=== PATIENT | female | born 2000 | race Caucasian/White ===

== ENCOUNTER 2019-06-26 09:07 | Emergency (ER) | payer SELFPAY ==
--- NOTE | 2019-06-26 09:12 | ED_ITS ---
HPI - Nausea/Vomiting/Diarrhea General: Chief complaint: Abdominal Pain Stated complaint: N/V Time Seen by Provider: 06/26/19 09:12 Source: patient Mode of arrival: ambulatory Limitations: no limitations History of Present Illness: HPI Narrative: Patient comes in today with 1 day history of nausea vomiting and diarrhea starting last night. Patient also reports a low-grade fever. Patient reports no significant pain. Patient does have reflux with gastritis. She routinely has to take pantoprazole but has been without it due to her animals getting into her prescriptions. Patient appears well. Patient appears in no pain. MD elicited complaint: nausea, vomiting and diarrhea Associated nausea: Yes Associated symtoms: Reports nausea Review of Systems General: Reports: 10 or more systems reviewed and unremarkable except in HPI and below GI: Reports: nausea, vomiting and diarrhea PFSH ED PFSH: Statuses (acute, chronic, etc) shown below reflect problem list status as previously entered and may not be historically accurate Social History Smoking and tobacco status: never smoked Physical Exam Const: COMMON NORMALS: no apparent distress and oriented x3 GENERAL APPEARANCE: cooperative HENMT: COMMON NORMALS: normocephalic, external ears normal, EAC's normal, TM's normal bilaterally and external nose normal HEAD & SCALP: normal to ins pection and normocephalic FACE & SINUS: normal facial exam NOSE: external nose normal GENERAL EAR: hearing not grossly impaired EXTERNAL EAR: Yes external ears normal EXTERNAL AUDITORY CANAL: EAC's normal TYMPANIC MEMBRANE: TM's normal bilaterally MOUTH: oral and palatal mucosa normal THROAT: posterior oropharynx normal Eye: COMMON NORMALS: PERRL and EOMs intact bilaterally PUPIL: Yes PERRL Neck/C-Spine: COMMON NORMALS: full ROM and no lymphadenopathy Lymph: LYMPHATIC: no lymphedema noted Chest: COMMONS NORMALS: inspection of chest normal and palpation of chest normal Resp: COMMON NORMALS: normal respiratory effort and clear to auscultation bilaterally AUSCULTATION: clear to auscultation bilaterally Cardio: COMMON NORMALS: regular rate and regular rhythm RATE: regular rate RHYTHM: regular rhythm GI: COMMON NORMALS: soft to palpation AUSCULTATION: Yes normoactive bowel sounds PALPATION: Yes soft and Yes tender (mild epigastric, and left abd, no rebound or guarding) : COMMON NORMALS: Yes no CVA tenderness BLADDER/KIDNEY EXAM: Yes no CVA tenderness Back/Pelvis: COMMON NORMALS: no CVA tenderness and thoracic and lumbar spine normal to inspection Extremity: COMMON NORMALS: normal to inspection GENERAL: No edema Neuro: COMMON NORMALS: oriented x3, moves all extremities and no focal motor deficits Psych: COMMON NORMALS: mental status grossly normal and cooperative Skin: COMMON NORMALS: no rashes or lesions noted GENERAL SKIN EXAM: no rashes or lesions noted Course Vital Signs: Vital signs: Vital Signs Temperature 98.4 F 06/26/19 09:13 Pulse Rate 66 06/26/19 12:17 Respiratory Rate 118 H 06/26/19 12:17 Blood Pressure 113/66 06/26/19 12:17 Pulse Oximetry 98 06/26/19 12:17 MDM - Nausea/Vomiting/Diarrhea MDM Narrative: Medical decision making narrative: Patient comes in today with complaints of nausea vomiting and diarrhea starting last night. On exam abdomen soft some mild tenderness in epigastric area, vital signs are stable without fever. Respirations are even. Lungs are clear to auscultation. Patient does not appear ill. Differential diagnosis gastroenteritis, urinary tract infection, cholecystitis, pancreatitis, appendicitis, dehydration. Patient was given 1 ondansetron for nausea with good relief. Patient was tolerating p.o. fluids well. Laboratory values were normal without signs of sepsis or significant infection. Urine was normal. Reviewed exam with patient recommended treatment with fluids and rest and follow-up with primary care as needed. Patient should return to the ER for high fever or persistent vomiting. Patient reports understanding agreed to plan. Lab Data: Labs: Lab Results 06/26/19 06/26/19 06/26/19 Range/Units 09:26 09:26 09:50 WBC 7.5 (4.5-13.0) 10^3/ uL RBC 4.10 (4.1-5.3) 10^6/u L Hgb 12.6 (11.5-15.3) g/dL Hct 37.9 (37.0-47.0) % MCV 92.4 (81-99) fL MCH 30.7 (28.0-34.0) pg MCHC 33.2 (30.0-36.0) g/dL RDW 11.8 L (12.1-15.1) % Plt Count 232 (130-400) 10^3/c mm MPV 10.2 (7.4-10.4) fL Neut % (Auto) 50.9 % Lymph % (Auto) 34.4 % [place] % (Auto) 7.5 % Eos % (Auto) 6.4 % Baso % (Auto) 0.7 % Neut # (Auto) 3.8 (1.8-8.0) 10^3/u L Lymph # (Auto) 2.6 (1.5-6.5) 10^3/u L [place] # (Auto) 0.6 (0.2-0.9) 10^3/u L Eos # (Auto) 0.5 (0.0-0.8) 10^3/u L Baso # (Auto) 0.1 (0.0-0.1) 10^3/u L Nucleated RBC % (a uto) 0 % Nucleated RBCs # 0.0 /100WBC Sodium 140 (136-145) mmol/L Potassium 4.5 (3.5-5.1) mmol/L Chloride 106 (98-107) mmol/L Carbon Dioxide 24 (22-29) mmol/L Anion Gap 14.5 (5-19) BUN 17 (6-20) mg/dL Creatinine 0.7 (0.5-0.9) mg/dL GFR Calculation 106.7 (90-130) mL/min Glucose 101 (65-115) mg/dL Calcium 9.8 (8.5-10.5) mg/dL Total Bilirubin 0.3 (0.15-1.2) mg/dL AST 15 (0-32) U/L ALT 11 (0-33) U/L Alkaline Phosphata se 50 (35-105) IU/L Total Protein 7.6 (6.6-8.7) g/dL Albumin 4.5 (3.5-5.2) g/dL Globulin 3.1 (1.3-4.6) g/dL Lipase 17 (13-60) U/L Urine Color (Yellow) Urine Appearance (CLEAR) Urine pH (5-7) Ur Specific Gravit y (1.005-1.030) Urine Protein (Negative) Urine Glucose (UA) (Normal) Urine Ketones (Negative) Urine Occult Blood (Negative) Urine Nitrate (Negative) Urine Bilirubin (NEGATIVE) Urine Urobilinogen (Negative) mg/dL Ur Leukocyte Archana ase (Negative) Urine RBC (0-2) /hpf Urine WBC (0-5) /hpf Ur Squamous Epith Cells (0-5) Urine Bacteria (NONE) Urine Mucus Urine HCG, Qual Negative (Negative) Influenza Type A A g (Negative) POC Influenza B Ag (Negative) 06/26/19 06/26/19 Range/Units 09:50 09:50 WBC (4.5-13.0) 10^3/ uL RBC (4.1-5.3) 10^6/u L Hgb (11.5-15.3) g/dL Hct (37.0-47.0) % MCV (81-99) fL MCH (28.0-34.0) pg MCHC (30.0-36.0) g/dL RDW (12.1-15.1) % Plt Count (130-400) 10^3/c mm MPV (7.4-10.4) fL Neut % (Auto) % Lymph % (Auto) % [place] % (Auto) % Eos % (Auto) % Baso % (Auto) % Neut # (Auto) (1.8-8.0) 10^3/u L Lymph # (Auto) (1.5-6.5) 10^3/u L [place] # (Auto) (0.2-0.9) 10^3/u L Eos # (Auto) (0.0-0.8) 10^3/u L Baso # (Auto) (0.0-0.1) 10^3/u L Nucleated RBC % (a uto) % Nucleated RBCs # /100WBC Sodium (136-145) mmol/L Potassium (3.5-5.1) mmol/L Chloride (98-107) mmol/L Carbon Dioxide (22-29) mmol/L Anion Gap (5-19) BUN (6-20) mg/dL Creatinine (0.5-0.9) mg/dL GFR Calculation (90-130) mL/min Glucose (65-115) mg/dL Calcium (8.5-10.5) mg/dL Total Bilirubin (0.15-1.2) mg/dL AST (0-32) U/L ALT (0-33) U/L Alkaline Phosphata se (35-105) IU/L Total Protein (6.6-8.7) g/dL Albumin (3.5-5.2) g/dL Globulin (1.3-4.6) g/dL Lipase (13-60) U/L Urine Color Straw (Yellow) Urine Appearance Clear (CLEAR) Urine pH 6 (5-7) Ur Specific Gravit y 1.015 (1.005-1.030) Urine Protein Neg (Negative) Urine Glucose (UA) Norm (Normal) Urine Ketones Negative (Negative) Urine Occult Blood 3+ H (Negative) Urine Nitrate Negative (Negative) Urine Bilirubin Neg (NEGATIVE) Urine Urobilinogen Norm (Negative) mg/dL Ur Leukocyte Archana ase Negative (Negative) Urine RBC 5-10 H (0-2) /hpf Urine WBC 0-4 H (0-5) /hpf Ur Squamous Epith Cells 5-10 H (0-5) Urine Bacteria 1+ H (NONE) Urine Mucus Trace Urine HCG, Qual (Negative) Influenza Type A A g Negative (Negative) POC Influenza B Ag Negative (Negative) Discharge Plan Discharge Patient Disposition: Home, Self-Care Clinical Impression: Gastroenteritis Condition: Stable Prescriptions: New ondansetron HCl 4 mg tablet 4 mg PO Q8H PRN (Reason: nausea and vomiting) Qty: 10 RF: 0 Discharge Orders: Discharge Order (Routine); Ordered 06/26/19 Ordered By: Pepe Phillips Referrals: Milady Taylor MD [Primary Care Provider] - Discharge Diet: Usual diet Discharge Activity: Increase activity as tolerated Patient Instructions: Gastroenteritis (ED) Activity Restrictions/Additional Instructions: Drink plenty of fluids Activity as tolerated Acetaminophen and ibuprofen for fever Follow-up as needed Discharge Date/Time: 06/26/19 12:24 Coding Level of Care Code ED Chief Technologist for Chg Fwd Exam Problem Focused
[2019-06-26 09:13] VITALS: BP 119/79; PULSE 78; RESP 15; TEMP 36.9; O2SAT 97; BMI 22.6
[2019-06-26 09:37] LABS: Basophils # 0.1 10^3/uL (0.0-0.1); Basophils % 0.7 %; Eosinophils # 0.5 10^3/uL (0.0-0.8); Eosinophils % 6.4 %; Hematocrit 37.9 % (37.0-47.0); Hemoglobin 12.6 g/dL (11.5-15.3); Lymphocytes # 2.6 10^3/uL (1.5-6.5); Lymphocytes % 34.4 %; Mean Corpuscular HGB Conc 33.2 g/dL (30.0-36.0); Mean Corpuscular Hemoglobin 30.7 pg (28.0-34.0); Mean Corpuscular Volume 92.4 fL (81-99); Mean Platelet Volume 10.2 fL (7.4-10.4); Monocytes # 0.6 10^3/uL (0.2-0.9); Monocytes % 7.5 %; Neutrophils # 3.8 10^3/uL (1.8-8.0); Neutrophils % 50.9 %; Nucleated Red Blood Cells % 0 %; Platelet Count 232 10^3/cmm (130-400); Red Cell Distribution Width 11.8 % (12.1-15.1); White Blood Count 7.5 10^3/uL (4.5-13.0)
[2019-06-26] MEDS: ondansetron 4 MG Tablet PO (09:49)
[2019-06-26 09:54] LABS: Alanine Aminotransferase 11 U/L (0-33); Albumin Level 4.5 g/dL (3.5-5.2); Alkaline Phosphatase 50 IU/L (35-105); Anion Gap 14.5 (5-19); Aspartate Amino Transferase 15 U/L (0-32); Blood Urea Nitrogen 17 mg/dL (6-20); Calcium 9.8 mg/dL (8.5-10.5); Carbon Dioxide 24 mmol/L (22-29); Chloride 106 mmol/L (98-107); Globulin 3.1 g/dL (1.3-4.6); Glomerular Filtration Rate 106.7 mL/min (90-130); Glucose 101 mg/dL (65-115); Lipase 17 U/L (13-60); Potassium 4.5 mmol/L (3.5-5.1); Sodium 140 mmol/L (136-145); Total Bilirubin 0.3 mg/dL (0.15-1.2); Total Protein 7.6 g/dL (6.6-8.7)
[2019-06-26 10:23] LABS: Add Urine Microscopic? YES; Bilirubin Urine Neg (NEGATIVE); Blood Urine 3+ (Negative); Glucose Urine UA Norm (Normal); Ketones Urine Negative (Negative); Leukocyte Esterase Urine Negative (Negative); Nitrate Urine Negative (Negative); Protein Urine Neg (Negative); Specific Gravity, Urine 1.015 (1.005-1.030); Urine Appearance Clear (CLEAR); Urine Color Straw (Yellow); Urobilinogen Urine Norm (Negative); pH Urine 6 (5-7)
[2019-06-26 10:25] LABS: Mucus Urine TRACE
[2019-06-26 10:26] LABS: Add Urine Culture? No; Bacteria Urine 1+; WBC Urine 0-4 /hpf (0-5)
[2019-06-26 11:00] LABS: Influenza A by IFA Negative (Negative); Influenza B by IFA Negative (Negative)
--- NOTE | 2019-06-26 12:15 | PC.NURSE ---
patient ready discharge no needs voiced
[2019-06-26 12:17] VITALS: BP 113/66; PULSE 66; RESP 118; O2SAT 98
== END 2019-06-26 12:24 | disposition home or self-care (01) ==
PROVIDERS: Emergency Provider Nurse Practitioner Family; Family Provider Family Medicine; PCP Family Medicine
DX: K52.9 Noninfective gastroenteritis and colitis, unspecified (principal)
CPT/HCPCS: 36415; 80053; 81001; 81025; 83690; 85025; 87804; 99282; 99283; Q0162

== ENCOUNTER → 2019-08-20 12:41 | Outpatient (BNVA) | payer SELFPAY | PROVIDERS: Family Provider Family Medicine; PCP Family Medicine; Visit Provider Nurse Practitioner Family | DX: R05 Cough (principal) | CPT/HCPCS: 87400; 87635 ==

== ENCOUNTER 2019-12-07 18:04 | Emergency (ER) | payer SELFPAY ==
[2019-12-07 18:22] VITALS: BP 115/72; PULSE 80; RESP 16; TEMP 37.1; O2SAT 95; BMI 22.7
--- NOTE | 2019-12-07 18:47 | ECG_ITS ---
[facility] Test Date: 2019-12-07 Pat Name: Jennifer Hong Department: Room: Gender: Female Digital Asset Manager: : 2000 Requested By: Isela Eddy Order Number: [id number] Sandra MD: Sanket Kuo M.D. Measurements Intervals [place] Rate: 59 P: 60 [place]: 136 QRS: 50 QRSD: 100 T: 46 QT: 397 QTc: 395 Interpretive Statements SINUS BRADYCARDIA POSSIBLE RIGHT VENTRICULAR CONDUCTION DELAY [RSR (QR) IN V1/V2] Compared to ECG 03/09/2019 14:57:45 Sinus rhythm no longer present Sinus arrhythmia no longer present ST (T wave) deviation no longer present Electronically Signed On 12-08-2019 20:27:00 CDT by Sanket Kuo M.D. [id number]
--- NOTE | 2019-12-07 19:00 | US_ITS ---
WS: [id number] RIGHT UPPER QUADRANT ULTRASOUND HISTORY: abd pain COMPARISON: None available. Liver: 11.4 cm in length. Normal size and echogenicity with no intrahepatic dilatation. No mass. Gallbladder: Normally distended gallbladder with no stones or wall thickening. CBD: 0.3 cm Pancreas: Normal size and echogenicity. Right kidney: 10.8 cm in length. Normal echogenicity with no mass or hydronephrosis. Aorta and IVC: Unremarkable. No ascites. US/US gall bladder [id number] IMPRESSION: Normal RIGHT upper quadrant ultrasound.
--- NOTE | 2019-12-07 19:00 | ED_ITS ---
HPI - General Adult General: Chief complaint: General Medical Stated complaint: vomiting blood, syncope, cough Time Seen by Provider: 12/07/19 18:44 Source: patient Mode of arrival: ambulatory Limitations: no limitations History of Present Illness: HPI narrative: 19-year-old female who states she has a history of vomiting in the past along with [place] tears. Patient states she has had vomiting over the last 3 days with no relief. She states today she started vomiting blood and had a syncopal event. She states she has some epigastric abdominal pain. Denies any blood in her stools or diarrhea. She denies any worsening or improving factors. Onset (ago): day(s) Associated symptoms: Reports vomiting; Deny chest pain, dyspnea, headache(s) or rash Review of Systems Const: Denies: fever(s), chills, body aches or change in appetite Eyes: Denies: blurry vision or eye discomfort ENMT: Denies: throat pain or dental pain Card: Denies: chest pain Resp: Denies: dyspnea GI: Reports: vomiting : Denies: dysuria Musc: Denies: neck pain or back pain Skin/Breast: Denies: rash Neuro: Denies: headache(s) Psych: Denies: depression Santy/Lymph: Denies: easy bruising All/Imm: Denies: urticaria PFSH ED PFSH: Social History Smoking and tobacco status: never smoked Female Reproductive History: Date of last menstrual period: 12/07/19 Physical Exam Const: COMMON NORMALS: no acute distress, patient oriented x3 and healthy appearing HENMT: COMMON NORMALS: normocephalic and atraumatic HEAD & SCALP: normocephalic and atraumatic Eye: COMMON NORMALS: Equal, round and reactive pupils present and EOMs intact bilaterally PUPIL: Yes Equal, round and reactive pupils present Neck/C-Spine: COMMON NORMALS: full ROM and supple Chest: COMMONS NORMALS: normal inspection of the chest and normal palpation of entire chest wall Resp: COMMON NORMALS: normal respiratory effort, No retractions, No use of accessory muscles and clear to auscultation bilaterally AUSCULTATION: clear to auscultation bilaterally Cardio: COMMON NORMALS: regular rate, regular rhythm and No murmurs present (Cardio) RATE: regular rate RHYTHM: regular rhythm GI: COMMON NORMALS: Normal to inspection, nondistended, normoactive bowel sounds present, Soft to palpation, non-tender and no masses PALPATION: Yes Soft to palpation Extremity: COMMON NORMALS: normal to inspection and full ROM Neuro: COMMON NORMALS: patient oriented x3, moves all extremities and no focal motor deficits Psych: COMMON NORMALS: mental status grossly normal, Normal thought process present and cooperative THOUGHT PROCESS: Normal thought process present Skin: COMMON NORMALS: no rashes or lesions noted and no wounds GENERAL SKIN EXAM: no rashes or lesions noted Course Vital Signs: Vital signs: Vital Signs Temperature 98.7 F 12/07/19 18:22 Pulse Rate 75 12/07/19 21:11 Respiratory Rate 19 H 12/07/19 21:11 Blood Pressure 127/80 12/07/19 21:11 Pulse Oximetry 97 12/07/19 21:11 MDM - General Adult MDM Narrative: Medical decision making narrative: Patient presents here with vomiting that is chronic in nature. Patient also had some slight hematemesis likely from a [place] tear. Patient has no signs of major GI bleed. She feels improved here after Zofran. Abdominal exam is benign and ultrasound of the gallbladder was negative. Will prescribe her Zofran and she is stable for discharge. She is to return if worsening. Lab Data: Labs: Lab Results 12/07/19 12/07/19 Range/Units 19:16 19:16 WBC 13.2 H (4.5-13.0) 10^3/ uL RBC 4.43 (4.1-5.3) 10^6/u L Hgb 14.1 (11.5-15.3) g/dL Hct 41.6 (37.0-47.0) % MCV 93.9 (81-99) fL MCH 31.8 (28.0-34.0) pg MCHC 33.9 (30.0-36.0) g/dL RDW 11.6 L (12.1-15.1) % Plt Count 270 (130-400) 10^3/c mm MPV 10.1 (7.4-10.4) fL Neut % (Auto) 61.5 % Lymph % (Auto) 20.0 % [place] % (Auto) 5.7 % Eos % (Auto) 11.7 % Baso % (Auto) 0.8 % Neut # (Auto) 8.13 H (1.8-8.0) 10^3/u L Lymph # (Auto) 2.6 (1.5-6.5) 10^3/u L [place] # (Auto) 0.8 (0.2-0.9) 10^3/u L Eos # (Auto) 1.6 H (0.0-0.8) 10^3/u L Baso # (Auto) 0.1 (0.0-0.1) 10^3/u L Nucleated RBC % (a uto) 0 % Nucleated RBCs # 0.0 /100WBC Sodium 139 (136-145) mmol/L Potassium 3.9 (3.5-5.1) mmol/L Chloride 106 (98-107) mmol/L Carbon Dioxide 24 (22-29) mmol/L Anion Gap 12.9 (5-19) BUN 10 (6-20) mg/dL Creatinine 0.5 (0.5-0.9) mg/dL GFR Calculation 157.3 H (90-130) mL/min Glucose 88 (65-115) mg/dL Calculated Osmolal ity 283 L (285-295) mOsm/k g Calcium 9.4 (8.5-10.5) mg/dL Total Bilirubin 0.5 (0.15-1.2) mg/dL AST 14 (0-32) U/L ALT 10 (0-33) U/L Alkaline Phosphata se 49 (35-105) IU/L Total Protein 7.4 (6.6-8.7) g/dL Albumin 4.6 (3.5-5.2) g/dL Globulin 2.8 (1.3-4.6) g/dL Lipase 13 (13-60) U/L EKG Data^: EKG 1: Attestation: I personally reviewed and interpreted this EKG as follows: EKG interpretation date: 12/07/19 EKG interpretation time: 19:25 Interpretation: sinus dash hr [address] or t wave abnormalities qrs 100 qtc 396 Discharge Plan Discharge Patient Disposition: Home, Self-Care Clinical Impression: Vomiting Qualifiers: Vomiting type: unspecified Vomiting Intractability: non-intractable Nausea presence: with nausea Qualified Code(s): R11.2 - Nausea with vomiting, unspecif ied Condition: Stable Prescriptions: New ondansetron 4 mg tablet,disintegrating 4 mg PO Q6H PRN (Reason: nausea and vomiting) Qty: 14 RF: 0 No Action iron 325 mg (65 mg iron) Tablet 325 mg PO DAILY RF: 0 Discharge Orders: Discharge Order (Routine); Ordered 12/07/19 Ordered By: Isela Eddy Referrals: Milady Taylor MD [Primary Care Provider] - 1-3 days Discharge Diet: Advance as tolerated Discharge Activity: Resume usual activity Patient Instructions: Acute Nausea and Vomiting (ED) Discharge Date/Time: 12/07/19 21:07 Coding Level of Care Code ED Processing Operator for Chg Fwd Exam Comprehensive
[2019-12-07] MEDS: sodium chloride 0.9% 1,000 ML 999 ML IV (19:10)
[2019-12-07 19:12] VITALS: BP 127/59; PULSE 73; RESP 18; O2SAT 95
[2019-12-07 19:24] LABS: Basophils # 0.1 10^3/uL (0.0-0.1); Basophils % 0.8 %; Eosinophils # 1.6 10^3/uL (0.0-0.8); Eosinophils % 11.7 %; Hematocrit 41.6 % (37.0-47.0); Hemoglobin 14.1 g/dL (11.5-15.3); Lymphocytes # 2.6 10^3/uL (1.5-6.5); Mean Corpuscular HGB Conc 33.9 g/dL (30.0-36.0); Mean Corpuscular Hemoglobin 31.8 pg (28.0-34.0); Mean Corpuscular Volume 93.9 fL (81-99); Mean Platelet Volume 10.1 fL (7.4-10.4); Monocytes # 0.8 10^3/uL (0.2-0.9); Monocytes % 5.7 %; Neutrophils # 8.13 10^3/uL (1.8-8.0); Neutrophils % 61.5 %; Nucleated Red Blood Cells % 0 %; Platelet Count 270 10^3/cmm (130-400); Red Blood Count 4.43 10^6/uL (4.1-5.3); Red Cell Distribution Width 11.6 % (12.1-15.1); White Blood Count 13.2 10^3/uL (4.5-13.0)
[2019-12-07 19:46] LABS: Alanine Aminotransferase 10 U/L (0-33); Albumin Level 4.6 g/dL (3.5-5.2); Alkaline Phosphatase 49 IU/L (35-105); Anion Gap 12.9 (5-19); Aspartate Amino Transferase 14 U/L (0-32); Blood Urea Nitrogen 10 mg/dL (6-20); Calcium 9.4 mg/dL (8.5-10.5); Carbon Dioxide 24 mmol/L (22-29); Chloride 106 mmol/L (98-107); Globulin 2.8 g/dL (1.3-4.6); Glomerular Filtration Rate 157.3 mL/min (90-130); Glucose 88 mg/dL (65-115); Lipase 13 U/L (13-60); Osmolality Calculated 283 mOsm/kg (285-295); Potassium 3.9 mmol/L (3.5-5.1); Sodium 139 mmol/L (136-145); Total Bilirubin 0.5 mg/dL (0.15-1.2); Total Protein 7.4 g/dL (6.6-8.7)
[2019-12-07 19:51] VITALS: PULSE 65; RESP 21; O2SAT 99
[2019-12-07 20:46] VITALS: BP 124/72; PULSE 75; RESP 13; O2SAT 98
[2019-12-07 21:11] VITALS: BP 127/80; PULSE 75; RESP 19; O2SAT 97
== END 2019-12-07 21:07 | disposition home or self-care (01) ==
PROVIDERS: Emergency Provider Emergency Medicine; PCP Family Medicine
DX: R11.2 Nausea with vomiting, unspecified (principal)
CPT/HCPCS: 12345; 36415; 76705; 80053; 83690; 85025; 93005; 96360; 99283; 99284; J7030

== ENCOUNTER → 2020-01-25 16:17 | Outpatient (BNVA) | payer SELFPAY | PROVIDERS: PCP Family Medicine; Visit Provider Nurse Practitioner Family | DX: J02.0 Streptococcal pharyngitis (principal) | CPT/HCPCS: 87071; 87880 ==

== ENCOUNTER 2020-01-30 15:08 | Emergency (ER) | payer SELFPAY ==
[2020-01-30] VITALS (8 sets, daily range): BP systolic 126–136; BP diastolic 76–83; PULSE 88–102; RESP 17–18; TEMP 36.9; O2SAT 94–98; BMI 24.3
--- NOTE | 2020-01-30 15:11 | XRR_ITS ---
PROCEDURE INFORMATION: Exam: XR Chest, 2 Views Exam date and time: 01/30/2020 3:11 PM Age: 19 years old Clinical indication: Shortness of breath; Additional info: Cough TECHNIQUE: Imaging protocol: XR of the chest Views: 2 views. COMPARISON: CR Chest 1 [place] [id number] 03/22/2019 1:45 PM FINDINGS: Lungs: Lungs are clear bilaterally. Pleural space: No pleural effusion. No pneumothorax. Heart/Mediastinum: The cardiac silhouette and mediastinal contours are unremarkable. Bones/joints: Unremarkable for age. XR/XR chest 2V* [id number] IMPRESSION: No acute cardiopulmonary process.
--- NOTE | 2020-01-30 15:28 | CTR_ITS ---
PROCEDURE INFORMATION: Exam: CT Head Without Contrast Exam date and time: 01/30/2020 4:01 PM Age: 19 years old Clinical indication: Syncope and collapse; Patient HX: Syncope episode hitting R forehead on bathtub; Additional info: Fell, hit head, vomiting TECHNIQUE: Imaging protocol: Computed tomography of the head without contrast. Sagittal and coronal reformatted images were created and reviewed. Radiation optimization: All CT scans at this facility use at least one of these dose optimization techniques: automated exposure control; mA and/or kV adjustment per patient size (includes targeted exams where dose is matched to clinical indication); or iterative reconstruction. COMPARISON: No relevant prior studies available. RADIATION DOSE METRICS: Total DLP (mGy-cm): 725.28 FINDINGS: Brain: No acute intracranial hemorrhage. No acute infarct. No intra-axial or extra-axial masses. [place]-white matter differentiation is preserved. No cerebral edema. No extra-axial fluid collections. No midline shift. No evidence for Chiari 1 malformation. Ventricles: No hydrocephalus. Bones/joints: No acute fracture. Paranasal sinuses: Mild mucoperiosteal thickening in the the right and left ethmoid sinuses. Other visualized paranasal sinuses are clear. Mastoid air cells: Visualized mastoid air cells are clear bilaterally. Orbits: No acute abnormality in the visualized orbits. Soft tissues: The extracranial soft tissues are unremarkable. CT/CT head wo con* [id number] IMPRESSION: 1. No acute abnormality of the brain. 2. Mild mucoperiosteal thickening in the the right and left ethmoid sinuses. Radiation Dose CTDIVOL = (mGy): DLP = 725.28 (mGy-cm)
--- NOTE | 2020-01-30 15:29 | W.ED.GENADLT ---
HPI - General Adult General: Chief complaint: General Medical Stated complaint: SOB, COUGH Time Seen by Provider: 01/30/20 15:21 History of Present Illness: HPI narrative: This patient is a 19-year-old female presenting with cough and shortness of breath. She also says she passed out twice today at home and the last time she passed out she fell and hit her head on the bathtub. She has pain in her forehead and started vomiting after that. She is concerned about a head injury. She is also concerned about her difficulty breathing. She started having symptoms over last weekend and was seen at urgent care on Friday or Friday. They diagnosed her with a sinus infection and put her on Augmentin. She has not really started feeling better from that. She has not had any fevers. She denies body aches. She has not been exposed to anyone with COVID as far she knows. She has a history of asthma when she was young but has not had a problems with it in several years. She does not routinely use inhalers. She has been using some sinus spray. She thinks she passed out today because she was having so much trouble breathing. She also admits that sometimes she gets panic attacks and that causes her to pass out. Onset (ago): week(s) (1) Location: head Severity: moderate Associated symptoms: Reports dyspnea, headache(s), nausea, syncope and vomiting; Deny chest pain, malaise or rash Review of Systems General: Reports: 10 or more systems reviewed and unremarkable except in HPI and below Const: Reports: fatigue; Denies: fever(s), chills or malaise Eyes: Denies: change in vision ENMT: Reports: ear or mastoid pain and sinus pain; Denies: odynophagia Card: Reports: syncope; Denies: chest pain or swelling of feet/ankles Resp: Reports: dyspnea, productive cough and wheezing; Denies: non-productive cough GI: Reports: nausea and vomiting; Denies: abdominal pain : Denies: flank pain or difficulty voiding Musc: Denies: neck pain or back pain Skin/Breast: Denies: rash Neuro: Reports: headache(s); Denies: numbness in extremities or weakness in extremities Santy/Lymph: Denies: easy bruising or easy bleeding [facility] ED PFSH: Medical History (Updated 01/30/20 @ 17:35 by Vanessa Hoang MD) Asthma Social History Smoking and tobacco status: never smoked Female Reproductive History: Date of last menstrual period: 01/30/20 Physical Exam Const: COMMON NORMALS: no acute distress, patient oriented x3, no limitations and alert GENERAL APPEARANCE: cooperative HENMT: HEAD & SCALP: normal to inspection FACE & SINUS: normal facial exam Eye: GENERAL EYE: appearance normal, both eyes and all related structures Neck/C-Spine: COMMON NORMALS: supple, no meningeal signs and no JVD Chest: COMMONS NORMALS: normal inspection of the chest Resp: EFFORT & INSPECTION: Yes tachypneic, Yes labored and Yes uses accessory muscles AUSCULTATION: wheezes Cardio: COMMON NORMALS: no JVD, regular rate, regular rhythm and No murmurs present (Cardio) RATE: regular rate RHYTHM: regular rhythm GI: COMMON NORMALS: Normal to inspection, nondistended, normoactive bowel sounds present, Soft to palpation and non-tender INSPECTION: Yes normal to inspection AUSCULTATION: Yes normoactive bowel sounds PALPATION: Yes Soft to palpation Back/Pelvis: COMMON NORMALS: thoracic and lumbar spine normal to inspection Extremity: COMMON NORMALS: normal to inspection Neuro: COMMON NORMALS: patient oriented x3, moves all extremities, no focal motor deficits and no sensory deficits noted SENSORIUM/ORIENTATION: Yes alert MENINGEAL SIGNS: Yes no meningeal signs Psych: COMMON NORMALS: mental status grossly normal, cooperative and normal affect Skin: COMMON NORMALS: no rashes or lesions noted and turgor normal GENERAL SKIN EXAM: no rashes or lesions noted and turgor normal Course ED course: Patient presents with symptoms of sinus congestion and cough. I do not think she is at high risk for COVID with normal oxygen saturation and significant wheezing on exam. So far I have not seen wheezing as a symptom or physical finding associated with COVID. She is on Augmentin that was given to her at urgent care. Chest x-ray was clear. CT of her head was negative and this was done because she had fallen and hit her head with subsequent vomiting. She was given a DuoNeb treatment which improved her lung sounds somewhat but she was still wheezing pretty significantly. She is also been given oral prednisone and I have ordered a repeat nebulizer treatment. I expect that she will clear up well enough to go home. I think her passing out may have been related to her anxiety as she suspects or possibly due to the significant wheezing that she has. Vital Signs: Vital signs: Vital Signs Temperature 98.4 F 01/30/20 15:22 Pulse Rate 98 01/30/20 18:30 Respiratory Rate 17 01/30/20 17:59 Blood Pressure 126/76 01/30/20 18:30 Pulse Oximetry 94 01/30/20 18:30 Discharge Plan Discharge Patient Disposition: Home Clinical Impression: Acute upper respiratory infection, Acute bronchospasm Syncope Qualifiers: Syncope type: unspecified Qualified Code(s): R55 - Syncope and collapse Closed head injury Qualifiers: Encounter type: initial encounter Qualified Code(s): S09.90XA - Unspecified injury of head, initial encounter Condition: Stable Prescriptions: New albuterol sulfate 90 mcg/actuation HFA aerosol inhaler 2 inh INHALATION Q4H PRN (Reason: shortness of breath or wheezing) Qty: 18 RF: 0 No Action amoxicillin-pot clavulanate [Augmentin] 875-125 mg tablet 1 tab PO BID 10 Days Qty: 20 RF: 0 ferrous sulfate [iron] 325 mg (65 mg iron) Tablet 325 mg PO DAILY RF: 0 Multiple Vitamin, Womens Tablet 1 tab PO DAILY RF: 0 Discharge Orders: Discharge Order (Routine); Ordered 01/30/20 Ordered By: Vanessa Hoang Referrals: Milady Taylor MD [Primary Care Provider] - Discharge Diet: Usual diet Discharge Activity: Resume usual activity Patient Instructions: Upper Respiratory Infection (ED), Bronchospasm (ED) Activity Restrictions/Additional Instructions: Return to the ED if increasing shortness of breath, fever, vomiting or any other new or concerning symptoms. Use the albuterol every 4 hours as needed for wheezing or shortness of breath. 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
--- NOTE | 2020-01-30 15:40 | PC.NURSE ---
pt to radiology
[2020-01-30] MEDS: ipratropium-albuterol 3 mL Neb INHALATION (15:43)
[2020-01-30] MEDS: predniSONE 20 mg Tablet 60 MG PO (16:02)
[2020-01-30] MEDS: albuterol 8 gm MDI 2 PUFF INHALATION (17:58)
== END 2020-01-30 18:30 | disposition home or self-care (01) ==
PROVIDERS: Emergency Provider Emergency Medicine; PCP Family Medicine
DX: J06.9 Acute upper respiratory infection, unspecified (principal); J98.01 Acute bronchospasm; R55 Syncope and collapse; S09.8XXA Other specified injuries of head, initial encounter; W19.XXXA Unspecified fall, initial encounter
CPT/HCPCS: 12345; 70450; 71046; 94640; 99281; 99283; J3535; J7512; J7611

== ENCOUNTER → 2020-03-14 13:33 | Outpatient (BNVA) | payer SELFPAY | PROVIDERS: PCP Family Medicine; Visit Provider Nurse Practitioner | DX: R82.90 Unspecified abnormal findings in urine (principal) | CPT/HCPCS: 81000 ==

== ENCOUNTER 2020-05-17 07:37 | Emergency (ER) | payer OTHER, SELFPAY ==
[2020-05-17 08:13] VITALS: BP 138/84; PULSE 77; RESP 18; TEMP 36.2; O2SAT 97; BMI 24.2
--- NOTE | 2020-05-17 08:26 | XR_ITS ---
WS: [id number] Exam: XR chest 1V portable [id number] Date/Time of Exam: 05/17/2020 8:26 AM Reason For Exam: cough Comparison 01/30/2020. Findings: The lungs are clear and fully expanded. Costophrenic angles are sharp. No infiltrates. Bronchovascula r relief appears normal. Cardiac silhouette is unremarkable. Bony elements are intact. XR/XR chest 1V portable [id number] IMPRESSION: Unremarkable chest radiograph.
--- NOTE | 2020-05-17 08:26 | W.ED.NAVMDI ---
HPI - Nausea/Vomiting/Diarrhea General: Chief complaint: Nausea/Vomiting/Diarrhea Stated complaint: n/v Time Seen by Provider: 05/17/20 07:59 Source: patient Mode of arrival: ambulatory Limitations: no limitations History of Present Illness: HPI Narrative: 20-year-old female patient presents to the emergency department with 3-day onset of nausea vomiting. She reports vomiting was worse this morning. Not able to keep down water. She reports onset of cough congestion x1 week, states increased usage of inhaler, albuterol twice daily. States 101 fever onset yesterday. Last bowel movement yesterday. Last menstrual period today, previous menstrual cycle April 18, 2020. States previous menstrual cycle heavier than normal. She reports this morning, passed a large clot vaginally. Contributes abdominal pain to her menstrual cycle. Describes abdominal pain similar to that of her menstrual cycle. Reports does not have insurance, uses albuterol inhaler sparingly to make albuterol supply longer. 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) Associated symtoms: Reports cough (7 days - increased use of albuterol inhaler - twice daily), dysuria (x 3 days), fevers/chills, malaise, nausea and short of breath; Denies anxiety, chest pain, headache(s) or palpitations Treatment prior to arrival: other (increased use of inhaler) Review of Systems General: Reports: 10 or more systems reviewed and unremarkable except in HPI and below Const: Reports: malaise Eyes: Denies: blurry vision or eye redness ENMT: Denies: throat pain, uvular edema, oral sores, dental pain, halitosis or disequilibrium Card: Denies: chest pain, palpitations, irregular heart rhythm, swelling of feet/ankles or dyspnea on exertion Resp: Reports: productive cough, wheezing and chest congestion; Denies: dyspnea or non-productive cough GI: Reports: abdominal pain, nausea, vomiting and GI cramping; Denies: hematemesis, heartburn, diarrhea or constipation : Reports: dysuria (x 3 days), vaginal bleeding, dysmenorrhea, change in menstrual flow and pelvic pain; Denies: difficulty voiding or urinary urgency Musc: Denies: neck pain, back pain, joint pain or joint swelling Skin/Breast: Denies: rash or pruritus Neuro: Denies: headache(s), weakness in extremities or behavioral changes Psych: Reports: change in appetite; Denies: anxiety or depression Sanyt/Lymph: Denies: easy bruising PFSH ED PFSH: Medical History (Updated 05/17/20 @ 09:58 by WALLY Quesada) Asthma Social History Smoking and tobacco status: never smoked Alcohol intake: never Substance/Drug Use: never Female Reproductive History: Date of last menstrual period: 05/17/20 Physical Exam Const: COMMON NORMALS: no acute distress, patient oriented x3, healthy appearing and alert GENERAL APPEARANCE: cooperative, comfortable and well hydrated HENMT: COMMON NORMALS: normocephalic, Normal external nose present and moist oral mucous membranes HEAD & SCALP: normocephalic NOSE: Normal external nose present THROAT: no uvular edema Eye: COMMON NORMALS: Equal, round and reactive pupils present and EOMs intact bilaterally GENERAL EYE: appearance normal, both eyes and all related structures PUPIL: Yes Equal, round and reactive pupils present Neck/C-Spine: COMMON NORMALS: full ROM and no lymphadenopathy GENERAL: Yes normal visual inspection and Yes trachea midline CERVICAL SPINE: Yes cervical ROM normal Lymph: LYMPHATIC: no lymphadenopathy noted Chest: COMMONS NORMALS: normal inspection of the chest and normal palpation of entire chest wall Resp: COMMON NORMALS: normal respiratory effort, No retractions and No use of accessory muscles EFFORT & INSPECTION: Yes able to speak in complete sentences, No respiratory distress, No decreased respiratory effort, No labored, Yes Actively coughing and Yes audible wheezes (LLE and LUE) Cardio: COMMON NORMALS: regular rate, regular rhythm, S1 normal heart sound present, S2 normal heart sound present and Peripheral pulses 2+ throughout RATE: regular rate RHYTHM: regular rhythm HEART SOUNDS: S1 normal heart sound present and S2 normal heart sound present PERIPHERAL PULSES: Peripheral pulses 2+ throughout GI: COMMON NORMALS: Normal to inspection, nondistended, normoactive bowel sounds present and Soft to palpation INSPECTION: Yes normal to inspection AUSCULTATION: Yes normoactive bowel sounds PALPATION: Yes Soft to palpation and Yes Tenderness to palpation present (GI) (suprapubic) : COMMON NORMALS: Yes no CVA tenderness BLADDER/KIDNEY EXAM: Yes no CVA tenderness Back/Pelvis: COMMON NORMALS: no CVA tenderness and thoracic and lumbar spine normal to inspection Extremity: COMMON NORMALS: normal to inspection and capillary refill normal Neuro: COMMON NORMALS: patient oriented x3 and no focal motor deficits SENSORIUM/ORIENTATION: Yes alert Psych: COMMON NORMALS: mental status grossly normal, Normal thought process present, cooperative, normal affect, speech normal and activity/motor behavior normal APPEARANCE: Yes grossly normal ACTIVITY/MOTOR BEHAVIOR: Yes appropriate eye contact SPEECH: Yes normal speech THOUGHT PROCESS: Normal thought process present Skin: COMMON NORMALS: no rashes or lesions noted and turgor normal GENERAL SKIN EXAM: no rashes or lesions noted and turgor normal Course ED course: 20-year-old female patient presents to the emergency department with nausea vomiting, acute asthma exacerbation and dysmenorrhea. hCG test negative. CBC with white blood count 11.3 thousand, chemistry unremarkable, Zofran administered here in the ED, improved symptoms that she was able to tolerate p.o. fluids. She was also administered Toradol for pain, menstrual, during her stay, her mother called to report her sister tested positive today for Covid. She reports exposure to her sister, patient requests to be tested for Covid today. Advised to remain in quarantine until results are known. Work note was provided, social service will assist with primary care follow-up. Advised to return to the emergency department if she developed chest pain, difficulty breathing or worsening asthma symptoms. She did not appear dehydrated today or nor did she appear in distress. Vital Signs: Vital signs: Vital Signs Temperature 97.2 F L 05/17/20 08:13 Pulse Rate 77 05/17/20 08:13 Respiratory Rate 18 05/17/20 08:13 Blood Pressure 138/84 05/17/20 08:13 Pulse Oximetry 97 05/17/20 08:13 MDM - Nausea/Vomiting/Diarrhea Lab Data: Labs: Lab Results 05/17/20 05/17/20 05/17/20 Range/Units 08:50 08:52 08:52 WBC 11.3 H (4.0-10.0) 10^3/ uL RBC 4.58 (4.1-5.3) 10^6/u L Hgb 14.2 (11.5-15.3) g/dL Hct 43.2 (37.0-47.0) % MCV 94.3 (81-99) fL MCH 31.0 (28.0-34.0) pg MCHC 32.9 (30.0-36.0) g/dL RDW 11.3 L (12.1-15.1) % Plt Count 286 (130-400) 10^3/c mm MPV 9.9 (7.4-10.4) fL Neut % (Auto) 42.0 % Lymph % (Auto) 25.7 % Throckmorton % (Auto) 6.0 % Eos % (Auto) 24.7 % Baso % (Auto) 1.4 % Neut # (Auto) 4.73 (1.8-7.7) 10^3/u L Lymph # (Auto) 2.9 (0.8-4.8) 10^3/u L Throckmorton # (Auto) 0.7 (0.2-0.9) 10^3/u L Eos # (Auto) 2.8 H (0.0-0.8) 10^3/u L Baso # (Auto) 0.2 H (0.0-0.1) 10^3/u L Nucleated RBC % (a uto) 0 % Nucleated RBCs # 0.0 /100WBC Sodium 139 (136-145) mmol/L Potassium 4.2 (3.5-5.1) mmol/L Chloride 105 (98-107) mmol/L Carbon Dioxide 26 (22-29) mmol/L Anion Gap 12.2 (5-19) BUN 8 (6-20) mg/dL Creatinine 0.6 (0.5-0.9) mg/dL GFR Calculation 126.2 (90-130) mL/min Glucose 98 (65-115) mg/dL Calculated Osmolal ity 286 (285-295) mOsm/k g Calcium 8.8 (8.5-10.5) mg/dL Total Bilirubin 0.5 (0.15-1.2) mg/dL AST 13 (0-32) U/L ALT 13 (0-33) U/L Alkaline Phosphata se 51 (35-105) IU/L Total Protein 7.2 (6.6-8.7) g/dL Albumin 4.2 (3.5-5.2) g/dL Globulin 3.0 (1.3-4.6) g/dL HCG, Qual (Negative) Urine Color Holley (Yellow) Urine Appearance Sl hazy (CLEAR) Urine pH 5 (5-7) Ur Specific Gravit y 1.020 (1.005-1.030) Urine Protein Neg (Negative) Urine Glucose (UA) Norm (Normal) Urine Ketones 1+ H (Negative) Urine Blood 3+ H (Negative) Urine Nitrate Negative (Negative) Urine Bilirubin Neg (Negative) Urine Urobilinogen 1 H (Negative) mg/dL Ur Leukocyte Archana ase Negative (Negative) Urine RBC >100 H (0-2) /hpf Urine WBC 0-4 H (0-5) /hpf Ur Squamous Epith Cells 0-4 H (0-5) /hpf Amorphous Sediment Not Reportable Urine Bacteria 1+ H (NONE) /hpf 05/17/20 Range/Units 08:52 WBC (4.0-10.0) 10^3/ uL RBC (4.1-5.3) 10^6/u L Hgb (11.5-15.3) g/dL Hct (37.0-47.0) % MCV (81-99) fL MCH (28.0-34.0) pg MCHC (30.0-36.0) g/dL RDW (12.1-15.1) % Plt Count (130-400) 10^3/c mm MPV (7.4-10.4) fL Neut % (Auto) % Lymph % (Auto) % Throckmorton % (Auto) % Eos % (Auto) % Baso % (Auto) % Neut # (Auto) (1.8-7.7) 10^3/u L Lymph # (Auto) (0.8-4.8) 10^3/u L Throckmorton # (Auto) (0.2-0.9) 10^3/u L Eos # (Auto) (0.0-0.8) 10^3/u L Baso # (Auto) (0.0-0.1) 10^3/u L Nucleated RBC % (a uto) % Nucleated RBCs # /100WBC Sodium (136-145) mmol/L Potassium (3.5-5.1) mmol/L Chloride (98-107) mmol/L Carbon Dioxide (22-29) mmol/L Anion Gap (5-19) BUN (6-20) mg/dL Creatinine (0.5-0.9) mg/dL GFR Calculation (90-130) mL/min Glucose (65-115) mg/dL Calculated Osmolal ity (285-295) mOsm/k g Calcium (8.5-10.5) mg/dL Total Bilirubin (0.15-1.2) mg/dL AST (0-32) U/L ALT (0-33) U/L Alkaline Phosphata se (35-105) IU/L Total Protein (6.6-8.7) g/dL Albumin (3.5-5.2) g/dL Globulin (1.3-4.6) g/dL HCG, Qual Negative (Negative) Urine Color (Yellow) Urine Appearance (CLEAR) Urine pH (5-7) Ur Specific Gravit y (1.005-1.030) Urine Protein (Negative) Urine Glucose (UA) (Normal) Urine Ketones (Negative) Urine Blood (Negative) Urine Nitrate (Negative) Urine Bilirubin (Negative) Urine Urobilinogen (Negative) mg/dL Ur Leukocyte Archana ase (Negative) Urine RBC (0-2) /hpf Urine WBC (0-5) /hpf Ur Squamous Epith Cells (0-5) /hpf Amorphous Sediment Urine Bacteria (NONE) /hpf Imaging Data^: CXR: Radiologist's impression: [address] [address] XRay Report Signed Patient: Jennifer Hong Unit #: [id number] : [id number] Age/Sex: 20 / F ADM Date: 05/17/20 Loc: ER Room/Bed: Attending Dr: Ordering Provider/Ordering MD: Paris Madden Date of Service: 05/17/20 Procedure(s): XR chest 1V portable [id number] Accession Number(s): [id number] Report Number: [id number] WS: [id number] Exam: XR chest 1V portable [id number] Date/Time of Exam: 05/17/2020 8:26 AM Reason For Exam: cough Comparison 01/30/2020. Findings: The lungs are clear and fully expanded. Costophrenic angles are sharp. No infiltrates. Bronchovascular relief appears normal. Cardiac silhouette is unremarkable. Bony elements are intact. XR/XR chest 1V portable [id number] IMPRESSION: Unremarkable chest radiograph. Dictated By: Ayaan Rodriguez DO Signed By: Ayaan Rodriguez DO Signed Date/Time: 05/17/20934 DD/ 3 Discharge Plan Discharge Patient Disposition: Home Clinical Impression: Suspected 2019 novel coronavirus infection, Bronchitis, Dysmenorrhea Asthma Qualifiers: Asthma severity: mild Asthma persistence: persistent Asthma complication type: with acute exacerbation Qualified Code(s): J45.31 - Mild persistent asthma with (acute) exacerbation Condition: Stable Prescriptions: New azithromycin 250 mg tablet See Rx Instructions .ROUTE .COMPLEX Qty: 6 RF: 0 prednisone 20 mg tablet 20 mg PO BID 5 Days Qty: 10 RF: 0 Ventolin HFA 90 mcg/actuation HFA aerosol inhaler 2 puff INHALATION Q4H PRN (Reason: shortness of breath or wheezing) Qty: 18 RF: 0 No Action phenazopyridine [Pyridium] 200 mg tablet 200 mg PO TID Qty: 6 RF: 0 nitrofurantoin monohyd/m-cryst [Macrobid] 100 mg capsule 100 mg PO Q12H 5 Days Qty: 10 RF: 0 ferrous sulfate [iron] 325 mg (65 mg iron) Tablet 325 mg PO DAILY RF: 0 Multiple Vitamin, Womens Tablet 1 tab PO DAILY RF: 0 albuterol sulfate 90 mcg/actuation HFA aerosol inhaler 2 inh INHALATION Q4H PRN (Reason: shortness of breath or wheezing) Qty: 18 RF: 0 Discharge Orders: Discharge ED (Routine); Ordered 05/17/20 Ordered By: Paris Madden Referrals: Milady Taylor MD [Primary Care Provider] - Discharge Diet: Advance as tolerated and Clear Liquid Discharge Activity: Limit activity as instructed Patient Instructions: Dysmenorrhea (ED), Asthma (ED), Acute Bronchitis (ED), Moderate and Severe Persistent Asthma (ED), Viral Syndrome (ED), Abdominal Pain (ED) Activity Restrictions/Additional Instructions: rest at home until COVID results are called to you Remain in quarantine - push fluids, Tylenol or Ibuprofen as needed for pain as directed on bottle Take antibiotics and prednisone with food to avoid stomach upset Clear liquid diet for the first 24 hours then advance as tolerated, avoid fried greasy fatty spicy foods until stomach is better and nausea resolved Return to the emergency department if you develop weakness, inability to catch her breath, difficulty breathing or chest pain No work today or tomorrow If Covid results are positive, [facility] will be contacting you with further instructions. Stand Alone Forms: Work/School Release Coding Level of Care Code ED Principal Technologist for [employer] F[employer] Exam Comprehensive
[2020-05-17] MEDS: sodium chloride 0.9% 500 ML 999 ML IV (08:51)
[2020-05-17] MEDS: ondansetron 2 mg/ML SDV 2 mL 4 MG IVP (08:51)
[2020-05-17 09:18] LABS: Basophils # 0.2 10^3/uL (0.0-0.1); Basophils % 1.4 %; Eosinophils # 2.8 10^3/uL (0.0-0.8); Eosinophils % 24.7 %; Hematocrit 43.2 % (37.0-47.0); Hemoglobin 14.2 g/dL (11.5-15.3); Lymphocytes # 2.9 10^3/uL (0.8-4.8); Lymphocytes % 25.7 %; Mean Corpuscular HGB Conc 32.9 g/dL (30.0-36.0); Mean Corpuscular Volume 94.3 fL (81-99); Mean Platelet Volume 9.9 fL (7.4-10.4); Monocytes # 0.7 10^3/uL (0.2-0.9); Neutrophils # 4.73 10^3/uL (1.8-7.7); Nucleated Red Blood Cells % 0 %; Platelet Count 286 10^3/cmm (130-400); Red Blood Count 4.58 10^6/uL (4.1-5.3); Red Cell Distribution Width 11.3 % (12.1-15.1); White Blood Count 11.3 10^3/uL (4.0-10.0)
[2020-05-17 09:19] LABS: Urine Appearance SL Hazy (CLEAR); Urine Color Amber (Yellow)
[2020-05-17 09:20] LABS: Add Urine Microscopic? YES; Bacteria Urine 1+ /hpf; Bilirubin Urine Neg (Negative); Blood Urine 3+ (Negative); Glucose Urine UA Norm (Normal); Ketones Urine 1+ (Negative); Leukocyte Esterase Urine Negative (Negative); Nitrate Urine Negative (Negative); Protein Urine Neg (Negative); RBC Urine >100 /hpf (0-2); Squamous Epithelial Cell Urine 0-4 /hpf (0-5); Urobilinogen Urine 1 mg/dL (Negative); WBC Urine 0-4 /hpf (0-5); pH Urine 5 (5-7)
[2020-05-17 09:21] LABS: Add Urine Culture? Yes
[2020-05-17 09:21] LABS: HCG, Serum Qual Negative (Negative)
[2020-05-17 09:32] LABS: Alanine Aminotransferase 13 U/L (0-33); Albumin Level 4.2 g/dL (3.5-5.2); Alkaline Phosphatase 51 IU/L (35-105); Anion Gap 12.2 (5-19); Aspartate Amino Transferase 13 U/L (0-32); Blood Urea Nitrogen 8 mg/dL (6-20); Calcium 8.8 mg/dL (8.5-10.5); Carbon Dioxide 26 mmol/L (22-29); Chloride 105 mmol/L (98-107); Glomerular Filtration Rate 126.2 mL/min (90-130); Glucose 98 mg/dL (65-115); Osmolality Calculated 286 mOsm/kg (285-295); Potassium 4.2 mmol/L (3.5-5.1); Sodium 139 mmol/L (136-145); Total Bilirubin 0.5 mg/dL (0.15-1.2); Total Protein 7.2 g/dL (6.6-8.7)
[2020-05-17] MEDS: ketorolac 30 mg/mL INJ 15 MG IVP (10:05)
[2020-05-17 10:11] VITALS: BP 138/77; PULSE 77; RESP 16; O2SAT 97
--- NOTE | 2020-05-17 11:58 | DCPLANNER ---
Addendum entered by Divya Garcia 05/17/20 12:02: Patient returned continuous pillowcase cutter phone call, patient stated that she does not have insurance at this time, transplant case manager will mail patient both of the financial aid advisor applications for the hospital to fill out and turn in. global sales manager will put business card in with the applications, so when patient needs to get established with someone, that she can call transplant case manager to get something scheduled for patient. Original Note: global sales manager had message to speak with patient about getting established with a primary care physician. global sales manager called phone number [phone], was unable to speak with patient and no voicemail box set up.
[2020-05-18 11:36] LABS: Coronavirus Test Green County DETECTED
== END 2020-05-17 10:11 | disposition home or self-care (01) ==
PROVIDERS: Emergency Provider Nurse Practitioner Family; PCP Family Medicine
DX: U07.1 COVID-19 (principal); J40 Bronchitis, not specified as acute or chronic; N94.6 Dysmenorrhea, unspecified; J45.31 Mild persistent asthma with (acute) exacerbation
CPT/HCPCS: 12345; 71045; 80053; 81001; 84703; 85025; 87086; 87635; 96374; 96375; 99282; 99283; J1885; J2405; J7040

== ENCOUNTER 2020-06-28 10:15 | Emergency (ER) | payer SELFPAY ==
--- NOTE | 2020-06-28 10:18 | W.ED.GENADLT ---
HPI - General Adult General: Chief complaint: General Medical Stated complaint: N/V, Sore throat Time Seen by Provider: 06/28/20 10:16 Source: patient Mode of arrival: ambulatory Limitations: no limitations History of Present Illness: HPI narrative: Patient is a 20-year-old female who presents to ED today with a complaint of shortness of breath and nausea and vomiting. Patient tells me she has had shortness of breath ever since her COVID infection on 05/17/2020. Patient does have a history of asthma in which she treats with albuterol as needed. She states last night she began developing nausea and vomiting and states she vomited several times yesterday. She does not describe any bilious or bloody emesis. She has had multiple episodes of dry heaving this morning. She is not complaining of abdominal pain. She has had normal bowel movements. She denies any urinary complaints. She has not been running fevers. Onset (ago): day(s) Relieving factors: none Exacerbating factors: other (eating) Associated symptoms: Reports dyspnea, nausea and vomiting; Deny chest pain, headache(s), malaise, rash, palpitations or syncope Treatments prior to arrival: none Review of Systems Const: Denies: fever(s), chills, body aches, fatigue or malaise Eyes: Denies: change in vision, blurry vision or photophobia ENMT: Denies: throat pain or odynophagia Card: Denies: chest pain, palpitations, irregular heart rhythm, edema, swelling of feet/ankles, lightheadedness, syncope, pre-syncope, orthopnea or leg pain with exertion Resp: Reports: dyspnea and non-productive cough; Denies: productive cough, pain on inspiration, hemoptysis or chest congestion GI: Reports: nausea and vomiting; Denies: abdominal pain, diarrhea, change in bowel habits or change in stool character : Denies: flank pain, difficulty voiding, dysuria, urinary frequency, urinary urgency, vaginal odor, vaginal discharge or pelvic pain Musc: Denies: neck pain or back pain Skin/Breast: Denies: rash Neuro: Denies: headache(s), numbness in extremities, weakness in extremities or sensory changes PFS ED PFSH: Medical History (Updated 06/28/20 @ 11:18 by MEGAN Ortiz) Asthma Social History Smoking and tobacco status: never smoked Alcohol intake: never Female Reproductive History: Date of last menstrual period: 05/17/20 Physical Exam Const: COMMON NORMALS: no acute distress, average body habitus, patient oriented x3, no limitations, healthy appearing, alert and well nourished GENERAL APPEARANCE: cooperative ORIENTATION/CONSCIOUSNESS: Yes awake, Yes oriented to person, Yes oriented to place and Yes oriented to time HENMT: COMMON NORMALS: normocephalic, atraumatic, hearing grossly normal bilaterally, external ears normal, EAC's normal, TM's normal bilaterally, Normal external nose present, Normal nasal mucous membranes and turbinates present, moist oral mucous membranes and oropharynx normal HEAD & SCALP: normal to inspection, normocephalic and atraumatic FACE & SINUS: normal facial exam and sinuses nontender NOSE: Normal external nose present and Normal nasal mucous membranes and turbinates present EXTERNAL EAR: Yes external ears normal EXTERNAL AUDITORY CANAL: EAC's normal TYMPANIC MEMBRANE: TM's normal bilaterally Neck/C-Spine: COMMON NORMALS: full ROM, no lymphadenopathy and no meningeal signs Resp: COMMON NORMALS: normal respiratory effort and clear to auscultation bilaterally AUSCULTATION: clear to auscultation bilaterally Cardio: COMMON NORMALS: regular rate and regular rhythm RATE: regular rate RHYTHM: regular rhythm GI: COMMON NORMALS: Normal to inspection, nondistended, normoactive bowel sounds present, Soft to palpation, non-tender, No hepatosplenomegaly present and no masses PALPATION: Yes Soft to palpation and Yes No hepatosplenomegaly present : COMMON NORMALS: Yes no CVA tenderness BLADDER/KIDNEY EXAM: Yes no CVA tenderness Back/Pelvis: COMMON NORMALS: no CVA tenderness Extremity: GENERAL: Yes normal exam except as noted Neuro: COMMON NORMALS: patient oriented x3 SENSORIUM/ORIENTATION: Yes alert, Yes oriented to person, Yes oriented to place and Yes oriented to time MENINGEAL SIGNS: Yes no meningeal signs Skin: COMMON NORMALS: no rashes or lesions noted GENERAL SKIN EXAM: no rashes or lesions noted Course Vital Signs: Vital signs: Vital Signs Temperature 97.7 F 06/28/20 10:19 Pulse Rate 91 06/28/20 10:19 Respiratory Rate 18 06/28/20 10:19 Blood Pressure 132/83 06/28/20 10:19 Pulse Oximetry 97 06/28/20 10:30 MDM - General Adult MDM Narrative: Medical decision making narrative: Patient is in no acute distress. Her vital signs are perfect. CXR is normal. Labs today are non-concerning. negative. Wells score of 0. I do not feel any further labs or imaging is warranted on her visit today. Spoke to CM and she will work on getting her set up with a PCP. Return to ED precautions given. Lab Data: Labs: Lab Results 06/28/20 06/28/20 06/28/20 Range/Units 10:41 10:41 10:41 WBC 14.0 H (4.0-10.0) 10^3/ uL RBC 4.64 (4.1-5.3) 10^6/u L Hgb 14.5 (11.5-15.3) g/dL Hct 42.8 (37.0-47.0) % MCV 92.2 (81-99) fL MCH 31.3 (28.0-34.0) pg MCHC 33.9 (30.0-36.0) g/dL RDW 11.5 L (12.1-15.1) % Plt Count 254 (130-400) 10^3/c mm MPV 9.5 (7.4-10.4) fL Neut % (Auto) 58.7 % Lymph % (Auto) 15.4 % [place] % (Auto) 5.8 % Eos % (Auto) 19.1 % Baso % (Auto) 0.8 % Neut # (Auto) 8.20 H (1.8-7.7) 10^3/u L Lymph # (Auto) 2.2 (0.8-4.8) 10^3/u L [place] # (Auto) 0.8 (0.2-0.9) 10^3/u L Eos # (Auto) 2.7 H (0.0-0.8) 10^3/u L Baso # (Auto) 0.1 (0.0-0.1) 10^3/u L Nucleated RBC % (a uto) 0 % Nucleated RBCs # 0.0 /100WBC Sodium 139 (136-145) mmol/L Potassium 4.2 (3.5-5.1) mmol/L Chloride 104 (98-107) mmol/L Carbon Dioxide 25 (22-29) mmol/L Anion Gap 14.2 (5-19) BUN 10 (6-20) mg/dL Creatinine 0.5 (0.5-0.9) mg/dL GFR Calculation 155.7 H (90-130) mL/min Glucose 91 (65-115) mg/dL Calculated Osmolal ity 287 (285-295) mOsm/k g Calcium 8.8 (8.5-10.5) mg/dL Total Bilirubin 0.5 (0.15-1.2) mg/dL AST 12 (0-32) U/L ALT 12 (0-33) U/L Alkaline Phosphata se 48 (35-105) IU/L Total Protein 7.4 (6.6-8.7) g/dL Albumin 4.2 (3.5-5.2) g/dL Globulin 3.2 (1.3-4.6) g/dL HCG, Qual Negative (Negative) Imaging Data^: CXR: Radiologist's impression: [address] [address] XRay Report Signed Patient: Jennifer Hong Unit #: [id number] : 2000 Age/Sex: 20 / F ADM Date: 06/28/20 Loc: ER Room/Bed: Attending Dr: Ordering Provider/Ordering MD: Jacklyn Johnson Date of Service: 06/28/20 Procedure(s): XR chest 1V portable [id number] Accession Number(s): [id number] Report Number: [id number] WS: [id number] Portable AP upright chest, 06/28/2020 Clinical Data: SOB Comparison: Portable chest, 05/17/2020. Findings: No nodules, masses or effusions are seen. The heart is normal. The pulmonary vascularity is not increased. No pneumonia or pneumothorax is seen. XR/XR chest 1V portable [id number] Impression: Negative chest. Dictated By: Lainey Jean MD Signed By: Lainey Jean MD Signed Date/Time: 06/28/20 1043 DD/ 1042 Discharge Plan Discharge Patient Disposition: Home Clinical Impression: Asthma Qualifiers: Asthma severity: mild Asthma persistence: intermittent Asthma complication type: uncomplicated Qualified Code(s): J45.20 - Mild intermittent asthma, uncomplicated Nausea & vomiting Qualifiers: Vomiting type: unspecified Vomiting Intractability: non-intractable Qualified Code(s): R11.2 - Nausea with vomiting, unspecified Condition: Stable Prescriptions: New promethazine 25 mg tablet 25 mg PO TID PRN (Reason: nausea and vomiting) Qty: 14 RF: 0 Continued albuterol sulfate 90 mcg/actuation HFA aerosol inhaler 2 inh INHALATION Q4H PRN (Reason: shortness of breath or wheezing) Qty: 18 RF: 0 No Action phenazopyridine [Pyridium] 200 mg tablet 200 mg PO TID Qty: 6 RF: 0 nitrofurantoin monohyd/m-cryst [Macrobid] 100 mg capsule 100 mg PO Q12H 5 Days Qty: 10 RF: 0 ferrous sulfate [iron] 325 mg (65 mg iron) Tablet 325 mg PO DAILY RF: 0 Multiple Vitamin, Womens Tablet 1 tab PO DAILY RF: 0 azithromycin 250 mg tablet See Rx Instructions .ROUTE .COMPLEX Qty: 6 RF: 0 Ventolin HFA 90 mcg/actuation HFA aerosol inhaler 2 puff INHALATION Q4H PRN (Reason: shortness of breath or wheezing) Qty: 18 RF: 0 Discharge Orders: Discharge ED (Routine); Ordered 06/28/20 Ordered By: Jacklyn Johnson Coding Level of Care Code ED Registered Nursing Professor for Chg Fwd Exam Comprehensive
[2020-06-28 10:19] VITALS: BP 132/83; PULSE 91; RESP 18; TEMP 36.5; O2SAT 100; BMI 24.3
--- NOTE | 2020-06-28 10:25 | XR_ITS ---
WS: [id number] Portable AP upright chest, 06/28/2020 Clinical Data: SOB Comparison: Portable chest, 05/17/2020. Findings: No nodules, masses or effusions are seen. The heart is normal. The pulmonary vascularity is not increased. No pneumonia or pneumothorax is seen. XR/XR chest 1V portable [id number] Impression: Negative chest.
[2020-06-28 10:30] VITALS: O2SAT 97
[2020-06-28 10:48] LABS: Basophils # 0.1 10^3/uL (0.0-0.1); Basophils % 0.8 %; Eosinophils # 2.7 10^3/uL (0.0-0.8); Eosinophils % 19.1 %; Hematocrit 42.8 % (37.0-47.0); Hemoglobin 14.5 g/dL (11.5-15.3); Lymphocytes # 2.2 10^3/uL (0.8-4.8); Lymphocytes % 15.4 %; Mean Corpuscular HGB Conc 33.9 g/dL (30.0-36.0); Mean Corpuscular Hemoglobin 31.3 pg (28.0-34.0); Mean Corpuscular Volume 92.2 fL (81-99); Mean Platelet Volume 9.5 fL (7.4-10.4); Monocytes # 0.8 10^3/uL (0.2-0.9); Monocytes % 5.8 %; Neutrophils % 58.7 %; Nucleated Red Blood Cells % 0 %; Platelet Count 254 10^3/cmm (130-400); Red Blood Count 4.64 10^6/uL (4.1-5.3); Red Cell Distribution Width 11.5 % (12.1-15.1)
[2020-06-28 11:07] LABS: HCG, Serum Qual Negative (Negative)
[2020-06-28 11:12] LABS: Alanine Aminotransferase 12 U/L (0-33); Albumin Level 4.2 g/dL (3.5-5.2); Alkaline Phosphatase 48 IU/L (35-105); Anion Gap 14.2 (5-19); Aspartate Amino Transferase 12 U/L (0-32); Blood Urea Nitrogen 10 mg/dL (6-20); Calcium 8.8 mg/dL (8.5-10.5); Carbon Dioxide 25 mmol/L (22-29); Chloride 104 mmol/L (98-107); Globulin 3.2 g/dL (1.3-4.6); Glomerular Filtration Rate 155.7 mL/min (90-130); Glucose 91 mg/dL (65-115); Osmolality Calculated 287 mOsm/kg (285-295); Potassium 4.2 mmol/L (3.5-5.1); Sodium 139 mmol/L (136-145); Total Bilirubin 0.5 mg/dL (0.15-1.2); Total Protein 7.4 g/dL (6.6-8.7)
[2020-06-28 11:25] VITALS: BP 112/75; PULSE 81; O2SAT 97
[2020-06-28] MEDS: promethazine 25 mg/mL SDV 1 mL IM (11:28)
== END 2020-06-28 11:25 | disposition home or self-care (01) ==
PROVIDERS: Emergency Provider Physician Assistant
DX: J45.20 Mild intermittent asthma, uncomplicated (principal); R11.2 Nausea with vomiting, unspecified
CPT/HCPCS: 12345; 36415; 71045; 80053; 84703; 85025; 96372; 99281; 99283; J2550

== ENCOUNTER 2020-08-10 10:28 | Emergency (ER) | payer SELFPAY ==
[2020-08-10 10:41] VITALS: BP 127/64; PULSE 81; RESP 16; TEMP 36.4; O2SAT 97; BMI 25.0
--- NOTE | 2020-08-10 10:50 | ED_ITS ---
HPI - Headache General: Chief Complaint: Headache Stated Complaint: headache Time Seen by Provider: 08/10/20 10:40 Source: patient Mode of arrival: ambulatory Limitations: no limitations History of Present Illness: HPI Narrative: Patient is a 20-year-old female who presents to ED today for evaluation of a migraine headache. Patient tells me she has had a history of migraine headaches for a few years now. She states that her headaches are always centered behind her right eye. She states headaches are often accompanied by blurry vision. She has had 2 previous episodes where she has lost complete vision of her right eye for approximately 30 minutes. She states she will be able to take Tylenol and states her vision returns to normal when her headache goes away. She complains of right peripheral vision loss currently. Patient also complains of some nausea and vomiting. She has not seen a neurologist for her headaches previously. She is otherwise healthy. MD elicited complaint: headache and migraine Pertinent past history: migraines Onset (ago): day(s) Onset description: gradually Location: right and retro-orbital Severity: moderate Pain scale (0-10): 6 Exacerbating factors: light and noise Relieving factors: other (tylenol) Context: occurred at rest Associated symptoms: Reports nausea and vomiting; Deny chest pain, confusion, fever(s), lightheadedness, malaise, rash or syncope Review of Systems Const: Denies: fever(s), chills, body aches, fatigue or malaise Eyes: Reports: change in vision, blind spots (currently complains of right peripheral vision loss) and photophobia; Denies: blurry vision, floaters or seeing flashes ENMT: Denies: odynophagia Card: Denies: chest pain, palpitations, irregular heart rhythm, l ightheadedness, syncope or dyspnea on exertion Resp: Denies: dyspnea, productive cough or pain on inspiration GI: Reports: nausea and vomiting; Denies: abdominal pain or change in stool character : Denies: flank pain or dysuria Musc: Denies: neck pain, back pain or joint pain Skin/Breast: Denies: rash Neuro: Reports: headache(s) and dizziness; Denies: numbness in extremities, weakness in extremities, sensory changes, lack of coordination, difficulty walking, frequent falls, vertigo, confusion, behavioral changes or Slurred speech present [facility] ED PFSH: Medical History (Updated 08/10/20 @ 12:48 by MEGAN Ortiz) Asthma Surgical History (Updated 07/24/20 @ 19:24 by Ivan Graf MD) H/O tympanostomy (~2001) S/P tonsillectomy (~2004) Age 5[address] Performed [address] Beckford at [facility] Family History (Updated 07/24/20 @ 19:16 by Ivan Graf MD) Mother Diabetes Hyperlipidemia Hypertension Stroke CAD (coronary artery disease) Social History (Updated 07/24/20 @ 19:16 by Ivan Graf MD) Smoking and tobacco status: never smoked Alcohol intake: never Female Reproductive History: Date of last menstrual period: 06/16/20 Physical Exam Const: COMMON NORMALS: average body habitus, patient oriented x3, no limitations, healthy appearing, alert and well nourished GENERAL APPEARANCE: cooperative ORIENTATION/CONSCIOUSNESS: Yes awake, Yes oriented to person, Yes oriented to place and Yes oriented to time OTHER: nausea-dry heaving in room HENMT: COMMON NORMALS: normocephalic, atraumatic, hearing grossly normal bilaterally, external ears normal, EAC's normal and TM's normal bilaterally HEAD & SCALP: normal to inspection, normocephalic and atraumatic FACE & SINUS: normal facial exam and sinuses nontender EXTERNAL EAR: Yes external ears normal EXTERNAL AUDITORY CANAL: EAC's normal TYMPANIC MEMBRANE: TM's normal bilaterally Eye: COMMON NORMALS: Equal, round and reactive pupils present, EOMs intact bilaterally and conjunctivae normal GENERAL EYE: appearance normal, both eyes and all related structures and normal light reflex VISUAL ACUITY: Yes acuity normal ALIGNMENT: Yes alignment normal PERIORBITAL: periorbital findings normal CONJUNCTIVA: Yes conjunctivae normal SCLERA: sclerae normal CORNEA: Yes corneas normal PUPIL: Yes Equal, round and reactive pupils present DIRECT OPHTHALMOSCOPY: Yes normal light reflex Neck/C-Spine: COMMON NORMALS: full ROM, no lymphadenopathy, supple and no meningeal signs Chest: COMMONS NORMALS: normal inspection of the chest Resp: COMMON NORMALS: normal respiratory effort and clear to auscultation bilaterally AUSCULTATION: clear to auscultation bilaterally Cardio: COMMON NORMALS: regular rate and regular rhythm RATE: regular rate RHYTHM: regular rhythm GI: COMMON NORMALS: Normal to inspection, nondistended, normoactive bowel sounds present, Soft to palpation, non-tender, No hepatosplenomegaly present and no masses PALPATION: Yes Soft to palpation and Yes No hepatosplenomegaly present : COMMON NORMALS: Yes no CVA tenderness BLADDER/KIDNEY EXAM: Yes no CVA tenderness Back/Pelvis: COMMON NORMALS: no CVA tenderness and thoracic and lumbar spine normal to inspection Extremity: COMMON NORMALS: normal to inspection Neuro: SRINIVAS COMA SCALE: document GCS findings Srinivas coma scale eye opening: Spontaneous Srinivas coma scale verbal response: Orientated [place] coma scale motor response: Obey commands [place] coma scale total score: 15 COMMON NORMALS: patient oriented x3, CN's II-XII intact bilaterally, moves all extremities, no focal motor deficits and gait normal SENSORIUM/ORIENTATION: Yes alert, Yes oriented to person, Yes oriented to place and Yes oriented to time MENINGEAL SIGNS: Yes no meningeal signs Skin: COMMON NORMALS: no rashes or lesions noted GENERAL SKIN EXAM: no rashes or lesions noted Course Vital Signs: Vital signs: Vital Signs Temperature 97.5 F L 08/10/20 10:41 Pulse Rate 58 L 08/10/20 12:10 Respiratory Rate 17 08/10/20 12:10 Blood Pressure 127/71 08/10/20 12:10 Pulse Oximetry 100 08/10/20 12:10 MDM - Headache MDM Narrative: Medical decision making narrative: Patient reports her headache is now a 3/10. She states her right peripheral vision loss has subsided. CT imaging is negative. She has no other neurological findings. Symptoms sound suspicious for an ocular migraine. We will have patient follow-up with Dr. Grande for further evaluation and treatment options. Imaging Data^: CT Head: Radiologist's impression: [address] [address] [address] Scan Report Signed Patient: Jennifer Hong Unit #: [id number] : 2000 Age/Sex: 20 / F ADM Date: 08/10/20 Loc: ER Room/Bed: Attending Dr: Ordering Provider/Ordering MD: Jacklyn Johnson Date of Service: 08/10/20 Procedure(s): CT head wo con* [id number] Accession Number(s): [id number] Report Number: [id number] WS: [id number] CT HEAD NONCONTRAST HISTORY: ARREOLA; visual changes TECHNIQUE: Contiguous axial imaging performed through the brain in 2.5 mm i maging. Bone and soft tissue windows. Sagittal and coronal reformats reviewed. All CT scans at [facility] use at least one of these dose optimization techniques: automated exposure control; mA and/or kV adjustment per patient size (includes targeted exams where dose is matched to clinical indication); or iterative reconstruction. DLP: 781.35 mGy.cm COMPARISON: 01/30/2020 No acute intracranial hemorrhage, midline shift or mass effect. No atrophy or prior infarcts or herniation. Ventricles: Normal size with no hydrocephalus. Paranasal sinuses: As visualized are clear. Mastoid air cells: Well pneumatized. Calvarium and scalp: Skull is intact with no soft tissue edema or swelling. CT/CT head wo con* [id number] IMPRESSION: Negative head CT. Dictated By: Kandace Billingsley DO Signed By: Kandace Billingsley DO Signed Date/Time: 08/10/20 1202 DD/ 1200 Discharge Plan Discharge Patient Disposition: Home Clinical Impression: Ocular migraine Condition: Stable Prescriptions: No Action Xulane 150-35 mcg/24 hr patch weekly 1 patch transdermal Q7D Qty: 4 RF: 12 ferrous sulfate [iron] 325 mg (65 mg iron) Tablet 325 mg PO DAILY RF: 0 Multiple Vitamin, Womens Tablet 1 tab PO DAILY RF: 0 albuterol sulfate 90 mcg/actuation HFA aerosol inhaler 2 inh INHALATION Q4H PRN (Reason: shortness of breath or wheezing) Qty: 18 RF: 0 Discharge Orders: Discharge ED (Routine); Ordered 08/10/20 Ordered By: Jacklyn Johnson Referrals: Bonnie Grande MD [Physician] - Patient Instructions: Headache - Migraine (Adult), Ocular Migraine (ED) Activity Restrictions/Additional Instructions: Case management should contact you in the next few days to try and set you up with an appointment with a neurologist/Dr. Grande so she can further evaluate your migraine headaches and offer treatment options. Stand Alone Forms: Work/School Release Coding Level of Care Code ED Liquid Flavor Compounder for Chg Fwd Exam Comprehensive
[2020-08-10 10:52] VITALS: PULSE 73; RESP 16; O2SAT 98
--- NOTE | 2020-08-10 11:21 | CT_ITS ---
WS: [id number] CT HEAD NONCONTRAST HISTORY: ARREOLA; visual changes TECHNIQUE: Contiguous axial imaging performed through the brain in 2.5 mm imaging. Bone and soft tiss ue windows. Sagittal and coronal reformats reviewed. All CT scans at [facility] use at ast one of these dose optimization techniques: automated exposure control; mA and/or kV adjustment pe r patient size (includes targeted exams where dose is matched to clinical indication); or iterative r econstruction. DLP: 781.35 mGy.cm COMPARISON: 01/30/2020 No acute intracranial hemorrhage, midline shift or mass effect. No atrophy or prior infarcts or herniation. Ventricles: Normal size with no hydrocephalus. Paranasal sinuses: As visualized are clear. Mastoid air cells: Well pneumatized. Calvarium and scalp: Skull is intact with no soft tissue edema or swelling. CT/CT head wo con* [id number] IMPRESSION: Negative head CT.
[2020-08-10] MEDS: sodium chloride 0.9% 1,000 ML 999 ML IV (11:26)
[2020-08-10] MEDS: ondansetron 2 mg/ML SDV 2 mL 4 MG IVP (11:27)
[2020-08-10] MEDS: diphenhydrAMINE 50 mg/mL SDV 1mL 25 MG IVP (11:28)
[2020-08-10] MEDS: ketorolac 60 mg/2 mL INJ 30 MG IVP (11:29)
[2020-08-10] MEDS: dexamethasone 10 mg/mL INJ 6 MG IV (11:30)
[2020-08-10 11:33] VITALS: BP 127/64; PULSE 89; RESP 17; O2SAT 100
[2020-08-10 12:10] VITALS: BP 127/71; PULSE 58; RESP 17; O2SAT 100
== END 2020-08-10 13:15 | disposition home or self-care (01) ==
PROVIDERS: Emergency Provider Physician Assistant
DX: G43.809 Other migraine, not intractable, without status migrainosus (principal)
CPT/HCPCS: 70450; 96374; 96375; 99283; J1100; J1200; J1885; J2405; J7030

== ENCOUNTER → 2020-09-18 12:26 | Outpatient (BNVA) | payer SELFPAY | PROVIDERS: Visit Provider Specialist | DX: G43.711 Chronic migraine without aura, intractable, with status migrainosus (principal); R55 Syncope and collapse; R00.2 Palpitations | CPT/HCPCS: 99204 ==

== ENCOUNTER → 2020-10-04 12:41 | Outpatient (BNVA) | payer SELFPAY | PROVIDERS: Visit Provider Specialist | DX: G40.909 Epilepsy, unspecified, not intractable, without status epilepticus (principal) | CPT/HCPCS: 95816 ==

== ENCOUNTER → 2020-10-09 10:14 | Outpatient (BNVA) | payer SELFPAY | PROVIDERS: Visit Provider Obstetrics & Gynecology | DX: Z01.419 Encounter for gynecological examination (general) (routine) without abnormal findings (principal); Z11.3 Encounter for screening for infections with a predominantly sexual mode of transmission | CPT/HCPCS: 87491; 87591; 88175 ==

== ENCOUNTER 2020-10-10 13:03 | Emergency (ER) | payer SELFPAY ==
[2020-10-10 13:40] VITALS: BP 134/73; PULSE 87; RESP 18; TEMP 36.6; O2SAT 97; BMI 26.2
[2020-10-10 13:47] VITALS: BP 121/78; PULSE 95; RESP 18; O2SAT 95
--- NOTE | 2020-10-10 14:23 | XR_ITS ---
WS: [id number] Exam: XR chest 1V portable [id number] Date/Time of Exam: 10/10/2020 2:24 PM Reason For Exam: Cough Comparison 06/28/2020. Findings: The lungs are clear and fully expanded. Costophrenic angles are sharp. No infiltrates. Bronchovascula r relief appears normal. Cardiac silhouette is unremarkable. Bony elements are intact. XR/XR chest 1V portable [id number] IMPRESSION: Unremarkable chest radiograph.
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
--- NOTE | 2020-10-10 14:23 | XR_ITS ---
WS: [id number] Exam: [place] [id number] Date/Time of Exam: 10/10/2020 2:24 PM Reason For Exam: injury Findings: No fractures or bone anomalies are present. The clavicle is in adequate alignment. XR/[place] [id number] IMPRESSION: Negative right clavicle.
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
[2020-10-10 14:47] VITALS: BP 121/78; PULSE 101; RESP 18; O2SAT 97
[2020-10-10 15:28] VITALS: BP 129/75; PULSE 100; RESP 18; O2SAT 96
--- NOTE | 2020-10-11 15:53 | DCPLANNER ---
military exchange wireless manager had message to schedule a follow up appointment for patient with ortho. military exchange wireless manager called the ortho clinic, spoke with Talia, gave clinic patients information. military exchange wireless manager was told that patients information would be printed and reviewed. Clinic will call patient with appointment information.
--- NOTE | 2020-10-12 07:49 | DCPLANNER ---
Patient has a follow up appointment scheduled for Sunday, October 18, 2020 at 10:[address] Cruz at [facility]. Clinic will call patient with appointment information.
--- NOTE | 2020-12-08 15:16 | DCPLANNER ---
Patient had a follow up appointment scheduled for 10.12.20 at 10:[address] Cruz - patient did attend appointment.
== END 2020-10-10 15:31 | disposition home or self-care (01) ==
PROVIDERS: Emergency Provider Emergency Medicine
DX: S43.084A Other dislocation of right shoulder joint, initial encounter (principal); X58.XXXA Exposure to other specified factors, initial encounter; W16.712A Jumping or diving from boat striking water surface causing other injury, initial encounter
CPT/HCPCS: 29240; 71045; 73000; 73030; 99283

== ENCOUNTER 2020-10-18 07:50 | Outpatient (CLI) | payer SELFPAY ==
--- NOTE | 2020-10-18 08:00 | USCV_ITS ---
Jennifer Hong Age: 20 Gender: F : 2000 Exam Date: 10/18/2020 08:31 Ordering Phys: Bonnie Grande MD Technologist: NOLBERTO GARCIA Exam Location: [facility] – [place] Indication: SYNCOPE WITH PALPATATIONS AND HEADACHE BP: / HR: 71 Rhythm: Sinus Technical Quality: Adequate MEASUREMENTS (Male / Female) Normal Values 2D ECHO LV Diastolic Diameter PLAX 4.1 cm 4.2 - 5.9 / 3.9 - 5.3 cm LV Systolic Diameter PLAX 2.8 cm LV Chamber Size 4.1 cm IVS Diastolic Thickness 0.8 cm 0.6 - 1.0 / 0.6 - 0.9 cm IVS Systolic Thickness 1.1 cm LVPW Diastolic Thickness 0.9 cm 0.6 - 1.0 / 0.6 - 0.9 cm LVPW Systolic Thickness 1.4 cm RV Chamber Size 2.8 cm LVOT Diameter 2.0 cm LV Ejection Fraction 2D Teich 61.4 % LV Ejection Fraction MOD 2C 52.2 % LV Ejection Fraction 2C AL 54.8 % LA Diameter 2.1 cm LA Width 2.6 cm LA Height 3.4 cm RA Width 2.9 cm RA Height 3.9 cm Aorta at Sinotubular Diameter 3.0 cm M-MODE LV Diastolic Diameter MM 4.3 cm 4.2 - 5.9 / 3.9 - 5.3 cm LV Systolic Diameter MM 2.9 cm LV Ejection Fraction MM Teich 60.7 % IVS Diastolic Thickness MM 0.9 cm 0.6 - 1.0 / 0.6 - 0.9 cm IVS Systolic Thickness MM 1.3 cm LVPW Diastolic Thickness MM 1.0 cm 0.6 - 1.0 / 0.6 - 0.9 cm LVPW Systolic Thickness MM 1.5 cm Aortic Annulus Diameter 3.1 cm LA Ao Ratio MM 0.8 MV E Point Septal Separation 0.4 cm DOPPLER AV Peak Velocity 124.0 cm/s LVOT Peak Velocity 78.0 cm/s AV Area Cont Eq vti 2.1 cm squared AV Area Cont Eq pk 2.0 cm squared MV Area PHT 3.0 cm squared Mitral E to A Ratio 1.9 MV E' Velocity 48.0 cm/s Mitral E to MV E' Ratio 5.0 Mitral E to LV E' Lateral Ratio 4.7 Mitral E to LV E' Septal Ratio 5.2 TR Peak Velocity 125.6 cm/s TR Peak Gradient 6.3 mmHg TR Mean Velocity 91.8 cm/s TR Mean Gradient 3.8 mmHg TR Velocity Time Integral 30.2 cm TV Peak E Velocity 86.0 cm/s Right Atrial Pressure 3.0 mmHg Pulmonary Artery Systolic Pressu 9.3 mmHg PV Peak Velocity 61.0 cm/s RV Acceleration Time 0.1 s RV Ejection Time 0.3 s RV AcT/ET 0.4 FINDINGS Left Ventricle Technically limited quality study because of poor visualization of cardiac structures. Normal left ventricular size. Grossly LV systolic function is normal. Regional wall motion abnormalities can not be asessed because of poor ultrasonic windows and limited visualization. Normal diastolic function Right Ventricle The right ventricle is normal in size and function. Right Atrium The right atrium is normal in size. Left Atrium The left atrium is normal in size. Mitral Valve Structurally normal mitral valve without significant stenosis or prolapse. There is no mitral regurgitation. Aortic Valve Grossly normal without stenosis. There is mild aortic regurgitation. Tricuspid Valve Structurally normal tricuspid valve without significant stenosis or regurgitation. Insufficient TR jet to calculate RVSP Pulmonic Valve Structurally normal pulmonic valve without significant stenosis. There is no pulmonic regurgitation. Pericardium Normal pericardium without effusion. Aorta Normal ascending aorta dimension. CONCLUSIONS LV systolic function is grossly normal. Regional wall motion abnormalities can not be asessed because of poor ultrasonic windows and limited visualization. Normal diastolic function Mild aortic regurgitation. No comparison studies are available Diony Hodgson MD (Electronically Signed) Final Date: 24 October 2020 22:44 S
== END 2020-10-18 07:51 | disposition home or self-care (01) ==
LOC: RAD 07:53
PROVIDERS: Visit Provider Specialist
DX: R00.2 Palpitations (principal); R55 Syncope and collapse; R51.9 Headache, unspecified; I35.1 Nonrheumatic aortic (valve) insufficiency
CPT/HCPCS: 93306

== ENCOUNTER → 2020-10-31 11:50 | Outpatient (BNVA) | payer SELFPAY | PROVIDERS: Visit Provider Specialist | DX: G43.709 Chronic migraine without aura, not intractable, without status migrainosus (principal) | CPT/HCPCS: 99214 ==

== ENCOUNTER 2020-11-01 09:16 | Outpatient (CLI) | payer SELFPAY ==
--- NOTE | 2020-11-01 09:30 | MR_ITS ---
WS: [id number] MRI RIGHT SHOULDER NONCONTRAST TECHNIQUE: Sagittal T2, coronal T1, T2 and proton density imaging. Axial gradient PDE imaging. CLINICAL INFORMATION: M24.419 - Recurrent dislocation, unspecified shoulder COMPARISON: None. FINDINGS: Normal right AC joint. Tiny amount of subacromial/subdeltoid fluid. Slight downsloping of the acromio n. Mild narrowing of the subacromial space. Normal distal supraspinatus. Normal infraspinatus normal teres minor. Normal subscapularis. Normal biceps tendon in the bicipital groove.Normal bone marrow si gnal in the humeral head and neck. Normal intra-articular biceps tendon. Normal biceps labral anchor. T2 hyperintense lobulated ganglion cyst measuring 9 x 10 mm along the dorsal glenoid labrum measuring 9 x 10 mm. Glenoid labrum appears grossly normal. Hill-Sachs deformity with flattening of the poste rior lateral humeral head. Normal bony glenoid. Recommend correlation for history of recurrent disloc ation. MR/MR shoulder RT wo con* [id number] IMPRESSION: 1. Chronic appearing Hill-Sachs deformity consistent with recurrent dislocatio n. No acute appearing edema. 2. Bony glenoid is normal in appearance. 3. Dorsal glenoid labrum cyst measuring 9 x 10 mm. Glenoid labrum appears jaison sly intact. 4. Normal rotator cuff. 5. Normal AC joint with trace subacromial/subdeltoid fluid. 6. Normal biceps tendon and biceps labral anchor.
== END 2020-11-01 09:17 | disposition home or self-care (01) ==
LOC: RADSHAW 09:18
PROVIDERS: Visit Provider Specialist
DX: M24.411 Recurrent dislocation, right shoulder (principal)
CPT/HCPCS: 73221

== ENCOUNTER 2020-11-05 04:52 | Emergency (ER) | payer SELFPAY ==
[2020-11-05] VITALS (7 sets, daily range): BP systolic 120–128; BP diastolic 60–75; PULSE 63–84; RESP 15–18; TEMP 36.8; O2SAT 96–99; BMI 26.6
--- NOTE | 2020-11-05 05:20 | CTR_ITS ---
PROCEDURE INFORMATION: Exam: CT Abdomen And Pelvis With Contrast Exam date and time: 11/05/2020 5:20 AM Age: 20 years old Clinical indication: Abdominal pain; Additional info: R abdominal pain TECHNIQUE: Imaging protocol: Computed tomography of the abdomen and pelvis with contrast. Radiation optimization: All CT scans at this facility use at least one of these dose optimization techniques: automated exposure control; mA and/or kV adjustment per patient size (includes targeted exams where dose is matched to clinical indication); or iterative reconstruction. Contrast material: OMNI 300; Contrast volume: 95 ml; Contrast route: INTRAVENOUS (IV); COMPARISON: CT abdomen pelvis w con* [id number] 12/25/2017 3:37 PM RADIATION DOSE METRICS: Total DLP (mGy-cm): 1167.98 FINDINGS: Lungs: The lung bases are clear. No effusion Liver: There is focal fatty infiltration along the falciform ligament. Gallbladder and bile ducts: No wall thickening, pericholecystic fluid or stones. Pancreas: Normal. No ductal dilation. Spleen: Normal. No splenomegaly. Adrenal glands: Normal. No mass. Kidneys and ureters: Normal. No hydronephrosis. Stomach and bowel: Unremarkable. No obstruction. No mucosal thickening. Appendix: No evidence of appendicitis. Intraperitoneal space: Unremarkable. No free air. No significant fluid collection. Vasculature: Unremarkable. No abdominal aortic aneurysm. Lymph nodes: Unremarkable. No enlarged lymph nodes. Urinary bladder: Unremarkable as visualized. Reproductive: 3.7 x 2.5 cm right ovarian cyst. Bones/joints: Unremarkable. No acute fracture. Soft tissues: Unremarkable. CT/CT abdomen pelvis w con* [id number] IMPRESSION: 3.7 x 2.5 cm right ovarian cyst. Radiation Dose CTDIVOL = (mGy): DLP = 1167.98 (mGy-cm)
[2020-11-05 05:35] LABS: Basophils # 0.1 10^3/uL (0.0-0.1); Basophils % 0.7 %; Eosinophils # 1.7 10^3/uL (0.0-0.8); Eosinophils % 12.7 %; Hematocrit 42.2 % (37.0-47.0); Lymphocytes # 3.8 10^3/uL (0.8-4.8); Lymphocytes % 28.7 %; Mean Corpuscular HGB Conc 33.2 g/dL (30.0-36.0); Mean Corpuscular Hemoglobin 30.5 pg (28.0-34.0); Mean Corpuscular Volume 91.9 fL (81-99); Mean Platelet Volume 9.9 fL (7.4-10.4); Monocytes # 0.7 10^3/uL (0.2-0.9); Monocytes % 5.5 %; Neutrophils # 6.85 10^3/uL (1.8-7.7); Nucleated Red Blood Cells % 0 %; Platelet Count 275 10^3/cmm (130-400); Red Blood Count 4.59 10^6/uL (4.1-5.3); Red Cell Distribution Width 11.7 % (12.1-15.1); White Blood Count 13.2 10^3/uL (4.0-10.0)
--- NOTE | 2020-11-05 05:41 | W.ED.NAVMDI ---
Documented by User: Raza Modi DO 11/05/20 06:08 HPI - Nausea/Vomiting/Diarrhea General: Chief complaint: Nausea/Vomiting/Diarrhea Stated complaint: N/V 24 HRS History of Present Illness: HPI Narrative: 20-year-old female with right-sided abdominal pain and vomiting for the last 24 hours. She states that she believes she had a fever yesterday not necessarily today. She had one episode of diarrhea. No blood. No history of belly surgery. MD elicited complaint: nausea, vomiting and abdominal pain Pertinent past history: anorexia Onset (ago): hour(s) Description of vomiting: watery Associated nausea: Yes Associated abdominal pain: Yes Location of pain: RUQ and RLQ Pain consistency: constant Severity: moderate Quality: cramping and stabbing Exacerbating factors: vomiting Relieving factors: none Associated symtoms: Reports decreased urine output, dizziness, fatigue, fevers/chills and nausea; Denies anxiety, change in vision, chest pain, cough, diaphoresis, dysuria or epistaxis Review of Systems Const: Reports: fatigue; Denies: diaphoresis Eyes: Denies: change in vision ENMT: Denies: epistaxis Card: Denies: chest pain Resp: Denies: dyspnea, productive cough, non-productive cough or wheezing GI: Reports: nausea : Reports: urinary frequency; Denies: dysuria, urinary urgency or hematuria Musc: Denies: neck pain or back pain Skin/Breast: Denies: rash, pruritus or erythema Neuro: Reports: dizziness Psych: Denies: anxiety PFSH ED PFSH: Medical History Asthma Chronic migraine without aura, intractable, with status migrainosus Surgical History H/O tympanostomy (~2001) S/P tonsillectomy (~2004) Age 5[address]formed [address] Lombardo at [facility] Family History Mother Diabetes Hyperlipidemia Hypertension Stroke CAD (coronary artery disease) Social History Smoking and tobacco status: never smoked Alcohol intake: never History of recent travel: No Female Reproductive History: Date of last menstrual period: 09/16/20 Physical Exam Const: GENERAL APPEARANCE: well developed ORIENTATION/CONSCIOUSNESS: Yes oriented to person, Yes oriented to place and Yes oriented to time HENMT: COMMON NORMALS: normocephalic, external ears normal and Normal external nose present HEAD & SCALP: normocephalic FACE & SINUS: normal facial exam NOSE: Normal external nose present and No nasal discharge present EXTERNAL EAR: Yes external ears normal Eye: COMMON NORMALS: Equal, round and reactive pupils present, EOMs intact bilaterally and conjunctivae normal EYELID: eyelids normal CONJUNCTIVA: Yes conjunctivae normal PUPIL: Yes Equal, round and reactive pupils present Neck/C-Spine: GENERAL: No tracheal deviation Chest: COMMONS NORMALS: normal inspection of the chest CHEST: No tenderness Resp: COMMON NORMALS: clear to auscultation bilaterally EFFORT & INSPECTION: No tachypneic, No respiratory distress, No retractions, No uses accessory muscles and No tracheal deviation AUSCULTATION: clear to auscultation bilaterally, no rhonchi, no wheezes and lung sounds not diminished Cardio: COMMON NORMALS: regular rate and regular rhythm RATE: regular rate RHYTHM: regular rhythm HEART SOUNDS: no murmurs PERIPHERAL PULSES: radial pulses present GI: INSPECTION: No abdominal distension AUSCULTATION: No Hyperactive bowel sounds present and No Hypoactive bowel sounds present PALPATION: Yes Tenderness to palpation present (GI) Details: RLQ and Yes Guarding due to palpation present (GI) PERCUSSION: no dullness to percussion and no tympanic to percussion : BLADDER/KIDNEY EXAM: Yes CVA tenderness on the right Back/Pelvis: GENERAL BACK: Yes CVA tenderness Neuro: SENSORIUM/ORIENTATION: Yes oriented to person, Yes oriented to place and Yes oriented to time Psych: COMMON NORMALS: mental status grossly normal Skin: COMMON NORMALS: no rashes or lesions noted GENERAL SKIN EXAM: no rashes or lesions noted Course Vital Signs: Vital signs: Vital Signs Temperature 98.3 F 11/05/20 06:06 Pulse Rate 84 11/05/20 06:06 Respiratory Rate 18 11/05/20 06:06 Blood Pressure 120/60 11/05/20 06:06 Pulse Oximetry 98 11/05/20 06:06 MDM - Nausea/Vomiting/Diarrhea MDM Narrative: Medical decision making narrative: 20-year-old female with right-sided belly pain, mild leukocytosis, fever yesterday not today, and multiple episodes of vomiting. Awaiting labs and CT scan. She will be checked out to Dr. Sr at shift change. Lab Data: Labs: Lab Results 11/05/20 11/05/20 11/05/20 Range/Units 05:20 05:20 05:20 WBC 13.2 H (4.0-10.0) 10^3/ uL RBC 4.59 (4.1-5.3) 10^6/u L Hgb 14.0 (11.5-15.3) g/dL Hct 42.2 (37.0-47.0) % MCV 91.9 (81-99) fL MCH 30.5 (28.0-34.0) pg MCHC 33.2 (30.0-36.0) g/dL RDW 11.7 L (12.1-15.1) % Plt Count 275 (130-400) 10^3/c mm MPV 9.9 (7.4-10.4) fL Neut % (Auto) 52.0 % Lymph % (Auto) 28.7 % [place]ec[place] % (Auto) 5.5 % Eos % (Auto) 12.7 % Baso % (Auto) 0.7 % Neut # (Auto) 6.85 (1.8-7.7) 10^3/u L Lymph # (Auto) 3.8 (0.8-4.8) 10^3/u L [place] # (Auto) 0.7 (0.2-0.9) 10^3/u L Eos # (Auto) 1.7 H (0.0-0.8) 10^3/u L Baso # (Auto) 0.1 (0.0-0.1) 10^3/u L Nucleated RBC % (a uto) 0 % Nucleated RBCs # 0.0 /100WBC Sodium Cancelled Potassium Cancelled Chloride Cancelled Carbon Dioxide Cancelled Anion Gap Cancelled BUN Cancelled Creatinine Cancelled GFR Calculation Cancelled Glucose Cancelled Calculated Osmolal ity Cancelled Calcium Cancelled Total Bilirubin Cancelled AST Cancelled ALT Cancelled Alkaline Phosphata se Cancelled C-Reactive Protein Cancelled Total Protein Cancelled Albumin Cancelled Globulin Cancelled Lipase Cancelled HCG, Qual Negative (Negative) Urine Color (Yellow) Urine Appearance (CLEAR) Urine pH (5-7) Ur Specific Gravit y (1.005-1.030) Urine Protein (Negative) Urine Glucose (UA) (Normal) Urine Ketones (Negative) Urine Blood (Negative) Urine Nitrate (Negative) Urine Bilirubin (Negative) Urine Urobilinogen (Negative) mg/dL Ur Leukocyte Archana ase (Negative) Urine RBC (0-2) /hpf Urine WBC (0-5) /hpf Ur Squamous Epith Cells (0-5) /hpf Amorphous Sediment Urine Bacteria (NONE) /hpf 11/05/20 11/05/20 Range/Units 05:40 05:45 WBC (4.0-10.0) 10^3/ uL RBC (4.1-5.3) 10^6/u L Hgb (11.5-15.3) g/dL Hct (37.0-47.0) % MCV (81-99) fL MCH (28.0-34.0) pg MCHC (30.0-36.0) g/dL RDW (12.1-15.1) % Plt Count (130-400) 10^3/c mm MPV (7.4-10.4) fL Neut % (Auto) % Lymph % (Auto) % P[place] % (Auto) % Eos % (Auto) % Baso % (Auto) % Neut # (Auto) (1.8-7.7) 10^3/u L Lymph # (Auto) (0.8-4.8) 10^3/u L [place] # (Auto) (0.2-0.9) 10^3/u L Eos # (Auto) (0.0-0.8) 10^3/u L Baso # (Auto) (0.0-0.1) 10^3/u L Nucleated RBC % (a uto) % Nucleated RBCs # /100WBC Sodium 139 Potassium 4.1 Chloride 105 Carbon Dioxide 23 Anion Gap 15.1 BUN 13 Creatinine 0.6 GFR Calculation 126.2 Glucose 89 Calculated Osmolal ity 288 Calcium 8.4 L Total Bilirubin 0.4 AST 11 ALT 11 Alkaline Phosphata se 42 C-Reactive Protein 4.4 Total Protein 6.2 L Albumin 3.9 Globulin 2.3 Lipase 14 HCG, Qual (Negative) Urine Color Yellow (Yellow) Urine Appearance Clear (CLEAR) Urine pH 5 (5-7) Ur Specific Gravit y 1.020 (1.005-1.030) Urine Protein Neg (Negative) Urine Glucose (UA) Norm (Normal) Urine Ketones Negative (Negative) Urine Blood 3+ H (Negative) Urine Nitrate Negative (Negative) Urine Bilirubin Neg (Negative) Urine Urobilinogen 1 H (Negative) mg/dL Ur Leukocyte Archana ase Negative (Negative) Urine RBC 15-25 H (0-2) /hpf Urine WBC 0-4 H (0-5) /hpf Ur Squamous Epith Cells 10-15 H (0-5) /hpf Amorphous Sediment Not Reportable Urine Bacteria Trace (NONE) /hpf Discharge Plan Discharge Clinical Impression: Ovarian cyst Qualifiers: Laterality: right Qualified Code(s): N83.201 - Unspecified ovarian cyst, right side Condition: Stable Prescriptions: New naproxen sodium [Anaprox DS] 550 mg tablet 550 mg PO BID PRN (Reason: pain) Qty: 14 RF: 0 No Action Xulane 150-35 mcg/24 hr patch weekly 1 patch transdermal Q7D Qty: 4 RF: 12 amitriptyline 25 mg tablet 25 mg PO DAILY Qty: 30 RF: 2 Ajovy Autoinjector 225 mg/1.5 mL auto-injector 225 mg SUBCUT ONCE Qty: 1.5 RF: 5 diclofenac sodium 75 mg tablet,delayed release (DR/EC) 75 mg PO BID PRN (Reason: pain) Qty: 20 RF: 0 Multiple Vitamin, Womens Tablet 1 tab PO DAILY RF: 0 albuterol sulfate 90 mcg/actuation HFA aerosol inhaler 2 inh INHALATION Q4H PRN (Reason: shortness of breath or wheezing) Qty: 18 RF: 0 Discharge Orders: Discharge ED (Routine); Ordered 11/05/20 Ordered By: Lynette Sr Referrals: Lanre Schwarz MD [Physician] - (call for follow up gynecology for ovarian cyst) Xochitl López MD [Physician] - (follow up from ER visit for ovarian cyst) Discharge Diet: Advance as tolerated and Clear Liquid Discharge Activity: Increase activity as tolerated Patient Instructions: Ovarian Cyst (ED) Activity Restrictions/Additional Instructions: You can get naproxen sodium [id number] 550 mg twice a day this is like generic Aleve. This may help reduce the size of the cyst and/or absorb any fluid. Return if you have vomiting fevers discharge worsening of symptoms. Advance her diet as tolerated. Thank you for choosing [facility] for your healthcare needs today. Please realize this is an emergency room and that we are providing you with a medical screening exam and this may not be complete and all inclusive of all the testing and or work up that you may need to determine your ailment or severity of your illness. It is very important that you follow up as instructed or that you return to the Emergency Department should you have concerns or if your condition changes or worsens in any way. Coding Level of Care Code ED [employer] Operator for Chg Fwd Exam Comprehensive Documented by User: Lynette Sr DO 11/05/20 07:35 HPI - Nausea/Vomiting/Diarrhea General: Chief complaint: Nausea/Vomiting/Diarrhea Stated complaint: N/V 24 HRS PFSH ED PFSH: Medical History Asthma Chronic migraine without aura, intractable, with status migrainosus Surgical History H/O tympanostomy (~2001) S/P tonsillectomy (~2004) Age 5[address] Performed [address] Lombardo at [facility] Family History Mother Diabetes Hyperlipidemia Hypertension Stroke CAD (coronary artery disease) Social History Smoking and tobacco status: never smoked Alcohol intake: never History of recent travel: No Course Vital Signs: Vital signs: Vital Signs Temperature 98.3 F 11/05/20 06:06 Pulse Rate 84 11/05/20 06:06 Respiratory Rate 18 11/05/20 06:06 Blood Pressure 120/60 11/05/20 06:06 Pulse Oximetry 98 11/05/20 06:06 MDM - Nausea/Vomiting/Diarrhea MDM Narrative: Medical decision making narrative: CT results were reviewed and discussed with the patient she has a right ovarian cyst. She has not had a period in about a month she has no history of ovarian cyst discussed with her she needs to follow-up and have this monitored. Her pain was controlled we will give her some Toradol discussed with her naproxen sodium helps with ovarian cysts there is no evidence of appendicitis I do not see any indication to do an ultrasound on top of the CT scan as we were able to obtain measurements. She is comfortable and ready for discharge Lab Data: Labs: Lab Results 11/05/20 11/05/20 11/05/20 Range/Units 05:20 05:20 05:20 WBC 13.2 H (4.0-10.0) 10^3/ uL RBC 4.59 (4.1-5.3) 10^6/u L Hgb 14.0 (11.5-15.3) g/dL Hct 42.2 (37.0-47.0) % MCV 91.9 (81-99) fL MCH 30.5 (28.0-34.0) pg MCHC 33.2 (30.0-36.0) g/dL RDW 11.7 L (12.1-15.1) % Plt Count 275 (130-400) 10^3/c mm MPV 9.9 (7.4-10.4) fL Neut % (Auto) 52.0 % Lymph % (Auto) 28.7 % [place] % (Auto) 5.5 % Eos % (Auto) 12.7 % Baso % (Auto) 0.7 % Neut # (Auto) 6.85 (1.8-7.7) 10^3/u L Lymph # (Auto) 3.8 (0.8-4.8) 10^3/u L [place] # (Auto) 0.7 (0.2-0.9) 10^3/u L Eos # (Auto) 1.7 H (0.0-0.8) 10^3/u L Baso # (Auto) 0.1 (0.0-0.1) 10^3/u L Nucleated RBC % (a uto) 0 % Nucleated RBCs # 0.0 /100WBC Sodium Cancelled Potassium Cancelled Chloride Cancelled Carbon Dioxide Cancelled Anion Gap Cancelled BUN Cancelled Creatinine Cancelled GFR Calculation Cancelled Glucose Cancelled Calculated Osmolal ity Cancelled Calcium Cancelled Total Bilirubin Cancelled AST Cancelled ALT Cancelled Alkaline Phosphata se Cancelled C-Reactive Protein Cancelled Total Protein Cancelled Albumin Cancelled Globulin Cancelled Lipase Cancelled HCG, Qual Negative (Negative) Urine Color (Yellow) Urine Appearance (CLEAR) Urine pH (5-7) Ur Specific Gravit y (1.005-1.030) Urine Protein (Negative) Urine Glucose (UA) (Normal) Urine Ketones (Negative) Urine Blood (Negative) Urine Nitrate (Negative) Urine Bilirubin (Negative) Urine Urobilinogen (Negative) mg/dL Ur Leukocyte Archana ase (Negative) Urine RBC (0-2) /hpf Urine WBC (0-5) /hpf Ur Squamous Epith Cells (0-5) /hpf Amorphous Sediment Urine Bacteria (NONE) /hpf 11/05/20 11/05/20 Range/Units 05:40 05:45 WBC (4.0-10.0) 10^3/ uL RBC (4.1-5.3) 10^6/u L Hgb (11.5-15.3) g/dL Hct (37.0-47.0) % MCV (81-99) fL MCH (28.0-34.0) pg MCHC (30.0-36.0) g/dL RDW (12.1-15.1) % Plt Count (130-400) 10^3/c mm MPV (7.4-10.4) fL Neut % (Auto) % Lymph % (Auto) % [place] % (Auto) % Eos % (Auto) % Baso % (Auto) % Neut # (Auto) (1.8-7.7) 10^3/u L Lymph # (Auto) (0.8-4.8) 10^3/u L [place] # (Auto) (0.2-0.9) 10^3/u L Eos # (Auto) (0.0-0.8) 10^3/u L Baso # (Auto) (0.0-0.1) 10^3/u L Nucleated RBC % (a uto) % Nucleated RBCs # /100WBC Sodium 139 Potassium 4.1 Chloride 105 Carbon Dioxide 23 Anion Gap 15.1 BUN 13 Creatinine 0.6 GFR Calculation 126.2 Glucose 89 Calculated Osmolal ity 288 Calcium 8.4 L Total Bilirubin 0.4 AST 11 ALT 11 Alkaline Phosphata se 42 C-Reactive Protein 4.4 Total Protein 6.2 L Albumin 3.9 Globulin 2.3 Lipase 14 HCG, Qual (Negative) Urine Color Yellow (Yellow) Urine Appearance Clear (CLEAR) Urine pH 5 (5-7) Ur Specific Gravit y 1.020 (1.005-1.030) Urine Protein Neg (Negative) Urine Glucose (UA) Norm (Normal) Urine Ketones Negative (Negative) Urine Blood 3+ H (Negative) Urine Nitrate Negative (Negative) Urine Bilirubin Neg (Negative) Urine Urobilinogen 1 H (Negative) mg/dL Ur Leukocyte Archana ase Negative (Negative) Urine RBC 15-25 H (0-2) /hpf Urine WBC 0-4 H (0-5) /hpf Ur Squamous Epith Cells 10-15 H (0-5) /hpf Amorphous Sediment Not Reportable Urine Bacteria Trace (NONE) /hpf Discharge Plan Discharge Clinical Impression: Ovarian cyst Qualifiers: Laterality: right Qualified Code(s): N83.201 - Unspecified ovarian cyst, right side Condition: Stable Prescriptions: New naproxen sodium [Anaprox DS] 550 mg tablet 550 mg PO BID PRN (Reason: pain) Qty: 14 RF: 0 No Action Xulane 150-35 mcg/24 hr patch weekly 1 patch transdermal Q7D Qty: 4 RF: 12 amitriptyline 25 mg tablet 25 mg PO DAILY Qty: 30 RF: 2 Ajovy Autoinjector 225 mg/1.5 mL auto-injector 225 mg SUBCUT ONCE Qty: 1.5 RF: 5 diclofenac sodium 75 mg tablet,delayed release (DR/EC) 75 mg PO BID PRN (Reason: pain) Qty: 20 RF: 0 Multiple Vitamin, Womens Tablet 1 tab PO DAILY RF: 0 albuterol sulfate 90 mcg/actuation HFA aerosol inhaler 2 inh INHALATION Q4H PRN (Reason: shortness of breath or wheezing) Qty: 18 RF: 0 Discharge Orders: Discharge ED (Routine); Ordered 11/05/20 Ordered By: Lynette Sr Referrals: Lanre Schwarz MD [Physician] - (call for follow up gynecology for ovarian cyst) Xochitl López MD [Physician] - (follow up from ER visit for ovarian cyst) Discharge Diet: Advance as tolerated and Clear Liquid Discharge Activity: Increase activity as tolerated Patient Instructions: Ovarian Cyst (ED) Activity Restrictions/Additional Instructions: You can get naproxen sodium [id number] 550 mg twice a day this is like generic Aleve. This may help reduce the size of the cyst and/or absorb any fluid. Return if you have vomiting fevers discharge worsening of symptoms. Advance her diet as tolerated. Thank you for choosing [facility] for your healthcare needs today. Please realize this is an emergency room and that we are providing you with a medical screening exam and this may not be complete and all inclusive of all the testing and or work up that you may need to determine your ailment or severity of your illness. It is very important that you follow up as instructed or that you return to the Emergency Department should you have concerns or if your condition changes or worsens in any way. Coding Level of Care Code ED [employer] Machine Operator for Ester Fwd Exam Comprehensive
[2020-11-05 05:46] LABS: HCG, Serum Qual Negative (Negative)
[2020-11-05] MEDS: fentaNYL 50 mcg/mL INJ 2mL 75 MCG IVP (05:47)
[2020-11-05] MEDS: ondansetron 2 mg/ML SDV 2 mL 4 MG IVP (05:48)
[2020-11-05] MEDS: sodium chloride 0.9% 1,000 ML 999 ML IV (05:49)
[2020-11-05 05:50] LABS: Add Urine Microscopic? YES; Bilirubin Urine Neg (Negative); Blood Urine 3+ (Negative); Glucose Urine UA Norm (Normal); Ketones Urine Negative (Negative); Leukocyte Esterase Urine Negative (Negative); Nitrate Urine Negative (Negative); Protein Urine Neg (Negative); Urine Appearance Clear (CLEAR); Urine Color Yellow (Yellow); Urobilinogen Urine 1 mg/dL (Negative); pH Urine 5 (5-7)
[2020-11-05 05:55] LABS: Add Urine Culture? No; Bacteria Urine TRACE /hpf; RBC Urine 15-25 /hpf (0-2); WBC Urine 0-4 /hpf (0-5)
[2020-11-05] MEDS: iohexol 300 mg/mL 100 mL Btl IV (06:04)
[2020-11-05 06:13] LABS: Alanine Aminotransferase 11 U/L (0-33); Albumin Level 3.9 g/dL (3.5-5.2); Alkaline Phosphatase 42 IU/L (35-105); Anion Gap 15.1 (5-19); Aspartate Amino Transferase 11 U/L (0-32); Blood Urea Nitrogen 13 mg/dL (6-20); C Reactive Protein 4.4 mg/L (0.0-4.9); Calcium 8.4 mg/dL (8.5-10.5); Carbon Dioxide 23 mmol/L (22-29); Chloride 105 mmol/L (98-107); Globulin 2.3 g/dL (1.3-4.6); Glomerular Filtration Rate 126.2 mL/min (90-130); Glucose 89 mg/dL (65-115); Lipase 14 U/L (13-60); Osmolality Calculated 288 mOsm/kg (285-295); Potassium 4.1 mmol/L (3.5-5.1); Sodium 139 mmol/L (136-145); Total Bilirubin 0.4 mg/dL (0.15-1.2); Total Protein 6.2 g/dL (6.6-8.7)
[2020-11-05] MEDS: ketorolac 30 mg/mL INJ IVP (08:00)
== END 2020-11-05 08:32 | disposition home or self-care (01) ==
PROVIDERS: Emergency Provider Emergency Medicine
DX: N83.201 Unspecified ovarian cyst, right side (principal)
CPT/HCPCS: 74177; 80053; 81001; 83690; 84703; 85025; 86140; 96361; 96374; 96375; 99284; J1885; J2405; J3010; J7030; Q9967

== ENCOUNTER → 2020-12-01 09:31 | Outpatient (BNVA) | payer MEDICAID, SELFPAY | PROVIDERS: Visit Provider Emergency Medicine | DX: Z20.822 Contact with and (suspected) exposure to COVID-19 (principal); Z20.828 Contact with and (suspected) exposure to other viral communicable diseases | CPT/HCPCS: 87635 ==

== ENCOUNTER 2020-12-10 05:14 | Emergency (ER) | payer MEDICAID, SELFPAY ==
--- NOTE | 2020-12-10 05:18 | XRR_ITS ---
PROCEDURE INFORMATION: Exam: XR Left Knee Exam date and time: 12/10/2020 5:18 AM Age: 20 years old Clinical indication: Injury or trauma; Fall; Blunt trauma; Knee; Left TECHNIQUE: Imaging protocol: XR Left knee. Views: 3 views. COMPARISON: No relevant prior studies available. FINDINGS: Bones/joints: No acute fracture or dislocation. Soft tissues: Normal. XR/XR knee LT 3V* [id number] IMPRESSION: No acute fracture or dislocation.
[2020-12-10 05:19] VITALS: BP 123/75; PULSE 80; RESP 16; TEMP 36.4; O2SAT 98; BMI 25.8
--- NOTE | 2020-12-10 05:28 | W.ED.EXTPRO ---
HPI - Extremity Problem General: Chief complaint: Extremity Injury, Lower Stated complaint: LEFT KNEE INJURY Time Seen by Provider: 12/10/20 05:24 Source: patient Mode of arrival: ambulatory Limitations: no limitations History of Present Illness: HPI Narrative: 20-year-old female states she has had knee pain over the last 3 days. States been a sharp pain worse with walking improved with rest. States that the pain is woke up tonight and is currently a 5 out of 10. States she tore her ACL in high school and only wore a brace and never had surgery. It was in that same knee. She denies any new injury. Associated symptoms: Deny chest pain, fever(s) or rash Review of Systems Const: Denies: fever(s), chills, body aches or change in appetite Eyes: Denies: blurry vision or eye discomfort ENMT: Denies: throat pain or dental pain Card: Denies: chest pain Resp: Denies: dyspnea GI: Denies: abdominal pain, nausea, vomiting or diarrhea : Denies: dysuria Musc: Reports: joint pain Skin/Breast: Denies: rash Neuro: Denies: headache(s) Psych: Denies: depression Santy/Lymph: Denies: easy bruising All/Imm: Denies: urticaria PFSH ED PFSH: Medical History Asthma Chronic migraine without aura, intractable, with status migrainosus Surgical History H/O tympanostomy (~2001) S/P tonsillectomy (~2004) Age 5[address]formed by [address] Lombardo at [facility] Family History Mother Diabetes Hyperlipidemia Hypertension Stroke CAD (coronary artery disease) Social History Smoking and tobacco status: never smoked Alcohol intake: never History of recent travel: No Female Reproductive History: Date of last menstrual period: 09/16/20 Physical Exam Const: COMMON NORMALS: no acute distress, patient oriented x3 and healthy appearing HENMT: COMMON NORMALS: normocephalic and atraumatic HEAD & SCALP: normocephalic and atraumatic Eye: COMMON NORMALS: Equal, round and reactive pupils present and EOMs intact bilaterally PUPIL: Yes Equal, round and reactive pupils present Neck/C-Spine: COMMON NORMALS: full ROM and supple Chest: COMMONS NORMALS: normal inspection of the chest and normal palpation of entire chest wall Resp: COMMON NORMALS: normal respiratory effort, No retractions, No use of accessory muscles and clear to auscultation bilaterally AUSCULTATION: clear to auscultation bilaterally Cardio: COMMON NORMALS: regular rate, regular rhythm and No murmurs present (Cardio) RATE: regular rate RHYTHM: regular rhythm GI: COMMON NORMALS: Normal to inspection, nondistended, normoactive bowel sounds present, Soft to palpation, non-tender and no masses PALPATION: Yes Soft to palpation Extremity: COMMON NORMALS: normal to inspection and full ROM NARRATIVE EXTREMITY EXAM: Slight tenderness with palpation to the anterior knee and some pain with range of motion. Full range of motion is available. No swelling noted or warmth to touch or erythema Neuro: COMMON NORMALS: patient oriented x3, moves all extremities and no focal motor deficits Psych: COMMON NORMALS: mental status grossly normal, Normal thought process present and cooperative THOUGHT PROCESS: Normal thought process present Skin: COMMON NORMALS: no rashes or lesions noted and no wounds GENERAL SKIN EXAM: no rashes or lesions noted Course Vital Signs: Vital signs: Vital Signs Temperature 97.6 F 12/10/20 05:19 Pulse Rate 80 12/10/20 05:19 Respiratory Rate 16 12/10/20 05:19 Blood Pressure 123/75 12/10/20 05:19 Pulse Oximetry 98 12/10/20 05:19 MDM - Extremity (Nontraumatic) MDM Narrative: Medical decision making narrative: Patient presents here with knee pain to her left knee. Is likely from her previous injury and prior some inflammation. She has no signs of septic joint. She has no lower leg swelling no signs of DVT. X-ray here is normal. She is to ice and have her follow-up with orthopedics. She is return if worsening. Discharge Plan Discharge Patient Disposition: Home Clinical Impression: Knee pain, left Qualifiers: Chronicity: chronic Qualified Code(s): M25.562 - Pain in left knee Condition: Stable Prescriptions: New Naprosyn 500 mg tablet 500 mg PO BID PRN (Reason: pain) Qty: 20 RF: 0 No Action Xulane 150-35 mcg/24 hr patch weekly 1 patch transdermal Q7D Qty: 4 RF: 12 amitriptyline 25 mg tablet 25 mg PO DAILY Qty: 30 RF: 2 Ajovy Autoinjector 225 mg/1.5 mL auto-injector 225 mg SUBCUT ONCE Qty: 1.5 RF: 5 diclofenac sodium 75 mg tablet,delayed release (DR/EC) 75 mg PO BID PRN (Reason: pain) Qty: 20 RF: 0 Multiple Vitamin, Womens Tablet 1 tab PO DAILY RF: 0 albuterol sulfate 90 mcg/actuation HFA aerosol inhaler 2 inh INHALATION Q4H PRN (Reason: shortness of breath or wheezing) Qty: 18 RF: 0 Discharge Orders: Discharge ED (Routine); Ordered 12/10/20 Ordered By: Isela Eddy Referrals: Keegan Campbell DO [Physician] - 1-3 days Discharge Diet: Advance as tolerated Discharge Activity: Resume usual activity Patient Instructions: Knee Pain (ED) Coding Level of Care Code ED [employer] for Chg Fwd Exam Comprehensive
[2020-12-10] MEDS: HYDROcodone-acetaminophen 5-325 mg Tablet 1 TAB PO (05:33)
--- NOTE | 2020-12-11 10:05 | DCPLANNER ---
roll out manager had message to schedule a follow up appointment for patient with ortho for knee pain with Dr. Campbell. roll out manager called the [facility], spoke with Denisha, gave clinic patients information. roll out manager was told that patients information would be printed and reviewed. Clinic will call patient with appointment information.
--- NOTE | 2020-12-12 08:19 | DCPLANNER ---
Patient has a follow up appointment scheduled for , December 14, 2020 at 1:[address] Campbell at [facility]. Clinic will call patient with appointment information.
--- NOTE | 2021-01-05 13:22 | DCPLANNER ---
Patient had a follow up appointment scheduled for 12.14.20 with ortho - appointment was cancelled.
== END 2020-12-10 05:47 | disposition home or self-care (01) ==
PROVIDERS: Emergency Provider Emergency Medicine
DX: M25.562 Pain in left knee (principal)
CPT/HCPCS: 73562; 99283

== ENCOUNTER 2021-02-03 13:28 | Emergency (ER) | payer MEDICAID, SELFPAY ==
[2021-02-03 13:47] VITALS: BP 111/71; PULSE 82; RESP 16; TEMP 36.8; O2SAT 98; BMI 25.0
--- NOTE | 2021-02-03 14:01 | XRR_ITS ---
PROCEDURE INFORMATION: Exam: XR Left Knee Exam date and time: 02/03/2021 2:01 PM Age: 20 years old Clinical indication: Injury or trauma; Other: Dog bite; Bleeding/hemorrhage and laceration; Patella or knee; Left; Without foreign body TECHNIQUE: Imaging protocol: XR Left knee. Views: 3 views. COMPARISON: No relevant prior studies available. FINDINGS: Bones/joints: Normal. Soft tissues: There are foci of emphysema in the soft tissues along the lateral aspect of the distal femur. XR/XR knee LT 3V* [id number] IMPRESSION: There are foci of emphysema in the soft tissues along the lateral aspect of the distal femur. No evidence for acute fracture.
--- NOTE | 2021-02-03 14:01 | ED_ITS ---
HPI - Wound/Laceration General: Chief Complaint: Wound/Laceration Stated Complaint: BITE ,ANIMAL TAXONOMIST OF DOG Time Seen by Provider: 02/03/21 13:57 History of Present Illness: HPI narrative: This patient is a 20-year-old female who presents to the emergency department with complaint of a dog bite. This was a family pet pitbuhamida mix.. Family member states they have already put the dog down. Patient has 4 little puncture wounds on the lateral left knee. Full range of motion is present. No active bleeding. Will do medical evaluation treat as needed Onset (ago): hour(s) Extremity Location: Left: knee Place: home Context: accidental Associated symptoms: Reports no associated symptoms; Denies chills, fever(s), nausea or vomiting Review of Systems General: Reports: 10 or more systems reviewed and unremarkable except in HPI and below Const: Denies: fever(s), chills, body aches or fatigue Eyes: Denies: change in vision or blurry vision ENMT: Denies: throat pain, hoarseness or mouth pain Card: Denies: chest pain, palpitations, irregular heart rhythm, edema, swelling of feet/ankles or lightheadedness Resp: Denies: dyspnea, productive cough, non-productive cough, wheezing or pain on inspiration GI: Denies: abdominal pain, nausea or vomiting : Denies: flank pain, difficulty voiding, dysuria, urinary frequency, urinary urgency or urinary hesitancy Musc: Reports: extremity pain; Denies: neck pain, back pain, extremity swelling, joint pain, joint swelling, joint redness, joint warmth or limited range of motion Skin/Breast: Reports: other (Puncture wounds left lateral knee); Denies: rash, pruritus, erythema or skin tenderness Neuro: Denies: headache(s), numbness in extremities or weakness in extremities Psych: Denies: anxiety or depression PFSH ED PFSH: Medical History Asthma Chronic migraine without aura, intractable, with status migrainosus Surgical History H/O tympanostomy (~2001) S/P tonsillectomy (~2004) Age 5. Performed by [address] Lombardo at [facility] Family History Mother Diabetes Hyperlipidemia Hypertension Stroke CAD (coronary artery disease) Social History Smoking and tobacco status: never smoked Alcohol intake: never History of recent travel: No Female Reproductive History: Date of last menstrual period: 09/16/20 Physical Exam Const: COMMON NORMALS: no acute distress, average body habitus, patient oriented x3, no limitations, healthy appearing, alert and well nourished HENMT: COMMON NORMALS: normocephalic, atraumatic, hearing grossly normal bilaterally, external ears normal, EAC's normal, TM's normal bilaterally, Normal external nose present, Normal nasal mucous membranes and turbinates present, moist oral mucous membranes, oropharynx normal, dentition normal and gingiva normal HEAD & SCALP: normocephalic and atraumatic NOSE: Normal external nose present and Normal nasal mucous membranes and turbinates present EXTERNAL EAR: Yes external ears normal EXTERNAL AUDITORY CANAL: EAC's normal TYMPANIC MEMBRANE: TM's normal bilaterally Neck/C-Spine: COMMON NORMALS: full ROM, no lymphadenopathy, supple, no meningeal signs, no JVD, Thyroid normal and No carotid bruits THYROID: Thyroid normal Chest: COMMONS NORMALS: normal inspection of the chest, normal palpation of entire chest wall, normal inspection of the breasts and normal palpation of the breasts Breast/axilla inspection: Yes normal inspection of the breasts BREAST/AXILLA PALPATION: Yes normal palpation of the breasts Resp: COMMON NORMALS: normal respiratory effort, No retractions, No use of accessory muscles, clear to auscultation bilaterally and percussion normal AUSCULTATION: clear to auscultation bilaterally PERCUSSION: percussion normal Cardio: COMMON NORMALS: no JVD, regular rate, regular rhythm, S1 normal heart sound present, S2 normal heart sound present, No gallops present (Cardio), No clicks present (Cardio), No murmurs present (Cardio), No rub (Cardio) and Peripheral pulses 2+ throughout RATE: regular rate RHYTHM: regular rhythm HEART SOUNDS: S1 normal heart sound present and S2 normal heart sound present PERIPHERAL PULSES: Peripheral pulses 2+ throughout GI: COMMON NORMALS: Normal to inspection, nondistended, normoactive bowel sounds present, Soft to palpation, non-tender, No hepatosplenomegaly present, no masses and no bruits PALPATION: Yes Soft to palpation and Yes No he patosplenomegaly present : COMMON NORMALS: Yes no CVA tenderness, Yes normal external appearance, Yes normal appearance of the vagina, Yes normal appearance of the cervix, Yes normal bimanual exam, Yes No adnexal tenderness and Yes no masses BLADDER/KIDNEY EXAM: Yes no CVA tenderness BIMANUAL EXAM - VAGINA & UTERUS: Yes normal bimanual exam Back/Pelvis: COMMON NORMALS: no CVA tenderness, thoracic and lumbar spine nor mal to inspection, no thoracic nor lumbar tenderness, thoraco-lumbar ROM normal and straight leg raise negative bilaterally Extremity: COMMON NORMALS: normal to inspection, full ROM, capillary refill normal, no joint enlargement, no clubbing, cyanosis or edema, no calf tenderness and no pedal edema NARRATIVE EXTREMITY EXAM: 4 small puncture wounds consistent with dog bite left lateral knee. No active bleeding. Full range of motion of the knee. Neuro: COMMON NORMALS: patient oriented x3 SENSORIUM/ORIENTATION: Yes alert MENINGEAL SIGNS: Yes no meningeal signs Course Reevaluation(s): Reevaluation #1: Patient to keep wound clean dry and covered. Use Neosporin or triple antibiotic ointment as instructed. Wound will heal by secondary intention. Take antibiotics as instructed. Pain medicine as prescribed. Rest elevate ice knee with compression with Tremaine. Follow-up with PCP in 3 to 5 days for wound check. Time: 14:19 Vital Signs: Vital signs: Vital Signs Temperature 98.2 F 02/03/21 13:47 Pulse Rate 82 02/03/21 13:47 Respiratory Rate 16 02/03/21 13:47 Blood Pressure 111/71 02/03/21 13:47 Pulse Oximetry 98 02/03/21 13:47 MDM - Wound/Laceration MDM Narrative: Medical decision making narrative: This patient is a 20-year-old female who presents to the emergency department with complaint of a dog bite. This was a family pet pitbull mix.. Family member states they have already put the dog down. Patient has 4 little puncture wounds on the lateral left knee. Full range of motion is present. No active bleeding. Will do medical evaluation treat as needed Negative x-ray of the knee for any acute bony injury. Does have some subcu air. Due to dog bite Patient to keep wound clean dry and covered. Use Neosporin or triple antibiotic ointment as instructed. Wound will heal by secondary intention. Take antibiotics as instructed. Pain medicine as prescribed. Rest elevate ice knee with compression with Tremaine. Follow-up with PCP in 3 to 5 days for wound check. Patient understands that the wounds will not be sutured closed due to increased infection risk. Imaging Data^: Xray Ortho: Attestation: I personally reviewed and interpreted this imaging study as follows: My impression: No bony injury. Patient does have some subcu air in the loc alized area from puncture wounds. Discharge Plan Discharge Patient Disposition: Home Clinical Impression: Dog bite of left knee, Puncture wound Condition: Stable Prescriptions: New amoxicillin-pot clavulanate [Augmentin] 875-125 mg tablet 1 tab PO Q12H Qty: 20 RF: 0 diclofenac sodium 75 mg tablet,delayed release (DR/EC) 75 mg PO BID PRN (Reason: pain) Qty: 20 RF: 0 No Action Xulane 150-35 mcg/24 hr patch weekly 1 patch transdermal Q7D Qty: 4 RF: 12 amitriptyline 25 mg tablet 25 mg PO DAILY Qty: 30 RF: 2 Ajovy Autoinjector 225 mg/1.5 mL auto-injector 225 mg SUBCUT ONCE Qty: 1.5 RF: 5 diclofenac sodium 75 mg tablet,delayed release (DR/EC) 75 mg PO BID PRN (Reason: pain) Qty: 20 RF: 0 Multiple Vitamin, Womens Tablet 1 tab PO DAILY RF: 0 albuterol sulfate 90 mcg/actuation HFA aerosol inhaler 2 inh INHALATION Q4H PRN (Reason: shortness of breath or wheezing) Qty: 18 RF: 0 Naprosyn 500 mg tablet 500 mg PO BID PRN (Reason: pain) Qty: 20 RF: 0 Discharge Orders: Discharge ED (Routine); Ordered 02/03/21 Ordered By: Ivan Beverly Discharge Diet: Advance as tolerated Discharge Activity: Resume usual activity Patient Instructions: Opioid Safety Activity Restrictions/Additional Instructions: Patient to keep wound clean dry and covered. Use Neosporin or triple antibiotic ointment as instructed. Wound will heal by secondary intention. Take antibiotics as instructed. Pain medicine as prescribed. Rest elevate ice knee with compression with Tremaine. Follow-up with PCP in 3 to 5 days for wound check. Coding Level of Care Code ED Adolescent Medicine Specialist for Chg Fwd Exam Comprehensive
[2021-02-03] MEDS: tetanus-dipt-pertussis 0.5 mL SDV IM (14:46)
[2021-02-03] MEDS: ibuprofen 800 mg tablet PO (14:52)
== END 2021-02-03 15:18 | disposition home or self-care (01) ==
PROVIDERS: Emergency Provider Emergency Medicine
DX: S81.052A Open bite, left knee, initial encounter (principal); W54.0XXA Bitten by dog, initial encounter; Z23 Encounter for immunization
CPT/HCPCS: 73562; 90471; 90715; 99283

== ENCOUNTER 2021-05-16 20:38 | Emergency (ER) | payer OTHER, MEDICAID, SELFPAY ==
[2021-05-16 21:21] VITALS: BP 122/64; PULSE 111; RESP 20; TEMP 37.4; O2SAT 99; BMI 24.7
[2021-05-16 22:12] LABS: SARS Covid-2 Antigen Negative (Negative)
[2021-05-16 23:18] LABS: Basophils # 0.1 10^3/uL (0.0-0.1); Basophils % 0.5 %; Eosinophils # 0.1 10^3/uL (0.0-0.8); Eosinophils % 1.1 %; Hemoglobin 13.6 g/dL (11.5-15.3); Lymphocytes # 1.3 10^3/uL (0.8-4.8); Lymphocytes % 11.1 %; Mean Corpuscular Hemoglobin 31.5 pg (28.0-34.0); Mean Corpuscular Volume 92.6 fl (81-99); Mean Platelet Volume 9.3 fL (7.4-10.4); Monocytes # 1.1 10^3/uL (0.2-0.9); Monocytes % 9.5 %; Neutrophils # 8.77 10^3/uL (1.8-7.7); Neutrophils % 77.4 %; Nucleated Red Blood Cells % 0 %; Platelet Count 254 10^3/cmm (130-400); Red Blood Count 4.32 10^6/uL (4.1-5.3); Red Cell Distribution Width 11.3 % (12.1-15.1); White Blood Count 11.3 10^3/uL (4.0-10.0)
[2021-05-16 23:40] LABS: Alanine Aminotransferase 11 U/L (0-33); Albumin Level 4.3 g/dL (3.5-5.2); Alkaline Phosphatase 48 IU/L (35-105); Anion Gap 16.8 (5-19); Aspartate Amino Transferase 12 U/L (0-32); Blood Urea Nitrogen 8 mg/dL (6-20); Calcium 8.5 mg/dL (8.5-10.5); Carbon Dioxide 23 mmol/L (22-29); Chloride 103 mmol/L (98-107); Creatinine Clr Calc Pharmacy 152.2015; Globulin 2.8 g/dL (1.3-4.6); Glucose 97 mg/dL (65-115); Lipase 13 U/L (13-60); Osmolality Calculated 286 mOsm/kg (285-295); Potassium 3.8 mmol/L (3.5-5.1); Sodium 139 mmol/L (136-145); Total Bilirubin 0.2 mg/dL (0.15-1.2); Total Protein 7.1 g/dL (6.6-8.7)
[2021-05-16 23:42] LABS: HCG, Serum Qual Negative (Negative)
--- NOTE | 2021-05-17 02:01 | ECG_ITS ---
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 Measurements Intervals [place] Rate: 78 P: 41 WI: 117 QRS: 53 QRSD: 97 T: 48 QT: 359 QTc: 410 Interpretive Statements SINUS RHYTHM WITH SHORT WI INTERVAL POSSIBLE RIGHT VENTRICULAR CONDUCTION DELAY [RSR (QR) IN V1/V2] Compared to ECG 12/07/2019 19:25:47 Short WI interval now present Sinus bradycardia no longer present Electronically Signed On 05-17-2021 22:01:23 ACCREDITATION COORDINATOR by Diony Hodgson M.D. [id number]
--- NOTE | 2021-05-17 02:06 | ED_ITS ---
HPI - Nausea/Vomiting/Diarrhea General: Chief complaint: Nausea/Vomiting/Diarrhea Stated complaint: n\v SOB Passed out Time Seen by Provider: 05/17/21 01:23 Source: patient Mode of arrival: ambulatory Limitations: no limitations History of Present Illness: HPI Narrative: 21-year-old female states over the last 3 days she has been having cough congestion nasal drainage. States that over the last 3 days she is also had nausea vomiting with it worsened today. States she has not been able to tolerate any liquids and had a syncopal event earlier. She states that it happened roughly 4 hours ago during a vomiting episode. She denies any headache or chest pain denies any worsening improving factors denies any abdominal pain. Associated nausea: Yes Associated symtoms: Reports nausea and syncope; Denies dysuria or headache(s) Review of Systems Const: Reports: chills and body aches Eyes: Denies: blurry vision or eye discomfort ENMT: Reports: nasal congestion Card: Reports: syncope Resp: Denies: dyspnea GI: Reports: nausea and vomiting : Denies: dysuria Musc: Denies: neck pain or back pain Skin/Breast: Denies: rash Neuro: Denies: headache(s) Psych: Denies: depression Santy/Lymph: Denies: easy bruising All/Imm: Denies: urticaria PFSH ED PFSH: Medical History Asthma Chronic migraine without aura, intractable, with status migrainosus Surgical History H/O tympanostomy (~2001) S/P tonsillectomy (~2004) Age 5. Performed by [address] Lombardo at [facility] Family History Mother Diabetes Hyperlipidemia Hypertension Stroke CAD (coronary artery disease) Social History Smoking and tobacco status: never smoked Alcohol intake: never History of recent travel: No Female Reproductive History: Date of last menstrual period: 09/16/20 Physical Exam Const: COMMON NORMALS: no acute distress, patient oriented x3 and healthy appearing HENMT: COMMON NORMALS: normocephalic and atraumatic HEAD & SCALP: normocephalic and atraumatic NOSE: Nasal discharge present THROAT: posterior oropharynx normal Eye: COMMON NORMALS: Equal, round and reactive pupils present and EOMs intact bilaterally PUPIL: Yes Equal, round and reactive pupils present Neck/C-Spine: COMMON NORMALS: full ROM and supple Chest: COMMONS NORMALS: normal inspection of the chest and normal palpation of entire chest wall Resp: COMMON NORMALS: normal respiratory effort, No retractions, No use of accessory muscles and clear to auscultation bilaterally AUSCULTATION: clear to auscultation bilaterally Cardio: COMMON NORMALS: regular rate, regular rhythm and No murmurs present (Cardio) RATE: regular rate RHYTHM: regular rhythm GI: COMMON NORMALS: Normal to inspection, nondistended, normoactive bowel sounds present, Soft to palpation, non-tender and no masses PALPATION: Yes Soft to palpation Extremity: COMMON NORMALS: normal to inspection and full ROM Neuro: COMMON NORMALS: patient oriented x3, moves all extremities and no focal motor deficits Psych: COMMON NORMALS: mental status grossly normal, Normal thought process present and cooperative THOUGHT PROCESS: Normal thought process present Skin: COMMON NORMALS: no rashes or lesions noted and no wounds GENERAL SKIN EXAM: no rashes or lesions noted Course Vital Signs: Vital signs: Vital Signs Temperature 99.4 F 05/16/21 21:21 Pulse Rate 71 05/17/21 02:44 Respiratory Rate 18 05/17/21 02:44 Blood Pressure 122/64 05/16/21 21:21 Pulse Oximetry 100 05/17/21 02:44 MDM - Nausea/Vomiting/Diarrhea MDM Narrative: Medical decision making narrative: Patient presents here with nausea vomiting cough congestion likely viral syndrome. Patient's blood work Covid x-ray are all normal. Abdominal exam here is benign no signs of acute appendicitis she feels much improved here after Zofran and is able to tolerate p.o. fluids syncope likely vagal related to vomiting EKG is normal no signs of intracranial hemorrhage or cardiac cause she is stable for discharge she is follow-up with PCP and return if worsening. Lab Data: Labs: Lab Results 05/16/21 05/16/21 05/16/21 21:30 23:14 23:14 WBC 11.3 10^3/uL H 10 ^3/uL (4.0-10.0) RBC 4.32 10^6/uL 10^6 /uL (4.1-5.3) Hgb 13.6 g/dL g/dL (11.5-15.3) Hct 40.0 % % (37.0-47.0) MCV 92.6 fl fl (81-99) MCH 31.5 pg pg (28.0-34.0) MCHC 34.0 g/dL g/dL (30.0-36.0) RDW 11.3 % L % (12.1-15.1) Plt Count 254 10^3/cmm 10^3 /cmm (130-400) MPV 9.3 fL fL (7.4-10.4) Neut % (Auto) 77.4 % % Lymph % (Auto) 11.1 % % [place] % (Auto) 9.5 % % Eos % (Auto) 1.1 % % Baso % (Auto) 0.5 % % Neut # (Auto) 8.77 10^3/uL H 10 ^3/uL (1.8-7.7) Lymph # (Auto) 1.3 10^3/uL 10^3/ uL (0.8-4.8) [place] # (Auto) 1.1 10^3/uL H 10^ 3/uL (0.2-0.9) Eos # (Auto) 0.1 10^3/uL 10^3/ uL (0.0-0.8) Baso # (Auto) 0.1 10^3/uL 10^3/ uL (0.0-0.1) Nucleated RBC % (a uto) 0 % % Nucleated RBCs # 0.0 /100WBC /100W BC Sodium 139 mmol/L mmol/L (136-145) Potassium 3.8 mmol/L mmol/L (3.5-5.1) Chloride 103 mmol/L mmol/L (98-107) Carbon Dioxide 23 mmol/L mmol/L (22-29) Anion Gap 16.8 (5-19) BUN 8 mg/dL mg/dL (6-20) Creatinine 0.6 mg/dL mg/dL (0.5-0.9) GFR Calculation 125.0 mL/min mL/m in (90-130) Glucose 97 mg/dL mg/dL (65-115) Calculated Osmolal ity 286 mOsm/kg mOsm/ kg (285-295) Calcium 8.5 mg/dL mg/dL (8.5-10.5) Total Bilirubin 0.2 mg/dL mg/dL (0.15-1.2) AST 12 U/L U/L (0-32) ALT 11 U/L U/L (0-33) Alkaline Phosphata se 48 IU/L IU/L (35-105) Total Protein 7.1 g/dL g/dL (6.6-8.7) Albumin 4.3 g/dL g/dL (3.5-5.2) Globulin 2.8 g/dL g/dL (1.3-4.6) Lipase 13 U/L U/L (13-60) HCG, Qual Urine Color Urine Appearance Urine pH Ur Specific Gravit y Urine Protein Urine Glucose (UA) Urine Ketones Urine Blood Urine Nitrate Urine Bilirubin Urine Urobilinogen Ur Leukocyte Archana ase Urine RBC Urine WBC Ur Squamous Epith Cells Amorphous Sediment Urine Bacteria SARS-CoV-2 Ag (Rap id) Negative (Negative) 05/16/21 05/17/21 23:14 02:00 WBC RBC Hgb Hct MCV MCH MCHC RDW Plt Count MPV Neut % (Auto) Lymph % (Auto) [place] % (Auto) Eos % (Auto) Baso % (Auto) Neut # (Auto) Lymph # (Auto) [place] # (Auto) Eos # (Auto) Baso # (Auto) Nucleated RBC % (a uto) Nucleated RBCs # Sodium Potassium Chloride Carbon Dioxide Anion Gap BUN Creatinine GFR Calculation Glucose Calculated Osmolal ity Calcium Total Bilirubin AST ALT Alkaline Phosphata se Total Protein Albumin Globulin Lipase HCG, Qual Negative (Negative) Urine Color Yellow (Yellow) Urine Appearance Clear (CLEAR) Urine pH 6 (5-7) Ur Specific Gravit y 1.010 (1.005-1.030) Urine Protein Neg (Negative) Urine Glucose (UA) Norm (Normal) Urine Ketones Negative (Negative) Urine Blood 2+ H (Negative) Urine Nitrate Negative (Negative) Urine Bilirubin Neg (Negative) Urine Urobilinogen Neg mg/dL mg/dL (Negative) Ur Leukocyte Archana ase Negative (Negative) Urine RBC Rare /hpf /hpf (0-2) Urine WBC 0-4 /hpf H /hpf (0-5) Ur Squamous Epith Cells 0-4 /hpf H /hpf (0-5) Amorphous Sediment Not Reportable Urine Bacteria None /hpf /hpf (NONE) SARS-CoV-2 Ag (Rap id) EKG Data^: EKG 1: Attestation: I personally reviewed and interpreted this EKG as follows: EKG interpretation date: 05/17/21 EKG interpretation time: 02:12 Interpretation: nsr hr [address] or t wave abnormalities qrs 97 qtc 392 Discharge Plan Discharge Patient Disposition: Home Clinical Impression: Acute viral syndrome Vomiting Qualifiers: Vomiting type: unspecified Nausea presence: with nausea Qualified Code(s): R11.2 - Nausea with vomiting, unspecified Syncope Qualifiers: Syncope type: unspecified Qualified Code(s): R55 - Syncope and collapse Condition: Stable Prescriptions: New ondansetron 4 mg tablet,disintegrating 4 mg PO Q6H PRN (Reason: nausea and vomiting) Qty: 14 RF: 0 No Action Xulane 150-35 mcg/24 hr patch weekly 1 patch transdermal Q7D Qty: 4 RF: 12 amitriptyline 25 mg tablet 25 mg PO DAILY Qty: 30 RF: 2 Ajovy Autoinjector 225 mg/1.5 mL auto-injector 225 mg SUBCUT ONCE Qty: 1.5 RF: 5 diclofenac sodium 75 mg tablet,delayed release (DR/EC) 75 mg PO BID PRN (Reason: pain) Qty: 20 RF: 0 Multiple Vitamin, Womens Tablet 1 tab PO DAILY RF: 0 albuterol sulfate 90 mcg/actuation HFA aerosol inhaler 2 inh INHALATION Q4H PRN (Reason: shortness of breath or wheezing) Qty: 18 RF: 0 Naprosyn 500 mg tablet 500 mg PO BID PRN (Reason: pain) Qty: 20 RF: 0 Augmentin 875-125 mg tablet 1 tab PO Q12H Qty: 20 RF: 0 diclofenac sodium 75 mg tablet,delayed release (DR/EC) 75 mg PO BID PRN (Reason: pain) Qty: 20 RF: 0 Discharge Orders: Discharge ED (Routine); Ordered 05/17/21 Ordered By: Isela Eddy Discharge Diet: Advance as tolerated Discharge Activity: Resume usual activity Patient Instructions: Syncope (ED), Acute Nausea and Vomiting (ED) Stand Alone Forms: Work/School Release Coding Level of Care Code ED Solutions Market Consultant for Chg Fwd Exam Comprehensive
--- NOTE | 2021-05-17 02:08 | XRR_ITS ---
PROCEDURE INFORMATION: Exam: XR Chest Exam date and time: 05/17/2021 2:08 AM Age: 21 years old Clinical indication: Cough and shortness of breath TECHNIQUE: Imaging protocol: XR of the chest. Views: 1 view. COMPARISON: CR XR chest 1V portable [id number] 10/10/2020 2:39 PM FINDINGS: Lungs: Unremarkable. No consolidation. Pleural spaces: Unremarkable. No pleural effusion. No pneumothorax. Heart/Mediastinum: Unremarkable. No cardiomegaly. Bones/joints: No emergent findings identified. XR/XR chest 1V portable [id number] IMPRESSION: 1. No acute findings.
[2021-05-17 02:24] LABS: Add Urine Microscopic? YES; Bilirubin Urine Neg (Negative); Blood Urine 2+ (Negative); Glucose Urine UA Norm (Normal); Ketones Urine Negative (Negative); Leukocyte Esterase Urine Negative (Negative); Nitrate Urine Negative (Negative); Protein Urine Neg (Negative); Urine Appearance Clear (CLEAR); Urine Color Yellow (Yellow); Urobilinogen Urine Neg (Negative); pH Urine 6 (5-7)
[2021-05-17 02:25] LABS: Add Urine Culture? No; RBC Urine RARE /hpf (0-2); Squamous Epithelial Cell Urine 0-4 /hpf (0-5); WBC Urine 0-4 /hpf (0-5)
[2021-05-17] MEDS: sodium chloride 0.9% 1,000 ML 999 ML IV (02:25)
[2021-05-17] MEDS: ondansetron 2 mg/ML SDV 2 mL 4 MG IVP (02:25)
[2021-05-17] MEDS: ketorolac 30 mg/mL INJ IVP (02:39)
[2021-05-17 02:44] VITALS: PULSE 71; RESP 18; O2SAT 100
== END 2021-05-17 03:28 | disposition home or self-care (01) ==
PROVIDERS: Emergency Provider Emergency Medicine
DX: B34.9 Viral infection, unspecified (principal); R55 Syncope and collapse; R11.2 Nausea with vomiting, unspecified; Z20.822 Contact with and (suspected) exposure to COVID-19
CPT/HCPCS: 36415; 71045; 80053; 81001; 83690; 84703; 85025; 87426; 93005; 96361; 96374; 96375; 99284; J1885; J2405; J7030

== ENCOUNTER 2021-07-25 12:00 | Outpatient (CLI) | payer OTHER, MEDICAID, SELFPAY | END 2021-07-25 12:01 | disposition home or self-care (01) | LOC: SLEEP 07-26 15:24 | PROVIDERS: Visit Provider Pediatrics | DX: R06.81 Apnea, not elsewhere classified (principal) | CPT/HCPCS: G0399 ==

== ENCOUNTER 2021-08-09 07:03 | Observation (INO) | payer OTHER, MEDICAID, SELFPAY ==
[2021-08-09] VITALS (22 sets, daily range): BP systolic 101–141; BP diastolic 62–102; PULSE 62–135; RESP 16–18; TEMP 36.4–36.9; O2SAT 95–100; BMI 21.9
--- NOTE | 2021-08-09 07:19 | ED_ITS ---
HPI - Nausea/Vomiting/Diarrhea General: Chief complaint: Abdominal Pain Stated complaint: Rt side of abd pain with vomiting Time Seen by Provider: 08/09/21 07:07 History of Present Illness: Patient states she started some nausea and vomiting on Friday. Denies fever. Does have urinary frequency. Does have some abdominal discomfort across her abdomen which is consistent with her past history she said she has had abdominal problems for years. She said the never been able to find out the cause of that. Patient states that she has a little bit not drinking much. Quit smoking pot months ago because it caused problems with her abdomen. Does take Celexa at night to help with sleep. Associated nausea: Yes Associated symtoms: Reports nausea; Denies chest pain or headache(s) Review of Systems Const: Denies: fever(s), chills or body aches Eyes: Denies: eye discomfort ENMT: Denies: throat pain Card: Denies: chest pain Resp: Denies: dyspnea GI: Reports: abdominal pain, nausea, vomiting and GI cramping; Denies: heartburn, diarrhea or constipation : Reports: urinary frequency; Denies: vaginal odor or vaginal discharge Skin/Breast: Denies: rash Neuro: Denies: headache(s) Psych: Denies: depression or suicidal ideation PFS ED PFSH: Medical History Asthma Chronic migraine without aura, intractable, with status migrainosus Surgical History H/O tympanostomy (~2001) S/P tonsillectomy (~2004) Age 5. Performed by [address] Lombardo at [facility] Family History Mother Diabetes Hyperlipidemia Hypertension Stroke CAD (coronary artery disease) Social History Smoking and tobacco status: never smoked Alcohol intake: never History of recent travel: No Female Reproductive History: Date of last menstrual period: 09/16/20 Physical Exam Const: COMMON NORMALS: no acute distress, patient oriented x3 and alert HENMT: COMMON NORMALS: normocephalic and external ears normal HEAD & SCALP: normocephalic EXTERNAL EAR: Yes external ears normal Eye: COMMON NORMALS: EOMs intact bilaterally Neck/C-Spine: COMMON NORMALS: no JVD Resp: COMMON NORMALS: normal respiratory effort and No use of accessory muscles Cardio: COMMON NORMALS: no JVD GI: INSPECTION: Yes normal to inspection AUSCULTATION: Yes normoactive bowel sounds PALPATION: Yes Tenderness to palpation present (GI) (Throughout whole abdomen increased tenderness to right middle quadrant) Details: other (No rebound tenderness noted, no pain with movement or percussion.) PERCUSSION: normal to percussion Extremity: COMMON NORMALS: normal to inspection and full ROM Neuro: COMMON NORMALS: patient oriented x3 SENSORIUM/ORIENTATION: Yes alert Psych: COMMON NORMALS: mental status grossly normal Skin: COMMON NORMALS: no rashes or lesions noted GENERAL SKIN EXAM: no rashes or lesions noted Course Vital Signs: Vital signs: Vital Signs Temperature 98.2 F 08/09/21 07:17 Pulse Rate 62 08/09/21 08:41 Respiratory Rate 16 08/09/21 07:17 Blood Pressure 141/81 08/09/21 08:41 Pulse Oximetry 99 08/09/21 08:43 MDM - Nausea/Vomiting/Diarrhea Medical Decision Making I spoke with Dr. Zaman and Dr. Rankin concerning this patient Lab Data : 08/09/21 07:33 08/09/21 07:33 Laboratory Results WBC 14.1 10^3/uL (4.0-10.0) H 08/09/21 07:33 RBC 4.40 10^6/uL (4.1-5.3) 08/09/21 07:33 Hgb 13.9 g/dL (11.5-15.3) 08/09/21 07:33 Hct 41.1 % (37.0-47.0) 08/09/21 07:33 MCV 93.4 fl (81-99) 08/09/21 07:33 MCH 31.6 pg (28.0-34.0) 08/09/21 07:33 MCHC 33.8 g/dL (30.0-36.0) 08/09/21 07:33 RDW 11.7 % (12.1-15.1) L 08/09/21 07:33 Plt Count 276 10^3/cmm (130-400) 08/09/21 07:33 MPV 9.8 fL (7.4-10.4) 08/09/21 07:33 Neut % (Auto) 82.1 % 08/09/21 07:33 Lymph % (Auto) 10.4 % 08/09/21 07:33 Hardin % (Auto) 5.9 % 08/09/21 07:33 Eos % (Auto) 0.8 % 08/09/21 07:33 Baso % (Auto) 0.4 % 08/09/21 07:33 Neut # (Auto) 11.55 10^3/uL (1.8-7.7) H 08/09/21 07:33 Lymph # (Auto) 1.5 10^3/uL (0.8-4.8) 08/09/21 07:33 Hardin # (Auto) 0.8 10^3/uL (0.2-0.9) 08/09/21 07:33 Eos # (Auto) 0.1 10^3/uL (0.0-0.8) 08/09/21 07:33 Baso # (Auto) 0.1 10^3/uL (0.0-0.1) 08/09/21 07:33 Nucleated RBC % (auto) 0 % 08/09/21 07:33 Nucleated RBCs # 0.0 /100WBC 08/09/21 07:33 Sodium 139 mmol/L (136-145) 08/09/21 07:33 Potassium 3.9 mmol/L (3.5-5.1) 08/09/21 07:33 Chloride 103 mmol/L (98-107) 08/09/21 07:33 Carbon Dioxide 25 mmol/L (22-29) 08/09/21 07:33 Anion Gap 14.9 (5-19) 08/09/21 07:33 BUN 9 mg/dL (6-20) 08/09/21 07:33 Creatinine 0.5 mg/dL (0.5-0.9) 08/09/21 07:33 GFR Calculation 154.3 mL/min (90-130) H 08/09/21 07:33 Glucose 104 mg/dL (65-115) 08/09/21 07:33 Calculated Osmolality 287 mOsm/kg (285-295) 08/09/21 07:33 Calcium 9.7 mg/dL (8.5-10.5) 08/09/21 07:33 Total Bilirubin 0.7 mg/dL (0.15-1.2) 08/09/21 07:33 AST 13 U/L (0-32) 08/09/21 07:33 ALT 12 U/L (0-33) 08/09/21 07:33 Alkaline Phosphatase 47 IU/L (35-105) 08/09/21 07:33 Total Protein 7.7 g/dL (6.6-8.7) 08/09/21 07:33 Albumin 4.5 g/dL (3.5-5.2) 08/09/21 07:33 Globulin 3.2 g/dL (1.3-4.6) 08/09/21 07:33 Lipase 12 U/L (13-60) L 08/09/21 07:33 HCG, Qual Negative (Negative) 08/09/21 07:33 Urine Color Yellow (Yellow) 08/09/21 07:35 Urine Appearance Clear (CLEAR) 08/09/21 07:35 Urine pH 7 (5-7) 08/09/21 07:35 Ur Specific [place] 1.015 (1.005-1.030) 08/09/21 07:35 Urine Protein Neg (Negative) 08/09/21 07:35 Urine Glucose (UA) Norm (Normal) 08/09/21 07:35 Urine Ketones 1+ (Negative) H 08/09/21 07:35 Urine Blood 3+ (Negative) H 08/09/21 07:35 Urine Nitrate Negative (Negative) 08/09/21 07:35 Urine Bilirubin Neg (Negative) 08/09/21 07:35 Urine Urobilinogen 1 mg/dL (Negative) H 08/09/21 07:35 Ur Leukocyte Esterase Negative (Negative) 08/09/21 07:35 Urine RBC 15-25 /hpf (0-2) H 08/09/21 07:35 Urine WBC 0-4 /hpf (0-5) H 08/09/21 07:35 Ur Squamous Epith Cells 10-15 /hpf (0-5) H 08/09/21 07:35 Amorphous Sediment Not Reportable 08/09/21 07:35 Urine Bacteria 1+ /hpf (NONE) H 08/09/21 07:35 Urine Mucus 2+ /hpf 08/09/21 07:35 Discharge Plan Discharge Condition: Stable Prescriptions: No Action Xulane 150-35 mcg/24 hr patch weekly 1 patch transdermal Q7D Qty: 4 12RF Rx Instructions: apply once weekly, noncyclic/continuous therapy. amitriptyline 25 mg tablet 25 mg PO DAILY Qty: 30 2RF Ajovy Autoinjector 225 mg/1.5 mL auto-injector 225 mg SUBCUT ONCE Qty: 1.5 5RF Rx Instructions: Take one injection monthly. diclofenac sodium 75 mg tablet,delayed release (DR/EC) 75 mg PO BID PRN (Reason: pain) Qty: 20 0RF Multiple Vitamin, Womens Tablet 1 tab PO DAILY 0RF albuterol sulfate 90 mcg/actuation HFA aerosol inhaler 2 inh INHALATION Q4H PRN (Reason: shortness of breath or wheezing) Qty: 18 0RF Naprosyn 500 mg tablet 500 mg PO BID PRN (Reason: pain) Qty: 20 0RF Augmentin 875-125 mg tablet 1 tab PO Q12H Qty: 20 0RF diclofenac sodium 75 mg tablet,delayed release (DR/EC) 75 mg PO BID PRN (Reason: pain) Qty: 20 0RF ondansetron 4 mg tablet,disintegrating 4 mg PO Q6H PRN (Reason: nausea and vomiting) Qty: 14 0RF Coding Level of Care Code ED City Magistrate for Chg Fwd Exam Comprehensive
[2021-08-09 07:46] LABS: Basophils # 0.1 10^3/uL (0.0-0.1); Basophils % 0.4 %; Eosinophils # 0.1 10^3/uL (0.0-0.8); Eosinophils % 0.8 %; Hematocrit 41.1 % (37.0-47.0); Hemoglobin 13.9 g/dL (11.5-15.3); Lymphocytes # 1.5 10^3/uL (0.8-4.8); Lymphocytes % 10.4 %; Mean Corpuscular HGB Conc 33.8 g/dL (30.0-36.0); Mean Corpuscular Hemoglobin 31.6 pg (28.0-34.0); Mean Corpuscular Volume 93.4 fl (81-99); Mean Platelet Volume 9.8 fL (7.4-10.4); Monocytes # 0.8 10^3/uL (0.2-0.9); Monocytes % 5.9 %; Neutrophils # 11.55 10^3/uL (1.8-7.7); Neutrophils % 82.1 %; Nucleated Red Blood Cells % 0 %; Platelet Count 276 10^3/cmm (130-400); Red Cell Distribution Width 11.7 % (12.1-15.1); White Blood Count 14.1 10^3/uL (4.0-10.0)
[2021-08-09] MEDS: metoclopramide 5 mg/mL SDV 2 mL 10 MG IVP (07:50)
[2021-08-09] MEDS: sodium chloride 0.9% 1,000 ML 999 ML IV (07:50)
[2021-08-09 07:53] LABS: HCG Qualitative Urine. Negative (Negative)
[2021-08-09 08:02] LABS: Alanine Aminotransferase 12 U/L (0-33); Albumin Level 4.5 g/dL (3.5-5.2); Alkaline Phosphatase 47 IU/L (35-105); Anion Gap 14.9 (5-19); Aspartate Amino Transferase 13 U/L (0-32); Blood Urea Nitrogen 9 mg/dL (6-20); Calcium 9.7 mg/dL (8.5-10.5); Carbon Dioxide 25 mmol/L (22-29); Chloride 103 mmol/L (98-107); Globulin 3.2 g/dL (1.3-4.6); Glomerular Filtration Rate 154.3 mL/min (90-130); Glucose 104 mg/dL (65-115); Lipase 12 U/L (13-60); Osmolality Calculated 287 mOsm/kg (285-295); Potassium 3.9 mmol/L (3.5-5.1); Sodium 139 mmol/L (136-145); Total Bilirubin 0.7 mg/dL (0.15-1.2); Total Protein 7.7 g/dL (6.6-8.7)
[2021-08-09 08:11] LABS: Glucose Urine UA Norm (Normal); Ketones Urine 1+ (Negative); Protein Urine Neg (Negative); Specific Gravity, Urine 1.015 (1.005-1.030); Urine Appearance Clear (CLEAR); Urine Color Yellow (Yellow); pH Urine 7 (5-7)
[2021-08-09 08:12] LABS: Add Urine Microscopic? YES; Bilirubin Urine Neg (Negative); Blood Urine 3+ (Negative); Leukocyte Esterase Urine Negative (Negative); Nitrate Urine Negative (Negative); Urobilinogen Urine 1 mg/dL (Negative)
[2021-08-09 08:13] LABS: RBC Urine 15-25 /hpf (0-2); WBC Urine 0-4 /hpf (0-5)
[2021-08-09 08:14] LABS: Add Urine Culture? No; Bacteria Urine 1+ /hpf; Mucus Urine 2+ /hpf
--- NOTE | 2021-08-09 08:16 | CT_ITS ---
WS: [id number] CT ABDOMEN PELVIS TECHNIQUE: Contrast-enhanced CT of the abdomen and pelvis with coronal and sagittal reformatted image s. CLINICAL INFORMATION: pain COMPARISON: CT November 05, 2020 DLP: 1080.[address] scans at [facility] use at least one of these dose optimization techniques: automated e xposure control; mA and/or kV adjustment per patient size (includes targeted exams where dose is matc hed to clinical indication); or iterative reconstruction. FINDINGS: Dilated fluid-filled appendix in the RIGHT lower quadrant with peripheral enhancement and surrounding inflammatory stranding compatible with acute appendicitis. Appendicolith in the proximal aspect of t he appendix. Appendix measures approximately 10 mm in transverse dimension. Tip of the appendix exten ds into the RIGHT lower pelvis anteriorly. Appendix is dilated and tortuous. Small amount of free fluid in the pelvic cul-de-sac. No evidence of appendiceal abscess. Reactive lym ph nodes in the RIGHT lower quadrant. Lung bases are well aerated. Liver is normal in appearance. Focal fat near the falciform ligament unc hanged from previous. Normal portal vein and splenic vein. Normal spleen. Adrenal glands are normal. Normal renal parenchymal enhancement. No hydronephrosis. Normal celiac and SMA. Pelvic varicosities. Bilateral physiologic ovarian follicles. Enhancing LEFT ovarian cyst or corpus l uteum cyst measuring 15 mm. Normal caliber abdominal aorta. CT/CT abdomen pelvis w con* [id number] IMPRESSION: 1. Findings compatible with acute appendicitis as described above. Tip of the appendix extends into the RIGHT lower pelvis anteriorly. 2. No evidence of drainable abscess or fluid collection. 3. Small amount of free fluid in the cul-de-sac. 4. Peripherally enhancing LEFT ovarian cyst or corpus luteum cyst measuring 15 mm. 5. No other acute findings. Notified CRISTA Wang at 08/09/2021 9:03 AM.
[2021-08-09] MEDS: ketorolac 30 mg/mL INJ IVP ×2 (08:20→15:44)
[2021-08-09] MEDS: iohexol 300 mg/mL 100 mL Btl IV (08:29)
--- NOTE | 2021-08-09 09:25 | PM.HP ---
Providers/Chief Complaint Admitting Physician: General Surgery Hamlet Rankin MD Chief Complaint: Rt side of abd pain with vomiting History of Present Illness Jennifer Hong is a 21 year old female who began having some periumbilical pain Friday evening (today is morning). Over the last couple of days she said the pain has intensified and moved into the right lower quadrant. She has had some nausea and vomiting. She does not know that she has run any fevers with certainty but she has had hot flashes. She had a little bit of diarrhea at home, as well. No one else at home is ill. She has had a right ovarian cyst in the past. She came in the emergency room and a CAT scan showed changes consistent with acute appendicitis. Review of Systems General: Reports: 10 or more systems reviewed and unremarkable except in HPI and below Const: Reports: fever(s) (?) GI: Reports: abdominal pain, nausea, vomiting and diarrhea Psych: Reports: anxiety Medications/Allergies Home Medications Medication Instructions Recorded Confirmed Last Taken Type albuterol sulfate 90 mcg/actuation 2 inh INHALATION Q4H PRN #18 gm 06/28/20 08/09/21 Unknown Rx aerosol inhaler escitalopram oxalate 5 mg tablet 5 mg PO DAILY 08/09/21 08/09/21 08/08/21 History (Lexapro) [id number] fumarate 18 1 tab-cap PO DAILY 08/09/21 08/09/21 08/08/21 History mg-FA 600 mcg-vit K 40 mcg capsule (Multi For Her) Allergies Allergy/AdvReac Type Severity Reaction Status Date / Time morphine Allergy ALGY-Anaphy Verified 08/09/21 09:34 laxis coconut AdvReac Mild rash and Verified 08/09/21 09:28 anaphylaxis symptoms PFSH Acute PFSH: Medical History (Updated 08/09/21 @ 09:31 by Hamlet Rankin MD) Anxiety Asthma Chronic migraine without aura, intractable, with status migrainosus Surgical History H/O tympanostomy (~2001) S/P tonsillectomy (~2004) Age 5. Performed by [address] Lombardo at [facility] Family History Mother Diabetes Hyperlipidemia Hypertension Stroke CAD (coronary artery disease) Social History Smoking and tobacco status: never smoked Alcohol intake: never History of recent travel: No Female Reproductive History: Date of last menstrual period: 09/16/20 Vitals/I&O/Wt Last Vital Signs Temp 98.2 F 08/09/21 07:17 Pulse 62 08/09/21 09:11 Resp 16 08/09/21 07:17 BP 106/64 08/09/21 09:19 Pulse Ox 100 08/09/21 09:11 Weight last 48 hrs Weight 140 lb Physical Exam Narrative: The patient was encountered in her room in the emergency department. She is in somewhat of a position on her left side. She was able lay flat when I asked her to. Her pupils are equal. No neck masses are palpated. The lungs are clear. The heart is regular. The abdomen reveals some bowel sounds but may be somewhat hypoactive. She has her maximum point of tenderness over McBurney's point or perhaps just slightly lower in the right lower quadrant. Rovsing's sign is positive. No obvious masses are palpated. The extremities reveal no edema. Neurologically the patient is grossly intact. Data : 08/09/21 07:33 08/09/21 07:33 Other Labs: Laboratory Tests 08/09/21 07:33 HCG, Qual Negative CT Abd/Pel: Radiologist's impression: CT abdomen/pelvis 08/09/2021 IMPRESSION: ? 1.? Findings compatible with acute appendicitis as described above. Tip of the appendix extends into the RIGHT lower pelvis anteriorly. 2.? No evidence of drainable abscess or fluid collection. 3.? Small amount of free fluid in the cul-de-sac. 4.? Peripherally enhancing LEFT ovarian cyst or corpus luteum cyst measuring 15 mm. 5.? No other acute findings. A&P Assessment and plan (1) Acute appendicitis: CAT scan reviewed. I agree with the assessment of acute appendicitis. I discussed appendicitis with the patient in some detail. We discussed both conservative and surgical methods of management. We discussed both laparoscopic and open techniques of surgery. Surgical risks of bleeding, infection, internal organ injury, etc. were all gone over. The patient seems understand, and is leaning towards having surgery but is awaiting her mother's arrival at the hospital before making a final decision. I will check back with them shortly and we will proceed with an appendectomy if a desire. Status: Acute Attestations Medical Necessity Statement*: Based on my medical assessment, presenting symptoms and consideration of the scope of surgical therapy, I expect this patient will require treatment in the hospital for a period of time spanning less than 2 midnights, and therefore will placed in observation status if they end up deciding to seek treatment at our facility. Coding Level of Care Code Acute Assistant Designer for Ester Whatley Diagnoses Acute appendicitis K35.80
[2021-08-09] MEDS: lactated ringers 1,000 ML 150 ML IV (09:41)
--- NOTE | 2021-08-09 10:21 | P.ANESASSM_ITS ---
Pre-Anesthetic Assessment Height/Weight: Height 1.7 m Weight 63.503 kg Temp Pulse Resp BP Pulse Ox 98.2 F 62 16 106/64 100 08/09/21 07:17 08/09/21 09:11 08/09/21 07:17 08/09/21 09:19 08/09/21 09:11 Operation Date: 08/09/21 11:30 Proposed Procedures p Laparoscopic Appendectomy(Not Applicable) - Hamlet Rankin MD Familial anesthetic complications: None Was Beta Li taken within 24 hours: N/A Was Clonidine taken within 24 hours: N/A Last intake: > 8hrs, vomited bile at 0600 or 0700 this morning Social No alcohol and No tobacco Exam alert, oriented x 3, clear to auscultation bilaterally and regular rate & rhythm Airway Mallampati: Class I Dentition: chipped Pulmonary Asthma Anesthetic Plan ASA status: 2 Anesthesia: General Risk of > 500 ml blood loss (7ml/kg in children): No Medications/Allergies Home Medications Medication Instructions Recorded Confirmed Last Taken Type albuterol sulfate 90 mcg/actuation 2 inh INHALATION Q4H PRN #18 gm 06/28/20 08/09/21 Unknown Rx aerosol inhaler escitalopram oxalate 5 mg tablet 5 mg PO DAILY 08/09/21 08/09/21 08/08/21 History (Lexapro) [id number] fumarate 18 1 tab-cap PO DAILY 08/09/21 08/09/21 08/08/21 History mg-FA 600 mcg-vit K 40 mcg capsule (Multi For Her) Allergies Allergy/AdvReac Type Severity Reaction Status Date / Time morphine Allergy ALGY-Anaphy Verified 08/09/21 09:34 laxis coconut AdvReac Mild rash and Verified 08/09/21 09:28 anaphylaxis symptoms Current Medications Generic Name Dose Route Start Last Admin Trade Name Freq PRN Reason Stop Dose Admin Lactated Ringer's 1,000 mls @ 150 mls/hr 08/09/21 09:45 08/09/21 09:41 Lactated Ringers IV 150 mls/hr .[id number] MARISSA Administration PFSH Anesthesia Medical History (Updated 08/09/21 @ 09:31 by Hamlet Rankin MD) Anxiety Asthma Chronic migraine without aura, intractable, with status migrainosus Surgical History H/O tympanostomy (~2001) S/P tonsillectomy (~2004) Age 5. Performed by [address] Lombardo at [facility] Family History Mother Diabetes Hyperlipidemia Hypertension Stroke CAD (coronary artery disease) Social History Smoking and tobacco status: never smoked Alcohol intake: never History of recent travel: No Female Reproductive History Date of last menstrual period: 09/16/20 Data Anesthesia : 08/09/21 07:33 08/09/21 07:33 Short CBC 08/09/21 Range/Units 07:33 WBC 14.1 H (4.0-10.0) 10^3/uL Hgb 13.9 (11.5-15.3) g/dL Hct 41.1 (37.0-47.0) % MCV 93.4 (81-99) fl Plt Count 276 (130-400) 10^3/cmm Neut % (Auto) 82.1 % Neut # (Auto) 11.55 H (1.8-7.7) 10^3/uL BMP 08/09/21 07:33 Sodium 139 Potassium 3.9 Chloride 103 Carbon Dioxide 25 BUN 9 Creatinine 0.5 Glucose 104 Calcium 9.7 Liver Function 08/09/21 Range/Units 07:33 Total Bilirubin 0.7 (0.15-1.2) mg/dL AST 13 (0-32) U/L ALT 12 (0-33) U/L Alkaline Phosphatase 47 (35-105) IU/L Albumin 4.5 (3.5-5.2) g/dL Urine 08/09/21 Range/Units 07:35 Urine Color Yellow (Yellow) Urine Appearance Clear (CLEAR) Urine pH 7 (5-7) Ur Specific [place] 1.015 (1.005-1.030) Urine Protein Neg (Negative) Urine Glucose (UA) Norm (Normal) Urine Ketones 1+ H (Negative) Urine Nitrate Negative (Negative) Urine Bilirubin Neg (Negative) Ur Leukocyte Esterase Negative (Negative) Urine RBC 15-25 H (0-2) /hpf Urine WBC 0-4 H (0-5) /hpf Cardiac Studies: Echocardiogram Ultrasound 10/18/20
[2021-08-09] MEDS: sodium chloride 0.9% 1,000 ML 30 ML IV (10:35)
[2021-08-09] MEDS: metroNIDAZOLE IV 500 MG/100 ML PREMIX 100 MG IV (10:55)
--- NOTE | 2021-08-09 11:34 | P.OP_ITS ---
Operative Report Date of procedure: August 09, 2021 Pre-op diagnosis: Acute appendicitis. Post-op diagnosis: Same. Procedure done: Laparoscopic appendectomy. Specimens removed/disposition: Appendix. Surgeon: General Surgery Hamlet Rankin MD Estimated blood loss: 25 mL. Complications: None. Procedure: The patient was brought to the Operating Room and was placed in a supine position on the operating room table. General endotracheal anesthesia was induced. The abdomen was prepped and draped in a sterile fashion. A small vertical incision was carried out in the inferior aspect of the umbilicus. Blunt dissection was carried out down to the fascia, which was grasped with a Arlen clamp. A stay suture of 0 Vicryl was placed on either side of the midline and the midline fascia was incised. The underlying peritoneum was opened bluntly and the Mario port was placed directly into the peritoneal cavity and was held in place with the inflatable balloon. The peritoneal cavity was insufflated with carbon dioxide. The laparoscope was used to inspect the peritoneal cavity. There was a protruding tubular structure in the right lower quadrant underneath some omentum that eventually turned out but the be the appendix. No other gross abnormalities were initially noted. Two 5-millimeter ports were placed in the left lower quadrant under direct vision. The patient was tilted in a Trendelenburg position and slightly to the left side. A laparoscopic [place] was used to elevate the cecum and the appendix was identified. The appendix was dilated and inflamed throughout its length. There was no evidence of gross perforation. The mesoappendix was significantly edematous. The appendix was freed using blunt dissection and was then elevated. The mesoappendix was divided using cautery to maintain hemostasis at the base of the appendix. The appendiceal artery bled for a little while before it could be secured with cautery. Every time we tried a stick the camera back in some blood got on the end of the camera so it took some time to get this adequately treated. The base of the appendix appeared healthy and was divided using an endoscopic stapler. The appendix was removed from the peritoneal cavity after being placed in a laparoscopic bag. The right lower quadrant and pelvis were irrigated. The staple line on the cecum was identified and appeared to be in good condition. The Mario port was removed from the umbilical site and the stay sutures of Vicryl were tied to each other at the umbilicus, closing the fascial defect so that it was airtight. A final round of irrigation was carried out in the right lower quadrant and the pelvis. No ongoing problems were seen. The remaining ports were removed from the abdominal wall as the pneumoperitoneum was evacuated. All skin incisions were closed using inverted interrupted sutures of 4-0 Vicryl. Benzoin and Steri-Strips were placed over the incisions and Band- Aids followed. The patient was taken to the Recovery Room in stable condition postoperatively.
[2021-08-09] MEDS: meperidine 50 mg/mL INJ 12.5 MG IVP (11:59)
[2021-08-09] MEDS: ondansetron 2 mg/ML SDV 2 mL 4 MG IVP (12:17)
[2021-08-09] MEDS: HYDROcodone-acetaminophen 5-325 mg Tablet PO ×3 (13:26→23:39)
[2021-08-09] MEDS: escitalopram 10 mg Tablet 5 MG PO (13:26)
[2021-08-09] MEDS: D5-NS 0.45% + KCL 20 mEq 20 MEQ/1,000 ML BAG 100 MEQ IV ×2 (13:27→23:39)
[2021-08-09] MEDS: ceFAZolin 1,000 MG in sodium chloride 0.9% (plus) 50 ML 100 MG IV (18:34)
[2021-08-09 21:19] LABS: Glucose Point of Care 190 mg/dL (70-110)
[2021-08-10] VITALS: BP 103/60; PULSE 77; RESP 17; TEMP 36.6; O2SAT 97
[2021-08-10] MEDS: ceFAZolin 1,000 MG in sodium chloride 0.9% (plus) 50 ML 100 MG IV (01:36)
[2021-08-10 04:31] VITALS: BP 98/60; PULSE 64; RESP 16; TEMP 36.8; O2SAT 97
[2021-08-10] MEDS: HYDROcodone-acetaminophen 5-325 mg Tablet PO (04:53)
[2021-08-10 08:03] VITALS: PULSE 78; RESP 18; O2SAT 97
--- NOTE | 2021-08-10 08:48 | P.DS_ITS ---
Discharge Providers Date of Admission: 08/09/21 12:39 Date of Discharge: August 10, 2021 Attending Provider at Admission: Hamlet Rankin MD Attending Provider at Discharge: Hamlet Rankin MD Diagnoses at Discharge Discharge Diagnosis (1) Acute appendicitis: Status: Acute Reason for Visit Reason for Visit: Rt side of abd pain with vomiting Hospital Course Hospital Course This is a [age]-year-old white female who developed abdominal pain 2 to 3 days prior presentation. A CAT scan showed changes consistent with appendicitis. She underwent a laparoscopic appendectomy the same day of presentation. By the following morning she was already feeling much better, was tolerating a solid diet, passing flatus, etc. Her vital signs were stable and she was afebrile. She was anxious to go home. She was instructed with respect to wound care, activity limitations, diet, etc. Arrangements will be made for her at a follow- up in my office as an outpatient. Physical Exam Narrative: Postop day #1: Patient is afebrile. Abdomen reveals bowel sounds. Laparoscopic incisions look good. Discharge Data Studies Completed and Pending Completed Studies During Hospitalization Category Date Time Status CT abdomen pelvis w con* [id number] Stat Cat Scan 08/09/21 08:16 Completed Pending at discharge Category Date Time Status Pathology: Surgical [PTH] Routine Pth 08/09/21 11:46 Received Radiology Impressions Abdomen/Pelvis CT 08/09/21 08:16 IMPRESSION: 1. Findings compatible with acute appendicitis as described above. Tip of the appendix extends into the RIGHT lower pelvis anteriorly. 2. No evidence of drainable abscess or fluid collection. 3. Small amount of free fluid in the cul-de-sac. 4. Peripherally enhancing LEFT ovarian cyst or corpus luteum cyst measuring 15 mm. 5. No other acute findings. Notified CRISTA Wang at 08/09/2021 9:03 AM. Laboratory Results WBC 14.1 10^3/uL (4.0-10.0) H 08/09/21 07:33 RBC 4.40 10^6/uL (4.1-5.3) 08/09/21 07:33 Hgb 13.9 g/dL (11.5-15.3) 08/09/21 07:33 Hct 41.1 % (37.0-47.0) 08/09/21 07:33 MCV 93.4 fl (81-99) 08/09/21 07:33 MCH 31.6 pg (28.0-34.0) 08/09/21 07: MCHC 33.8 g/dL (30.0-36.0) 08/09/21 07:33 RDW 11.7 % (12.1-15.1) L 08/09/21 07:33 Plt Count 276 10^3/cmm (130-400) 08/09/21 07:33 MPV 9.8 fL (7.4-10.4) 08/09/21 07:33 Neut % (Auto) 82.1 % 08/09/21 07:33 Lymph % (Auto) 10.4 % 08/09/21 07:33 [place] % (Auto) 5.9 % 08/09/21 07:33 Eos % (Auto) 0.8 % 08/09/21 07:33 Baso % (Auto) 0.4 % 08/09/21 07:33 Neut # (Auto) 11.55 10^3/uL (1.8-7.7) H 08/09/21 07:33 Lymph # (Auto) 1.5 10^3/uL (0.8-4.8) 08/09/21 07:33 [place] # (Auto) 0.8 10^3/uL (0.2-0.9) 08/09/21 07:33 Eos # (Auto) 0.1 10^3/uL (0.0-0.8) 08/09/21 07:33 Baso # (Auto) 0.1 10^3/uL (0.0-0.1) 08/09/21 07:33 Nucleated RBC % (auto) 0 % 08/09/21 07:33 Nucleated RBCs # 0.0 /100WBC 08/09/21 07:33 Sodium 139 mmol/L (136-145) 08/09/21 07:33 Potassium 3.9 mmol/L (3.5-5.1) 08/09/21 07:33 Chloride 103 mmol/L (98-107) 08/09/21 07:33 Carbon Dioxide 25 mmol/L (22-29) 08/09/21 07:33 Anion Gap 14.9 (5-19) 08/09/21 07:33 BUN 9 mg/dL (6-20) 08/09/21 07:33 Creatinine 0.5 mg/dL (0.5-0.9) 08/09/21 07:33 GFR Calculation 154.3 mL/min (90-130) H 08/09/21 07:33 Glucose 104 mg/dL (65-115) 08/09/21 07:33 POC Glucose 190 mg/dL (70-110) H 08/09/21 21:12 Calculated Osmolality 287 mOsm/kg (285-295) 08/09/21 07:33 Calcium 9.7 mg/dL (8.5-10.5) 08/09/21 07:33 Total Bilirubin 0.7 mg/dL (0.15-1.2) 08/09/21 07:33 AST 13 U/L (0-32) 08/09/21 07:33 ALT 12 U/L (0-33) 08/09/21 07:33 Alkaline Phosphatase 47 IU/L (35-105) 08/09/21 07:33 Total Protein 7.7 g/dL (6.6-8.7) 08/09/21 07:33 Albumin 4.5 g/dL (3.5-5.2) 08/09/21 07:33 Globulin 3.2 g/dL (1.3-4.6) 08/09/21 07:33 Lipase 12 U/L (13-60) L 08/09/21 07:33 HCG, Qual Negative (Negative) 08/09/21 07:33 Urine Color Yellow (Yellow) 08/09/21 07:35 Urine Appearance Clear (CLEAR) 08/09/21 07:35 Urine pH 7 (5-7) 08/09/21 07:35 Ur Specific [place] 1.015 (1.005-1.030) 08/09/21 07:35 Urine Protein Neg (Negative) 08/09/21 07:35 Urine Glucose (UA) Norm (Normal) 08/09/21 07:35 Urine Ketones 1+ (Negative) H 08/09/21 07:35 Urine Blood 3+ (Negative) H 08/09/21 07:35 Urine Nitrate Negative (Negative) 08/09/21 07:35 Urine Bilirubin Neg (Negative) 08/09/21 07:35 Urine Urobilinogen 1 mg/dL (Negative) H 08/09/21 07:35 Ur Leukocyte Esterase Negative (Negative) 08/09/21 07:35 Urine RBC 15-25 /hpf (0-2) H 08/09/21 07:35 Urine WBC 0-4 /hpf (0-5) H 08/09/21 07:35 Ur Squamous Epith Cells 10-15 /hpf (0-5) H 08/09/21 07:35 Amorphous Sediment Not Reportable 08/09/21 07:35 Urine Bacteria 1+ /hpf (NONE) H 08/09/21 07:35 Urine Mucus 2+ /hpf 08/09/21 07:35 Vitals Last Vital Signs Temp 98.3 F 08/10/21 04:31 Pulse 78 08/10/21 08:03 Resp 18 08/10/21 08:03 BP 98/60 08/10/21 04:31 Pulse Ox 97 08/10/21 08:03 Discharge Plan Discharge Patient Disposition: Home Condition: Stable Prescriptions: New hydrocodone-acetaminophen 5-325 mg tablet 1 - 2 tab PO Q5H PRN (Reason: pain) Qty: 30 0RF Continued albuterol sulfate 90 mcg/actuation HFA aerosol inhaler 2 inh INHALATION Q4H PRN (Reason: shortness of breath or wheezing) Qty: 18 0RF Lexapro 5 mg tablet 5 mg PO DAILY 0RF Multi For Her 18 mg iron-600 mcg-40 mcg Capsule 1 tab-cap PO DAILY 0RF Discharge Orders: Discharge Order (Routine); Ordered 08/10/21 Ordered By: Hamlet Rankin Referrals: Hamlet Rankin MD [Physician] - 2 weeks (Nursing: Please call Dr. Rankin's office ([phone]) and make an appointment for the patient to be seen in 10-14 days.) Discharge Diet: Advance as tolerated Discharge Activity: Limit activity as instructed Activity Restrictions/Additional Instructions: 1. Discharge to home today. 2. Appointment to see Dr. Rankin in 10-14 days. 3. Bandaids off later today, leave Steri-Strip(s) on, may shower. 4. [place] 5/325 1-2 tablets by mouth every 5 hours as needed for pain. #30, no refills. No lifting over 20 pounds, no repetitive bending or twisting, no strenuous pushing / pulling or other heavy activity. Ambulate regularly. May go up and down steps if needed. Discharge Attestations Time Spent in Discharge Care*: less than 30 min Quality Metrics Clinical Quality Measures [ No reported AMI, CVA or VTE this stay] Coding Level of Care Code Acute g [facility] note Diagnoses Acute appendicitis K35.80
[2021-08-10] MEDS: escitalopram 10 mg Tablet 5 MG PO (09:22)
[2021-08-10] MEDS: D5-NS 0.45% + KCL 20 mEq 20 MEQ/1,000 ML BAG 100 MEQ IV (09:24)
[2021-08-10 09:37] VITALS: BP 113/66; PULSE 81; RESP 17; TEMP 36.8; O2SAT 99
--- NOTE | 2021-08-10 10:53 | PC.NURSE ---
Went over discharge paperwork, medications and follow up appointment to call. Verbalized understanding.
[2021-08-10 10:55] VITALS: BP 113/66; PULSE 81; RESP 17; TEMP 36.8; O2SAT 99
== END 2021-08-10 10:57 | disposition home or self-care (01) ==
LOC: ER 09:58 → OPS 10:07 → MEDSURG 12:40
PROVIDERS: Admitting Provider Surgery; Emergency Provider Nurse Practitioner Family; Visit Provider Surgery
PROC: 0DTJ4ZZ Resection of Appendix, Percutaneous Endoscopic Approach (ICD-10-PCS; CPT 44970; principal; 2021-08-09 11:30)
DX: K35.80 Unspecified acute appendicitis (principal); F41.9 Anxiety disorder, unspecified; J45.909 Unspecified asthma, uncomplicated
CPT/HCPCS: 36416; 74177; 80053; 81001; 81025; 82962; 83690; 85025; 88304; 96365; 96375; 99285; G0378; J0330; J0690; J1100; J1200; J1885; J2175; J2250; J2405; J2765; J3010; J3490; J7030; Q9967; S0030

== ENCOUNTER 2021-11-02 14:12 | Emergency (ER) | payer MEDICAID, SELFPAY ==
[2021-11-02 14:51] VITALS: BP 126/77; PULSE 66; RESP 12; TEMP 37.1; O2SAT 98; BMI 20.3
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
[2021-11-02 15:13] LABS: HCG Qualitative Urine. Negative (Negative)
[2021-11-02 15:32] LABS: Glucose Urine UA Norm (Normal); Ketones Urine Negative (Negative); Protein Urine Neg (Negative); Specific Gravity, Urine 1.025 (1.005-1.030); Urine Appearance Clear (CLEAR); Urine Color Yellow (Yellow); pH Urine 5 (5-7)
[2021-11-02 15:33] LABS: Add Urine Culture? Yes; Add Urine Microscopic? YES; Bilirubin Urine Neg (Negative); Blood Urine 3+ (Negative); Calcium Oxalate Crystals Urine 1 /hpf; Leukocyte Esterase Urine Negative (Negative); Mucus Urine 2+ /hpf; Nitrate Urine Negative (Negative); RBC Urine 25-40 /hpf (0-2); Urobilinogen Urine Norm (Negative)
== END 2021-11-02 16:42 | disposition home or self-care (01) ==
PROVIDERS: Emergency Provider Nurse Practitioner Family
DX: S09.90XA Unspecified injury of head, initial encounter (principal); R07.89 Other chest pain; V49.50XA Passenger injured in collision with unspecified motor vehicles in traffic accident, initial encounter; Y92.410 Unspecified street and highway as the place of occurrence of the external cause
CPT/HCPCS: 70450; 71101; 81001; 81025; 87086; 99283

== ENCOUNTER 2021-11-05 10:49 | Emergency (ER) | payer MEDICAID, SELFPAY ==
[2021-11-05 10:59] VITALS: BP 106/59; PULSE 68; RESP 16; TEMP 36.8; O2SAT 97; BMI 20.3
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
== END 2021-11-05 11:57 | disposition home or self-care (01) ==
PROVIDERS: Emergency Provider Physician Assistant
DX: Z04.1 Encounter for examination and observation following transport accident (principal); S09.90XD Unspecified injury of head, subsequent encounter; V89.2XXD Person injured in unspecified motor-vehicle accident, traffic, subsequent encounter; H92.21 Otorrhagia, right ear; R42 Dizziness and giddiness; R51.9 Headache, unspecified
CPT/HCPCS: 99282

== ENCOUNTER → 2022-05-01 10:52 | Outpatient (BNVA) | payer OTHER, MEDICAID, SELFPAY | PROVIDERS: Visit Provider Registered Nurse Neonatal Intensive Care | DX: R50.9 Fever, unspecified (principal); B34.9 Viral infection, unspecified | CPT/HCPCS: 87400 ==

== ENCOUNTER 2022-05-15 05:53 | Emergency (ER) | payer OTHER, MEDICAID, SELFPAY ==
[2022-05-15 05:55] VITALS: BP 109/66; PULSE 72; RESP 18; TEMP 36.6; O2SAT 100; BMI 20.5
[2022-05-15 06:13] VITALS: BP 120/75; PULSE 72; RESP 16; TEMP 36.8; O2SAT 100
--- NOTE | 2022-05-15 06:27 | XR_ITS ---
WS: [id number] Portable AP upright chest, 05/15/2022 Clinical Data: dyspnea/cough Comparison: PA chest, 11/02/2021 Findings: No nodules, masses or effusions are seen. The heart is normal. The pulmonary vascularity is not increased. No pneumonia or pneumothorax is seen. XR/XR chest 1V portable [id number] Impression: Negative chest.
--- NOTE | 2022-05-15 06:37 | W.ED.NAVMDI ---
HPI - Nausea/Vomiting/Diarrhea General: Chief complaint: Nausea/Vomiting/Diarrhea Stated complaint: N/V Time Seen by Provider: 05/15/22 06:26 Source: patient Mode of arrival: ambulatory History of Present Illness: 22-year-old female presents to the emergency room with complaints of nausea vomiting and diarrhea. Patient also complaining of some mild left lower quadrant pain no guarding or rebound no dysuria urgency or frequency. 2 weeks ago she had flulike upper respiratory symptoms those have resolved. She denies any hematochezia has had a few small flecks of blood with vomiting on a couple of occasions but no significant amounts of blood MD elicited complaint: nausea, vomiting and diarrhea Onset (ago): hour(s) Description of vomiting: watery and bilious Associated nausea: Yes Associated abdominal pain: Yes Location of pain: LLQ Pain consistency: intermittent Severity: mild Quality: cramping Exacerbating factors: none Relieving factors: none Associated symtoms: Reports nausea; Denies altered mental status, anxiety, bloating, change in vision, chest pain, cough, diaphoresis, decreased urine output, dizziness, dysuria, epistaxis, fatigue, fecal incontinence, fevers/chills, headache(s), anorexia, malaise, myalgias, numbness, palpitations, rash, short of breath, syncope, tenesmus, tinnitus or weakness Review of Systems Const: Denies: fever(s), chills, fatigue, malaise or diaphoresis Eyes: Denies: change in vision ENMT: Denies: throat pain, ear or mastoid pain, tinnitus or epistaxis Card: Denies: chest pain, palpitations or syncope Resp: Denies: dyspnea, productive cough or non-productive cough GI: Reports: abdominal pain, nausea, vomiting and diarrhea; Denies: bloating or fecal incontinence : Denies: flank pain, dysuria, urinary frequency or urinary urgency Musc: Denies: neck pain or back pain Skin/Breast: Denies: rash or pruritus Neuro: Denies: headache(s) or dizziness Psych: Denies: anxiety PFSH ED PFSH: Medical History Acute pharyngitis Anxiety Asthma Chronic migraine without aura, intractable, with status migrainosus Surgical History H/O tympanostomy (~2001) S/P tonsillectomy (~2004) Age 5[address]formed by [address] Lombardo at [facility] Family History Mother Diabetes Hyperlipidemia Hypertension Stroke CAD (coronary artery disease) Social History Smoking and tobacco status: never smoked Alcohol intake: never History of recent travel: No Female Reproductive History: Date of last menstrual period: 09/16/20 Physical Exam Const: EXAM LIMITATIONS: no altered mental status GENERAL APPEARANCE: cooperative and comfortable ORIENTATION/CONSCIOUSNESS: Yes awake, Yes oriented to person, Yes oriented to place and Yes oriented to time HENMT: COMMON NORMALS: normocephalic, atraumatic and hearing grossly normal bilaterally HEAD & SCALP: normocephalic and atraumatic Resp: COMMON NORMALS: normal respiratory effort, No retractions, No use of accessory muscles and clear to auscultation bilaterally AUSCULTATION: clear to auscultation bilaterally Cardio: COMMON NORMALS: regular rate, regular rhythm and No murmurs present (Cardio) RATE: regular rate RHYTHM: regular rhythm GI: COMMON NORMALS: Soft to palpation and No hepatosplenomegaly present AUSCULTATION: Yes normoactive bowel sounds PALPATION: Yes Soft to palpation, No Tenderness to palpation present (GI), No Guarding due to palpation present (GI) and Yes No hepatosplenomegaly present Extremity: COMMON NORMALS: normal to inspection, capillary refill normal, no clubbing, cyanosis or edema, no calf tenderness and no pedal edema Neuro: SENSORIUM/ORIENTATION: Yes oriented to person, Yes oriented to place and Yes oriented to time Skin: COMMON NORMALS: no rashes or lesions noted GENERAL SKIN EXAM: no rashes or lesions noted Course Vital Signs: Vital signs: Vital Signs Temperature 98.2 F 05/15/22 06:13 Pulse Rate 62 05/15/22 06:39 Respiratory Rate 14 05/15/22 06:39 Blood Pressure 119/77 05/15/22 06:39 Pulse Oximetry 99 05/15/22 06:39 Oxygen Delivery Me thod 05/15/22 06:13 MDM - Nausea/Vomiting/Diarrhea Medical Decision Making Improved with IV fluids. Labs reviewed no significant abnormalities. UA is negative showed occult blood on the dip but was negative on the micro. She not having urinary tract symptoms. We will discharge patient home clear liquid diet advance as tolerated ondansetron as needed Medical Records I reviewed the patient's medical records. Lab Data I reviewed the patient's lab results. 05/15/22 06:23 05/15/22 06:23 Radiology Impressions Chest X-Ray 05/15/22 06:27 Impression: Negative chest. Laboratory Results WBC 9.5 10^3/uL (4.0-10.0) 05/15/22 06:23 RBC 4.32 10^6/uL (4.1-5.3) 05/15/22 06:23 Hgb 13.7 g/dL (11.5-15.3) 05/15/22 06:23 Hct 41.8 % (37.0-47.0) 05/15/22 06:23 MCV 96.8 fl (81-99) 05/15/22 06:23 MCH 31.7 pg (28.0-34.0) 05/15/22 06:23 MCHC 32.8 g/dL (30.0-36.0) 05/15/22 06:23 RDW 11.9 % (12.1-15.1) L 05/15/22 06:23 Plt Count 262 10^3/cmm (130-400) 05/15/22 06:23 MPV 10.0 fL (7.4-10.4) 05/15/22 06:23 Neut % (Auto) 44.1 % 05/15/22 06:23 Lymph % (Auto) 44.7 % 05/15/22 06:23 [place] % (Auto) 7.1 % 05/15/22 06:23 Eos % (Auto) 3.3 % 05/15/22 06:23 Baso % (Auto) 0.6 % 05/15/22 06:23 Neut # (Auto) 4.19 10^3/uL (1.8-7.7) 05/15/22 06:23 Lymph # (Auto) 4.3 10^3/uL (0.8-4.8) 05/15/22 06:23 [place] # (Auto) 0.7 10^3/uL (0.2-0.9) 05/15/22 06:23 Eos # (Auto) 0.3 10^3/uL (0.0-0.8) 05/15/22 06:23 Baso # (Auto) 0.1 10^3/uL (0.0-0.1) 05/15/22 06:23 Nucleated RBC % (auto) 0 % 05/15/22 06:23 Nucleated RBCs # 0.0 /100WBC 05/15/22 06:23 Sodium 137 mmol/L (136-145) 05/15/22 06:23 Potassium 3.7 mmol/L (3.5-5.1) 05/15/22 06:23 Chloride 104 mmol/L (98-107) 05/15/22 06:23 Carbon Dioxide 25 mmol/L (22-29) 05/15/22 06:23 Anion Gap 11.7 (5-19) 05/15/22 06:23 BUN 11 mg/dL (6-20) 05/15/22 06:23 Creatinine 0.6 mg/dL (0.5-0.9) 05/15/22 06:23 GFR Calculation 123.9 mL/min (90-130) 05/15/22 06:23 Glucose 80 mg/dL (65-115) 05/15/22 06:23 Calculated Osmolality 282 mOsm/kg (285-295) L 05/15/22 06:23 Calcium 9.1 mg/dL (8.5-10.5) 05/15/22 06:23 Total Bilirubin 0.3 mg/dL (0.15-1.2) 05/15/22 06:23 AST 14 U/L (0-32) 05/15/22 06:23 ALT 12 U/L (0-33) 05/15/22 06:23 Alkaline Phosphatase 41 U/L (35-105) 05/15/22 06:23 Total Protein 7.3 g/dL (6.6-8.7) 05/15/22 06:23 Albumin 4.5 g/dL (3.5-5.2) 05/15/22 06:23 Globulin 2.8 g/dL (1.3-4.6) 05/15/22 06:23 HCG, Qual Negative (Negative) 05/15/22 06:23 Urine Color Yellow (Yellow) 05/15/22 07:34 Urine Appearance Sl hazy (CLEAR) A 05/15/22 07:34 Urine pH 5 (5-7) 05/15/22 07:34 Ur Specific [place] 1.025 (1.005-1.030) 05/15/22 07:34 Urine Protein Neg (Negative) 05/15/22 07:34 Urine Glucose (UA) Norm (Normal) 05/15/22 07:34 Urine Ketones Negative (Negative) 05/15/22 07:34 Urine Blood 2+ (Negative) H 05/15/22 07:34 Urine Nitrate Negative (Negative) 05/15/22 07:34 Urine Bilirubin Neg (Negative) 05/15/22 07:34 Urine Urobilinogen Norm mg/dL (Negative) 05/15/22 07:34 Ur Leukocyte Esterase Negative (Negative) 05/15/22 07:34 Urine RBC None /hpf (0-2) 05/15/22 07:34 Urine WBC None /hpf (0-5) 05/15/22 07:34 Ur Squamous Epith Cells 5-10 /hpf (0-5) H 05/15/22 07:34 Amorphous Sediment Not Reportable 05/15/22 07:34 Urine Bacteria Trace /hpf (NONE) 05/15/22 07:34 Discharge Plan Discharge Patient Disposition: Home Clinical Impression: Gastroenteritis Condition: Stable Prescriptions: New ondansetron HCl 4 mg tablet 4 mg PO Q6H PRN (Reason: nausea and vomiting) Qty: 20 0RF No Action sertraline 150 mg capsule 150 mg PO DAILY albuterol sulfate 90 mcg/actuation HFA aerosol inhaler 2 inh INHALATION Q4H PRN (Reason: shortness of breath or wheezing) Qty: 18 0RF Multi For Her 18 mg iron-600 mcg-40 mcg Capsule 1 tab-cap PO DAILY Discharge Orders: Discharge ED (Routine); Ordered 05/15/22 Ordered By: Mikhail Katz Discharge Diet: Clear Liquid Discharge Activity: Resume usual activity Activity Restrictions/Additional Instructions: You were seen today for nausea and vomiting. Laboratory work is unremarkable. Recommend that you continue with a clear liquid diet for 24 to 48 hours and advance as tolerated. Prescription for ondansetron for symptoms. Return to the ER if you have further problems. Coding Level of Care Code ED Employee Development Specialist for Chg Fwd Exam Detailed
[2022-05-15 06:39] VITALS: BP 119/77; PULSE 62; RESP 14; O2SAT 99
[2022-05-15] MEDS: ondansetron 2 mg/ML SDV 2 mL 4 MG IVP (06:40)
[2022-05-15] MEDS: sodium chloride 0.9% 1,000 ML 999 ML IV ×2 (06:41→08:07)
[2022-05-15 06:44] LABS: Basophils # 0.1 10^3/uL (0.0-0.1); Basophils % 0.6 %; Eosinophils # 0.3 10^3/uL (0.0-0.8); Eosinophils % 3.3 %; Hematocrit 41.8 % (37.0-47.0); Hemoglobin 13.7 g/dL (11.5-15.3); Lymphocytes # 4.3 10^3/uL (0.8-4.8); Lymphocytes % 44.7 %; Mean Corpuscular HGB Conc 32.8 g/dL (30.0-36.0); Mean Corpuscular Hemoglobin 31.7 pg (28.0-34.0); Mean Corpuscular Volume 96.8 fl (81-99); Monocytes # 0.7 10^3/uL (0.2-0.9); Monocytes % 7.1 %; Neutrophils # 4.19 10^3/uL (1.8-7.7); Neutrophils % 44.1 %; Nucleated Red Blood Cells % 0 %; Platelet Count 262 10^3/cmm (130-400); Red Blood Count 4.32 10^6/uL (4.1-5.3); Red Cell Distribution Width 11.9 % (12.1-15.1); White Blood Count 9.5 10^3/uL (4.0-10.0)
[2022-05-15 06:47] LABS: HCG, Serum Qual Negative (Negative)
[2022-05-15 06:53] LABS: Alanine Aminotransferase 12 U/L (0-33); Albumin Level 4.5 g/dL (3.5-5.2); Alkaline Phosphatase 41 U/L (35-105); Anion Gap 11.7 (5-19); Aspartate Amino Transferase 14 U/L (0-32); Blood Urea Nitrogen 11 mg/dL (6-20); Calcium 9.1 mg/dL (8.5-10.5); Carbon Dioxide 25 mmol/L (22-29); Chloride 104 mmol/L (98-107); Globulin 2.8 g/dL (1.3-4.6); Glomerular Filtration Rate 123.9 mL/min (90-130); Glucose 80 mg/dL (65-115); Osmolality Calculated 282 mOsm/kg (285-295); Potassium 3.7 mmol/L (3.5-5.1); Sodium 137 mmol/L (136-145); Total Bilirubin 0.3 mg/dL (0.15-1.2); Total Protein 7.3 g/dL (6.6-8.7)
[2022-05-15 08:11] LABS: Add Urine Microscopic? YES; Bilirubin Urine Neg (Negative); Blood Urine 2+ (Negative); Glucose Urine UA Norm (Normal); Ketones Urine Negative (Negative); Leukocyte Esterase Urine Negative (Negative); Nitrate Urine Negative (Negative); Protein Urine Neg (Negative); Specific Gravity, Urine 1.025 (1.005-1.030); Urine Appearance SL Hazy (CLEAR); Urine Color Yellow (Yellow); Urobilinogen Urine Norm (Negative); pH Urine 5 (5-7)
[2022-05-15 08:12] LABS: Add Urine Culture? Yes; Bacteria Urine TRACE /hpf
== END 2022-05-15 08:39 | disposition home or self-care (01) ==
PROVIDERS: Emergency Provider Family Medicine
DX: K52.9 Noninfective gastroenteritis and colitis, unspecified (principal)
CPT/HCPCS: 71045; 80053; 81001; 84703; 85025; 87086; 96361; 96374; 99284; J2405; J7030

== ENCOUNTER 2022-07-25 11:20 | Emergency (ER) | payer OTHER, MEDICAID, SELFPAY ==
[2022-07-25 11:49] VITALS: BP 112/72; PULSE 60; RESP 16; TEMP 36.7; O2SAT 100
[2022-07-25 12:32] LABS: Basophils # 0.1 10^3/uL (0.0-0.1); Basophils % 0.5 %; Eosinophils # 0.2 10^3/uL (0.0-0.8); Eosinophils % 1.2 %; Hematocrit 41.3 % (37.0-47.0); Hemoglobin 13.7 g/dL (11.5-15.3); Lymphocytes # 1.5 10^3/uL (0.8-4.8); Lymphocytes % 9.9 %; Mean Corpuscular HGB Conc 33.2 g/dL (30.0-36.0); Mean Corpuscular Hemoglobin 31.1 pg (28.0-34.0); Mean Corpuscular Volume 93.7 fl (81-99); Mean Platelet Volume 10.3 fL (7.4-10.4); Monocytes # 0.8 10^3/uL (0.2-0.9); Monocytes % 5.5 %; Neutrophils # 12.56 10^3/uL (1.8-7.7); Neutrophils % 82.6 %; Nucleated Red Blood Cells % 0 %; Platelet Count 302 10^3/cmm (130-400); Red Blood Count 4.41 10^6/uL (4.1-5.3); Red Cell Distribution Width 11.5 % (12.1-15.1); White Blood Count 15.2 10^3/uL (4.0-10.0)
--- NOTE | 2022-07-25 12:54 | ED_ITS ---
HPI - Abdominal Pain General: Chief Complaint: Abdominal Pain Stated Complaint: n/v Time Seen by Provider: 07/25/22 12:47 History of Present Illness: Patient is a 22-year-old female comes to the ED with abdominal pain nausea and vomiting. Symptoms started around 1 AM this morning. She has had multiple episodes of emesis and is currently nauseous here in the ED. Her abdominal pain is located around the periumbilical region and she rates it currently a 5 out of 10. Past surgical history of appendectomy. Endorses having fever and chills. She had 1 episode of diarrhea this morning. Denies any dysuria or hematuria. Associated Symptoms: Reports diarrhea, nausea and vomiting; Denies chills, constipation, dysuria, fever(s), hematochezia and hematuria Review of Systems Const: Denies: fever(s), chills or fatigue Eyes: Denies: change in vision or eye discomfort ENMT: Denies: throat pain, odynophagia, nasal discharge or nasal congestion Card: Denies: chest pain, palpitations, edema, swelling of feet/ankles, dyspnea on exertion or orthopnea Resp: Denies: dyspnea, productive cough or non-productive cough GI: Reports: abdominal pain, nausea, vomiting and diarrhea; Denies: constipation or hematochezia : Denies: flank pain, dysuria or hematuria Musc: Denies: neck pain, back pain or extremity swelling Skin/Breast: Denies: rash or new lesions Neuro: Denies: headache(s), numbness in extremities or weakness in extremities PFS ED PFSH: Medical History Acute pharyngitis Anxiety Asthma Chronic migraine without aura, intractable, with status migrainosus Surgical History H/O tympanostomy (~2001) S/P tonsillectomy (~2004) Age 5. Performed by [address] Lombardo at [facility] Family History Mother Diabetes Hyperlipidemia Hypertension Stroke CAD (coronary artery disease) Social History Smoking and tobacco status: never smoked Alcohol intake: never Physical Exam Const: COMMON NORMALS: patient oriented x3 and alert GENERAL APPEARANCE: cooperative HENMT: COMMON NORMALS: normocephalic HEAD & SCALP: normocephalic MOUTH: Normal oral and palatal mucosa present THROAT: posterior oropharynx normal and uvula midline Neck/C-Spine: COMMON NORMALS: supple GENERAL: Yes normal visual inspection Resp: COMMON NORMALS: normal respiratory effort, No retractions, No use of accessory muscles and clear to auscultation bilaterally AUSCULTATION: clear to auscultation bilaterally Cardio: COMMON NORMALS: regular rate, regular rhythm, S1 normal heart sound present, S2 normal heart sound present, No gallops present (Cardio), No clicks present (Cardio), No murmurs present (Cardio) and Peripheral pulses 2+ throughout RATE: regular rate RHYTHM: regular rhythm HEART SOUNDS: S1 normal heart sound present and S2 normal heart sound present PERIPHERAL PULSES: Peripheral pulses 2+ throughout GI: COMMON NORMALS: Normal to inspection, nondistended, normoactive bowel sounds present, Soft to palpation, non-tender and no masses PALPATION: Yes Soft to palpation and Yes Tenderness to palpation present (GI) (Periumbilical) : COMMON NORMALS: Yes no CVA tenderness BLADDER/KIDNEY EXAM: Yes no CVA tenderness Back/Pelvis: COMMON NORMALS: no CVA tenderness Extremity: COMMON NORMALS: normal to inspection Neuro: COMMON NORMALS: patient oriented x3 SENSORIUM/ORIENTATION: Yes alert GAIT: Yes Normal gait present Skin: GENERAL SKIN EXAM: dry skin Course Vital Signs: Vital signs: Vital Signs Temperature 98.0 F 07/25/22 11:49 Pulse Rate 75 07/25/22 15:30 Respiratory Rate 14 07/25/22 15:30 Blood Pressure 111/65 07/25/22 15:30 Pulse Oximetry 96 07/25/22 15:30 Oxygen Delivery Me thod 07/25/22 11:49 MDM - Abdominal Pain Medical Decision Making Patient is a 22-year-old female comes to the ED with abdominal pain nausea and vomiting. Symptoms started around 1 AM this morning. She has had multiple episodes of emesis and is currently nauseous here in the ED. Her abdominal pain is located around the periumbilical region and she rates it currently a 5 out of 10. Past surgical history of appendectomy. Endorses having fever and chills. She had 1 episode of diarrhea this morning. Denies any dysuria or hematuria. Vitals are stable. Patient appears nontoxic in no acute distress or pain. She has some mild generalized tenderness of the periumbilical region of abdomen. Rest of exam is benign. White blood cell count of 15.2 and the rest of CBC and CMP are unremarkable. hCG negative. UA was unremarkable. CT of abdomen pelvis showed no acute findings but did note a right right ovarian corpus luteal cyst. She was notified about her right ovarian cyst and that she needs to get that reevaluated by PCP or OB over the next 7 to 10 days. Patient was given a liter of IV fluids and nausea meds here in the ED and her symptoms improved and she is feeling a lot better. She was diagnosed with abdominal pain and stable for discharge home. She was sent home with a prescription for Zofran for nausea and told to follow-up with their PCP for reevaluation within the next week. Return to ED precautions given. Patient understood and agreed with plan. Lab Data I reviewed the patient's lab results. 07/25/22 12:05 07/25/22 12:05 Labs/Radiology: Radiology Impressions Abdomen/Pelvis CT 07/25/22 13:00 IMPRESSION: 1. Peripheral enhancing RIGHT corpus luteum cyst measuring 2.3 x 2.1 CM. Trace free fluid in the cul-de-sac. 2. Mild enlargement of the liver with periportal edema and slight heterogeneous enhancement. Recommend correlation with liver function studies. This can be seen with rapid intravenous hydration. 3. No hydronephrosis in either kidney. Notified MEGAN Zapata at 07/25/2022 2:48 PM. Laboratory Results WBC 15.2 10^3/uL (4.0-10.0) H 07/25/22 12:05 RBC 4.41 10^6/uL (4.1-5.3) 07/25/22 12:05 Hgb 13.7 g/dL (11.5-15.3) 07/25/22 12:05 Hct 41.3 % (37.0-47.0) 07/25/22 12:05 MCV 93.7 fl (81-99) 07/25/22 12:05 MCH 31.1 pg (28.0-34.0) 07/25/22 12:05 MCHC 33.2 g/dL (30.0-36.0) 07/25/22 12:05 RDW 11.5 % (12.1-15.1) L 07/25/22 12:05 Plt Count 302 10^3/cmm (130-400) 07/25/22 12:05 MPV 10.3 fL (7.4-10.4) 07/25/22 12:05 Neut % (Auto) 82.6 % 07/25/22 12:05 Lymph % (Auto) 9.9 % 07/25/22 12:05 [place] % (Auto) 5.5 % 07/25/22 12:05 Eos % (Auto) 1.2 % 07/25/22 12:05 Baso % (Auto) 0.5 % 07/25/22 12:05 Neut # (Auto) 12.56 10^3/uL (1.8-7.7) H 07/25/22 12:05 Lymph # (Auto) 1.5 10^3/uL (0.8-4.8) 07/25/22 12:05 [place] # (Auto) 0.8 10^3/uL (0.2-0.9) 07/25/22 12:05 Eos # (Auto) 0.2 10^3/uL (0.0-0.8) 07/25/22 12:05 Baso # (Auto) 0.1 10^3/uL (0.0-0.1) 07/25/22 12:05 Nucleated RBC % (auto) 0 % 07/25/22 12:05 Nucleated RBCs # 0.0 /100WBC 07/25/22 12:05 Sodium 139 mmol/L (136-145) 07/25/22 12:05 Potassium 4.2 mmol/L (3.5-5.1) 07/25/22 12:05 Chloride 102 mmol/L (98-107) 07/25/22 12:05 Carbon Dioxide 26 mmol/L (22-29) 07/25/22 12:05 Anion Gap 15.2 (5-19) 07/25/22 12:05 BUN 9 mg/dL (6-20) 07/25/22 12:05 Creatinine 0.6 mg/dL (0.5-0.9) 07/25/22 12:05 GFR Calculation 123.9 mL/min (90-130) 07/25/22 12:05 Glucose 89 mg/dL (65-115) 07/25/22 12:05 Calculated Osmolality 286 mOsm/kg (285-295) 07/25/22 12:05 Calcium 9.2 mg/dL (8.5-10.5) 07/25/22 12:05 Total Bilirubin 0.9 mg/dL (0.15-1.2) 07/25/22 12:05 AST 15 U/L (0-32) 07/25/22 12:05 ALT 14 U/L (0-33) 07/25/22 12:05 Alkaline Phosphatase 47 U/L (35-105) 07/25/22 12:05 Total Protein 7.2 g/dL (6.6-8.7) 07/25/22 12:05 Albumin 4.4 g/dL (3.5-5.2) 07/25/22 12:05 Globulin 2.8 g/dL (1.3-4.6) 07/25/22 12:05 Lipase 14 U/L (13-60) 07/25/22 12:05 HCG, Qual Negative (Negative) 07/25/22 13:00 Urine Color Yellow (Yellow) 07/25/22 13:00 Urine Appearance Hazy (CLEAR) A 07/25/22 13:00 Urine pH 5 (5-7) 07/25/22 13:00 Ur Specific [place] 1.025 (1.005-1.030) 07/25/22 13:00 Urine Protein Neg (Negative) 07/25/22 13:00 Urine Glucose (UA) Norm (Normal) 07/25/22 13:00 Urine Ketones 1+ (Negative) H 07/25/22 13:00 Urine Blood 3+ (Negative) H 07/25/22 13:00 Urine Nitrate Negative (Negative) 07/25/22 13:00 Urine Bilirubin Neg (Negative) 07/25/22 13:00 Urine Urobilinogen 1 mg/dL (Negative) H 07/25/22 13:00 Ur Leukocyte Esterase Negative (Negative) 07/25/22 13:00 Urine RBC 5-10 /hpf (0-2) H 07/25/22 13:00 Urine WBC Rare /hpf (0-5) 07/25/22 13:00 Ur Squamous Epith Cells 0-4 /hpf (0-5) H 07/25/22 13:00 Amorphous Sediment 1+ /hpf 07/25/22 13:00 Urine Bacteria Trace /hpf (NONE) 07/25/22 13:00 Discharge Plan Discharge Patient Disposition: Home Clinical Impression: Abdominal pain Qualifiers: Abdominal location: generalized Qualified Code(s): R10.84 - Generalized abdom inal pain Condition: Stable Prescriptions: New ondansetron 4 mg tablet,disintegrating 4 mg PO Q8H PRN (Reason: nausea and vomiting) Qty: 20 0RF No Action sertraline 150 mg capsule 150 mg PO DAILY ondansetron HCl 8 mg tablet 8 mg PO Q12H PRN (Reason: nausea and vomiting) Qty: 10 0RF albuterol sulfate 90 mcg/actuation HFA aerosol inhaler 2 inh INHALATION Q4H PRN (Reason: shortness of breath or wheezing) Qty: 18 0R F Discharge Orders: Discharge ED (Routine); Ordered 07/25/22 Ordered By: Honorio Olivarez Referrals: Bess Smith DO [Primary Care Provider] - Discharge Diet: Advance as tolerated and Clear Liquid Discharge Activity: Increase activity as tolerated Patient Instructions: Abdominal Pain (ED) Activity Restrictions/Additional Instructions: Follow-up with medical provider as directed in the next 5 to 7 days for reevaluation. Take medications as prescribed. Return to the ER or your medical provider if condition worsens. Please read and understand discharge instruct ions. Thank you for choosing [facility] for your healthcare needs today. Please realize this is an emergency room and that we are providing you with a medical screening exam and this may not be complete and all inclusive of all the testing and or work up that you may need to determine your ailment or severity of your illness. It is very important that you follow up as instructed or that you return to the Emergency Department should you have concerns or if your condition changes or worsens in any way. Stand Alone Forms: Work/School Release Coding Level of Care Code ED Digital Associate for Ester Whatley
[2022-07-25 12:59] LABS: Alanine Aminotransferase 14 U/L (0-33); Albumin Level 4.4 g/dL (3.5-5.2); Alkaline Phosphatase 47 U/L (35-105); Anion Gap 15.2 (5-19); Aspartate Amino Transferase 15 U/L (0-32); Blood Urea Nitrogen 9 mg/dL (6-20); Calcium 9.2 mg/dL (8.5-10.5); Carbon Dioxide 26 mmol/L (22-29); Chloride 102 mmol/L (98-107); Globulin 2.8 g/dL (1.3-4.6); Glomerular Filtration Rate 123.9 mL/min (90-130); Glucose 89 mg/dL (65-115); Lipase 14 U/L (13-60); Osmolality Calculated 286 mOsm/kg (285-295); Potassium 4.2 mmol/L (3.5-5.1); Sodium 139 mmol/L (136-145); Total Bilirubin 0.9 mg/dL (0.15-1.2); Total Protein 7.2 g/dL (6.6-8.7)
--- NOTE | 2022-07-25 13:00 | CT_ITS ---
WS: [id number] CT ABDOMEN PELVIS TECHNIQUE: Contrast-enhanced CT of the abdomen and pelvis with coronal and sagittal reformatted image s. CLINICAL INFORMATION: Periumbilical abdominal pain, nausea vomiting COMPARISON: CT August 09, 2021 DLP: 347.[address] scans at [facility] use at least one of these dose optimization techniques: automated e xposure control; mA and/or kV adjustment per patient size (includes targeted exams where dose is matc hed to clinical indication); or iterative reconstruction. FINDINGS: Lung bases are well aerated. Interval appendectomy since the prior examination. Liver is somewhat enl arged and heterogeneous with periportal edema. Correlation with liver function tests. Normal gallbladder. Adrenal glands are normal. Normal renal parenchymal enhancement. No hydronephrosi s. Normal pancreatic parenchymal enhancement. Normal spleen. Normal GE junction. Peripheral enhancing RIGHT corpus luteum cyst measuring 2.3 x 2.1 CM. Celiac and SMA are patent. Norm al portal vein and splenic vein. Normal sigmoid colon. No evidence of high-grade small or large bowel obstruction. Trace free fluid in the cul-de-sac. Appendectomy has been performed since the prior examination. CT/CT abdomen pelvis w con* [id number] IMPRESSION: 1. Peripheral enhancing RIGHT corpus luteum cyst measuring 2.3 x 2.1 CM. Trace free fluid in the cul-de-sac. 2. Mild enlargement of the liver with periportal edema and slight heterogeneou s enhancement. Recommend correlation with liver function studies. This can be s een with rapid intravenous hydration. 3. No hydronephrosis in either kidney. Notified MEGAN Zapata at 07/25/2022 2:48 PM.
[2022-07-25] MEDS: ondansetron 2 mg/ML SDV 2 mL 4 MG IVP (13:03)
[2022-07-25] MEDS: sodium chloride 0.9% 1,000 ML 999 ML IV (13:03)
[2022-07-25 13:36] LABS: Add Urine Microscopic? YES; Bilirubin Urine Neg (Negative); Blood Urine 3+ (Negative); Glucose Urine UA Norm (Normal); Ketones Urine 1+ (Negative); Leukocyte Esterase Urine Negative (Negative); Nitrate Urine Negative (Negative); Protein Urine Neg (Negative); Specific Gravity, Urine 1.025 (1.005-1.030); Urine Appearance Hazy (CLEAR); Urine Color Yellow (Yellow); Urobilinogen Urine 1 mg/dL (Negative); pH Urine 5 (5-7)
[2022-07-25 13:37] LABS: Amorphous Sediment Urine 1+ /hpf; Bacteria Urine TRACE /hpf; Squamous Epithelial Cell Urine 0-4 /hpf (0-5); WBC Urine RARE /hpf (0-5)
[2022-07-25 13:38] LABS: Add Urine Culture? No
[2022-07-25 13:43] LABS: HCG Qualitative Urine. Negative (Negative)
[2022-07-25] MEDS: iohexol 350 mg/mL 500 mL Btl (per mL) IV (14:17)
[2022-07-25 15:30] VITALS: BP 111/65; PULSE 75; RESP 14; O2SAT 96
== END 2022-07-25 15:31 | disposition home or self-care (01) ==
PROVIDERS: Emergency Medicine; Emergency Provider Physician Assistant; PCP Family Medicine
DX: R10.84 Generalized abdominal pain (principal); N83.11 Corpus luteum cyst of right ovary
CPT/HCPCS: 36415; 74177; 80053; 81001; 81025; 83690; 85025; 96361; 96374; 99285; J2405; J7030; Q9967

== ENCOUNTER 2022-08-18 12:11 | Emergency (ER) | payer OTHER, MEDICAID, SELFPAY ==
[2022-08-18 12:23] VITALS: BP 129/74; PULSE 81; TEMP 36.9; O2SAT 99; BMI 20.3
--- NOTE | 2022-08-18 12:37 | USR_ITS ---
PROCEDURE INFORMATION: Exam: US First Trimester, Transabdominal and US , Transvaginal Exam date and time: 08/18/2022 1:08 PM Age: 22 years old Clinical indication: complicated by abdominal or pelvic pain; Right lower quadrant; First trimester (<14 weeks 0 days); Gestational age or lmp: 5w5d; TECHNIQUE: Imaging protocol: Real-time transabdominal obstetrical ultrasound of the maternal pelvis and a first trimester , less than 14 weeks 0 days, with image documentation. Transvaginal imaging was used for better evaluation of the fetus, adnexa, and/or cervix. COMPARISON: CT abdomen pelvis w con* [id number] 07/25/2022 2:14 PM FINDINGS: Gestation: A gestational sac is seen within the endometrium with a mean gestational sac diameter of 0.8 cm consistent with a gestational age of 5 weeks 5 days. No yolk sac or pole is seen at this time. Embryonic/ heart rate: Not applicable Extra-embryonic membranes/Placenta: Unremarkable. No subchorionic bleed. Amniotic fluid: Amniotic fluid and extra-amniotic fluid is normal for gestational age. BIOMETRY: Gestational age (AUA): 5 weeks 5 days by mean gestational sac diameter. MATERNAL: Uterus: Unremarkable. 10.4 x 6.1 x 3.8 cm and appears anteverted. Cervix: Unremarkable as visualized. Right ovary/adnexa: 2.1 x 1.6 x 2.1 cm. Ovarian flow is seen. Probable corpus luteal cyst appearance. Left ovary/adnexa: 2.2 x 1.2 x 1.9 cm. Ovarian flow is seen. Intraperitoneal space: No intraperitoneal free fluid. US/US OB <= 14 weeks fetus [id number] IMPRESSION: Early intrauterine at 5 weeks 5 days by mean gestational sac diameter, for follow-up without identification of pole at this time.
--- NOTE | 2022-08-18 12:37 | XRR_ITS ---
PROCEDURE INFORMATION: Exam: XR Chest Exam date and time: 08/18/2022 12:58 PM Age: 22 years old Clinical indication: Shortness of breath; Additional info: SOB TECHNIQUE: Imaging protocol: Radiologic exam of the chest. Views: 1 view. COMPARISON: CR XR ribs LT mn 3V w CXR1V [id number] 11/02/2021 3:16 PM FINDINGS: Lungs: Good inspiration versus hyperinflation on this single-view exam. No focal infiltrate or consolidation. Pleural spaces: Unremarkable. No pleural effusion. No pneumothorax. Heart/Mediastinum: Unremarkable. No cardiomegaly. Bones/joints: Unremarkable. Soft tissues: Nipple jewelry noted bilaterally. Other findings: No significant change with previous exam. XR/XR chest 1V portable [id number] IMPRESSION: No acute cardiopulmonary abnormality.
--- NOTE | 2022-08-18 13:00 | ECG_ITS ---
[facility] Test Date: 2022-08-18 Pat Name: Jennifer Hong Department: Room: Gender: Female Waiter: : 2000 Requested By: Isela Eddy Order Number: [id number] Sandra MD: Paul Lucero Measurements Intervals [place] Rate: 73 P: 137 CO: 131 QRS: 116 QRSD: 105 T: 125 QT: 379 QTc: 420 Interpretive Statements SINUS RHYTHM POSSIBLE RIGHT VENTRICULAR CONDUCTION DELAY [RSR (QR) IN V1/V2] LEFT POSTERIOR FASCICULAR BLOCK [QRS AXIS > 109, INFERIOR Q] MODERATE ST DEPRESSION [0.05+ mV ST DEPRESSION] Compared to ECG 05/17/2021 02:12:51 Left posterior fascicular block now present ST (T wave) deviation now present Short CO interval no longer present Electronically Signed On 08-18-2022 18:57:49 CDT by Paul Lucero [id number]
--- NOTE | 2022-08-18 13:00 | W.ED.SYNCOPE ---
HPI - Syncope General: Chief Complaint: Syncope Stated Complaint: sob/lightheaded Time Seen by Provider: 08/18/22 12:37 Source: patient Mode of arrival: ambulatory Limitations: no limitations History of Present Illness: 22-year-old female states she is currently 5 weeks states that she has been having symptoms of allergies versus a sinus infection states been having some stuffy nose with some sinus pain with difficulty breathing through her nose states she is felt a little lightheaded today she states that when she is at work she did sit down had a syncopal event she denies any abdominal pain denies any vaginal bleeding denies any severe headache states she feels short of breath just due to her nose being clogged Associated symptoms: Deny abdominal pain, fever(s), headache(s) or nausea Review of Systems Const: Denies: fever(s), chills, body aches or change in appetite Eyes: Denies: blurry vision or eye discomfort ENMT: Reports: nasal congestion and sinus pain Card: Reports: syncope Resp: Denies: dyspnea GI: Denies: abdominal pain, nausea, vomiting or diarrhea : Denies: dysuria Musc: Denies: neck pain or back pain Skin/Breast: Denies: rash Neuro: Denies: headache(s) Psych: Denies: depression Santy/Lymph: Denies: easy bruising All/Imm: Denies: urticaria PFSH ED PFSH: Medical History Acute pharyngitis Anxiety Asthma Chronic migraine without aura, intractable, with status migrainosus Surgical History H/O tympanostomy (~2001) S/P tonsillectomy (~2004) Age 5[address] Performed by [address] Lombardo at [facility] Family History Mother Diabetes Hyperlipidemia Hypertension Stroke CAD (coronary artery disease) Social History Smoking and tobacco status: never smoked Alcohol intake: never Physical Exam Const: COMMON NORMALS: no acute distress, patient oriented x3 and healthy appearing HENMT: COMMON NORMALS: normocephalic and atraumatic HEAD & SCALP: normocephalic and atraumatic Eye: COMMON NORMALS: Equal, round and reactive pupils present and EOMs intact bilaterally PUPIL: Yes Equal, round and reactive pupils present Neck/C-Spine: COMMON NORMALS: full ROM and supple Chest: COMMONS NORMALS: normal inspection of the chest and normal palpation of entire chest wall Resp: COMMON NORMALS: normal respiratory effort, No retractions, No use of accessory muscles and clear to auscultation bilaterally AUSCULTATION: clear to auscultation bilaterally Cardio: COMMON NORMALS: regular rate, regular rhythm and No murmurs present (Cardio) RATE: regular rate RHYTHM: regular rhythm GI: COMMON NORMALS: Normal to inspection, nondistended, normoactive bowel sounds present, Soft to palpation, non-tender and no masses PALPATION: Yes Soft to palpation Extremity: COMMON NORMALS: normal to inspection and full ROM Neuro: COMMON NORMALS: patient oriented x3, moves all extremities and no focal motor deficits Psych: COMMON NORMALS: mental status grossly normal, Normal thought process present and cooperative THOUGHT PROCESS: Normal thought process present Skin: COMMON NORMALS: no rashes or lesions noted and no wounds GENERAL SKIN EXAM: no rashes or lesions noted Course Vital Signs: Vital signs: Vital Signs Temperature 98.5 F 08/18/22 12:23 Pulse Rate 78 08/18/22 14:01 Respiratory Rate 16 08/18/22 14:01 Blood Pressure 128/66 08/18/22 14:01 Pulse Oximetry 99 08/18/22 14:01 Oxygen Delivery Me thod 08/18/22 14:01 MDM - Syncope Medical Decision Making Patient presents here with a syncopal event likely allergies as well causing her some sinus congestion. She is well-appearing here her blood work is all normal vitals here been normal no sign of a pulm embolism she is stable for discharge and is to follow-up with her PCP and return if worsening. Lab Data 08/18/22 12:46 Radiology Impressions Chest X-Ray 08/18/22 12:37 IMPRESSION: No acute cardiopulmonary abnormality. Ultrasound 08/18/22 12:37 IMPRESSION: Early intrauterine at 5 weeks 5 days by mean gestational sac diameter, for follow-up without identification of pole at this time. Laboratory Results WBC 8.6 10^3/uL (4.0-10.0) 08/18/22 12:46 RBC 3.84 10^6/uL (4.1-5.3) L 08/18/22 12:46 Hgb 12.0 g/dL (11.5-15.3) 08/18/22 12:46 Hct 35.5 % (37.0-47.0) L 08/18/22 12:46 MCV 92.4 fl (81-99) 08/18/22 12:46 MCH 31.3 pg (28.0-34.0) 08/18/22 12:46 MCHC 33.8 g/dL (30.0-36.0) 08/18/22 12:46 RDW 11.6 % (12.1-15.1) L 08/18/22 12:46 Plt Count 228 10^3/cmm (130-400) 08/18/22 12:46 MPV 9.5 fL (7.4-10.4) 08/18/22 12:46 Neut % (Auto) 62.6 % 08/18/22 12:46 Lymph % (Auto) 24.6 % 08/18/22 12:46 [place] % (Auto) 9.3 % 08/18/22 12:46 Eos % (Auto) 2.5 % 08/18/22 12:46 Baso % (Auto) 0.7 % 08/18/22 12:46 Neut # (Auto) 5.40 10^3/uL (1.8-7.7) 08/18/22 12:46 Lymph # (Auto) 2.1 10^3/uL (0.8-4.8) 08/18/22 12:46 [place] # (Auto) 0.8 10^3/uL (0.2-0.9) 08/18/22 12:46 Eos # (Auto) 0.2 10^3/uL (0.0-0.8) 08/18/22 12:46 Baso # (Auto) 0.1 10^3/uL (0.0-0.1) 08/18/22 12:46 Nucleated RBC % (auto) 0 % 08/18/22 12:46 Nucleated RBCs # 0.0 /100WBC 08/18/22 12:46 Sodium 139 mmol/L (136-145) 08/18/22 12:46 Potassium 4.2 mmol/L (3.5-5.1) 08/18/22 12:46 Chloride 104 mmol/L (98-107) 08/18/22 12:46 Carbon Dioxide 23 mmol/L (22-29) 08/18/22 12:46 Anion Gap 16.2 (5-19) 08/18/22 12:46 BUN 8 mg/dL (6-20) 08/18/22 12:46 Creatinine 0.4 mg/dL (0.5-0.9) L 08/18/22 12:46 GFR Calculation 197.8 mL/min (90-130) H 08/18/22 12:46 Glucose 78 mg/dL (65-115) 08/18/22 12:46 Calculated Osmolality 285 mOsm/kg (285-295) 08/18/22 12:46 Calcium 9.0 mg/dL (8.5-10.5) 08/18/22 12:46 Total Bilirubin 0.3 mg/dL (0.15-1.2) 08/18/22 12:46 AST 14 U/L (0-32) 08/18/22 12:46 ALT 13 U/L (0-33) 08/18/22 12:46 Alkaline Phosphatase 32 U/L (35-105) L 08/18/22 12:46 Total Protein 6.6 g/dL (6.6-8.7) 08/18/22 12:46 Albumin 4.2 g/dL (3.5-5.2) 08/18/22 12:46 Globulin 2.4 g/dL (1.3-4.6) 08/18/22 12:46 Urine Color Yellow (Yellow) 08/18/22 12:46 Urine Appearance Clear (CLEAR) 08/18/22 12:46 Urine pH 5 (5-7) 08/18/22 12:46 Ur Specific [place] 1.025 (1.005-1.030) 08/18/22 12:46 Urine Protein Neg (Negative) 08/18/22 12:46 Urine Glucose (UA) Norm (Normal) 08/18/22 12:46 Urine Ketones 1+ (Negative) H 08/18/22 12:46 Urine Blood 2+ (Negative) H 08/18/22 12:46 Urine Nitrate Negative (Negative) 08/18/22 12:46 Urine Bilirubin Neg (Negative) 08/18/22 12:46 Urine Urobilinogen Norm mg/dL (Negative) 08/18/22 12:46 Ur Leukocyte Esterase 1+ (Negative) H 08/18/22 12:46 Urine RBC 5-10 /hpf (0-2) H 08/18/22 12:46 Urine WBC 0-4 /hpf (0-5) H 08/18/22 12:46 Ur Squamous Epith Cells 5-10 /hpf (0-5) H 08/18/22 12:46 Amorphous Sediment Trace /hpf 08/18/22 12:46 Urine Bacteria Trace /hpf (NONE) 08/18/22 12:46 Urine Mucus 1+ /hpf 08/18/22 12:46 EKG Data EKG 1: I personally reviewed and interpreted this EKG as follows: EKG interpretation date: 08/18/22 EKG interpretation time: 13:00 Interpretation: nsr hr [address] or t wave abnormalities qrs 105 qtc 406 Discharge Plan Discharge Patient Disposition: Home Clinical Impression: Syncope, Nasal congestion Condition: Stable Prescriptions: No Action sertraline 150 mg capsule 150 mg PO DAILY ondansetron HCl 8 mg tablet 8 mg PO Q12H PRN (Reason: nausea and vomiting) Qty: 10 0RF albuterol sulfate 90 mcg/actuation HFA aerosol inhaler 2 inh INHALATION Q4H PRN (Reason: shortness of breath or wheezing) Qty: 18 0RF ondansetron 4 mg tablet,disintegrating 4 mg PO Q8H PRN (Reason: nausea and vomiting) Qty: 20 0RF Discharge Orders: Discharge ED (Routine); Ordered 08/18/22 Ordered By: Isela Eddy Referrals: Bess Smith DO [Primary Care Provider] - Discharge Diet: Advance as tolerated Discharge Activity: Resume usual activity Patient Instructions: Syncope (ED) Coding Level of Care Code ED Hotbed Transfer Operator for Ester Whatley
[2022-08-18 13:06] LABS: Basophils # 0.1 10^3/uL (0.0-0.1); Basophils % 0.7 %; Eosinophils # 0.2 10^3/uL (0.0-0.8); Eosinophils % 2.5 %; Hematocrit 35.5 % (37.0-47.0); Lymphocytes # 2.1 10^3/uL (0.8-4.8); Lymphocytes % 24.6 %; Mean Corpuscular HGB Conc 33.8 g/dL (30.0-36.0); Mean Corpuscular Hemoglobin 31.3 pg (28.0-34.0); Mean Corpuscular Volume 92.4 fl (81-99); Mean Platelet Volume 9.5 fL (7.4-10.4); Monocytes # 0.8 10^3/uL (0.2-0.9); Monocytes % 9.3 %; Neutrophils % 62.6 %; Nucleated Red Blood Cells % 0 %; Platelet Count 228 10^3/cmm (130-400); Red Blood Count 3.84 10^6/uL (4.1-5.3); Red Cell Distribution Width 11.6 % (12.1-15.1); White Blood Count 8.6 10^3/uL (4.0-10.0)
[2022-08-18 13:32] LABS: Alanine Aminotransferase 13 U/L (0-33); Albumin Level 4.2 g/dL (3.5-5.2); Alkaline Phosphatase 32 U/L (35-105); Anion Gap 16.2 (5-19); Aspartate Amino Transferase 14 U/L (0-32); Blood Urea Nitrogen 8 mg/dL (6-20); Carbon Dioxide 23 mmol/L (22-29); Chloride 104 mmol/L (98-107); Globulin 2.4 g/dL (1.3-4.6); Glomerular Filtration Rate 197.8 mL/min (90-130); Glucose 78 mg/dL (65-115); Osmolality Calculated 285 mOsm/kg (285-295); Potassium 4.2 mmol/L (3.5-5.1); Sodium 139 mmol/L (136-145); Total Bilirubin 0.3 mg/dL (0.15-1.2); Total Protein 6.6 g/dL (6.6-8.7)
[2022-08-18 13:44] LABS: Specific Gravity, Urine 1.025 (1.005-1.030); Urine Appearance Clear (CLEAR); Urine Color Yellow (Yellow); pH Urine 5 (5-7)
[2022-08-18 13:45] LABS: Add Urine Microscopic? YES; Bilirubin Urine Neg (Negative); Blood Urine 2+ (Negative); Glucose Urine UA Norm (Normal); Ketones Urine 1+ (Negative); Leukocyte Esterase Urine 1+ (Negative); Nitrate Urine Negative (Negative); Protein Urine Neg (Negative); Urobilinogen Urine Norm (Negative)
[2022-08-18 13:46] LABS: Amorphous Sediment Urine TRACE /hpf; Bacteria Urine TRACE /hpf; Mucus Urine 1+ /hpf; WBC Urine 0-4 /hpf (0-5)
[2022-08-18 13:48] LABS: Add Urine Culture? Yes
[2022-08-18] MEDS: dexamethasone 10 mg/mL INJ IVP (13:52)
[2022-08-18] MEDS: sodium chloride 0.9% 1,000 ML 999 ML IV (13:52)
[2022-08-18 14:01] VITALS: BP 128/66; PULSE 78; RESP 16; O2SAT 99
== END 2022-08-18 14:44 | disposition home or self-care (01) ==
PROVIDERS: Emergency Provider Emergency Medicine; PCP Family Medicine
DX: O26.891 Other specified pregnancy related conditions, first trimester (principal); R55 Syncope and collapse; R09.81 Nasal congestion; Z3A.01 Less than 8 weeks gestation of pregnancy
CPT/HCPCS: 71045; 76801; 80053; 81001; 85025; 87086; 93005; 96361; 96374; 99285; J1100; J7030

== ENCOUNTER 2022-08-29 08:23 | Emergency (ER) | payer OTHER, MEDICAID, SELFPAY ==
[2022-08-29 08:39] VITALS: BP 123/62; PULSE 75; RESP 14; TEMP 37.1; O2SAT 99; BMI 20.3
--- NOTE | 2022-08-29 08:44 | ED_ITS ---
HPI - Nausea/Vomiting/Diarrhea General: Chief complaint: Nausea/Vomiting/Diarrhea Stated complaint: n/v Time Seen by Provider: 08/29/22 08:32 Source: patient Mode of arrival: ambulatory Limitations: no limitations History of Present Illness: Patient is a 22-year-old female who presents to ED today with a complaint of nausea and vomiting that she attributes to her early . Patient states nausea and vomiting began several days ago. She states she followed up with her OB Dr. Smith who placed her on promethazine. She states this helped for approximately a day but now her nausea and vomiting has persisted. She states she was told to come to the ED for IV fluids. Patient states she is already vomited approximately 10 times this morning. Patient denies lightheadedness or dizziness. She denies any vaginal bleeding or vaginal discharge. She is not having any abdominal pain or cramping. No diarrhea. MD elicited complaint: nausea and vomiting Onset (ago): day(s) Associated nausea: Yes Associated abdominal pain: No Location of pain: None Severity: moderate Exacerbating factors: eating Relieving factors: none Context: other ( ) Associated symtoms: Reports no associated symptoms and nausea; Denies chest pain, dizziness, dysuria, fatigue, headache(s) or malaise Treatment prior to arrival: other (phenergan) Review of Systems Const: Denies: fever(s), chills, body aches, fatigue or malaise Card: Denies: chest pain Resp: Denies: dyspnea GI: Reports: nausea and vomiting; Denies: abdominal pain, hematemesis or change in bowel habits : Denies: flank pain, difficulty voiding, dysuria or hematuria Musc: Denies: neck pain, back pain, extremity pain or joint pain Skin/Breast: Denies: rash Neuro: Denies: headache(s), numbness in extremities, weakness in extremities, sensory changes, frequent falls or dizziness PFS ED PFSH: Medical History Acute pharyngitis Anxiety Asthma Chronic migraine without aura, intractable, with status migrainosus Surgical History H/O tympanostomy (~2001) S/P tonsillectomy (~2004) Age 5. Performed by [address] Lombardo at [facility] Family History Mother Diabetes Hyperlipidemia Hypertension Stroke CAD (coronary artery disease) Social History Smoking and tobacco status: never smoked Alcohol intake: never Physical Exam Const: COMMON NORMALS: no acute distress, average body habitus, patient oriented x3, no limitations, healthy appearing, alert and well nourished ORIENTATION/CONSCIOUSNESS: Yes awake, Yes oriented to person, Yes oriented to place and Yes oriented to time HENMT: COMMON NORMALS: normocephalic and atraumatic HEAD & SCALP: normal to inspection, normocephalic and atraumatic Resp: COMMON NORMALS: normal respiratory effort and clear to auscultation bilaterally AUSCULTATION: clear to auscultation bilaterally Cardio: COMMON NORMALS: regular rate and regular rhythm RATE: regular rate RHYTHM: regular rhythm GI: COMMON NORMALS: Normal to inspection, nondistended, normoactive bowel sounds present, Soft to palpation, non-tender, No hepatosplenomegaly present and no masses PALPATION: Yes Soft to palpation and Yes No hepatosplenomegaly present Extremity: COMMON NORMALS: normal to inspection GENERAL: Yes normal exam except as noted Neuro: SRINIVAS COMA SCALE: document GCS findings Srinivas coma scale eye opening: Spontaneous [place] coma scale verbal response: Orientated [place] coma scale motor response: Obey commands Srinivas coma scale total score: 15 COMMON NORMALS: patient oriented x3, moves all extremities, no focal motor deficits, no sensory deficits noted and gait normal SENSORIUM/ORIENTATION: Yes alert, Yes oriented to person, Yes oriented to place and Yes oriented to time Skin: COMMON NORMALS: no rashes or lesions noted GENERAL SKIN EXAM: no rashes or lesions noted Course Vital Signs: Vital signs: Vital Signs Temperature 98.7 F 08/29/22 08:39 Pulse Rate 71 08/29/22 08:46 Respiratory Rate 16 08/29/22 08:46 Blood Pressure 123/62 08/29/22 08:46 Pulse Oximetry 100 08/29/22 08:46 Oxygen Delivery Me thod Room Air 08/29/22 08:46 MDM - Nausea/Vomiting/Diarrhea Medical Decision Making Patient reports nausea is much improved. She has not had any episodes of vomiting while here. Blood work overall is unremarkable. hCG is consistent with dates. She not having any abdominal/pelvic pain or vaginal bleeding. She is safe to follow up with OB at this time. She did have US here a few weeks ago which showed intrauterine gestational sac at 5w5d with no pole yet. She can get repeat f/u US performed through OB. Lab Data 08/29/22 09:05 08/29/22 09:05 Laboratory Results WBC 10.7 10^3/uL (4.0-10.0) H 08/29/22 09:05 RBC 3.78 10^6/uL (4.1-5.3) L 08/29/22 09:05 Hgb 12.0 g/dL (11.5-15.3) 08/29/22 09:05 Hct 35.5 % (37.0-47.0) L 08/29/22 09:05 MCV 93.9 fl (81-99) 08/29/22 09:05 MCH 31.7 pg (28.0-34.0) 08/29/22 09:05 MCHC 33.8 g/dL (30.0-36.0) 08/29/22 09:05 RDW 11.3 % (12.1-15.1) L 08/29/22 09:05 Plt Count 256 10^3/cmm (130-400) 08/29/22 09:05 MPV 9.3 fL (7.4-10.4) 08/29/22 09:05 Neut % (Auto) 70.9 % 08/29/22 09:05 Lymph % (Auto) 20.4 % 08/29/22 09:05 [place] % (Auto) 6.1 % 08/29/22 09:05 Eos % (Auto) 1.7 % 08/29/22 09:05 Baso % (Auto) 0.4 % 08/29/22 09:05 Neut # (Auto) 7.61 10^3/uL (1.8-7.7) 08/29/22 09:05 Lymph # (Auto) 2.2 10^3/uL (0.8-4.8) 08/29/22 09:05 [place] # (Auto) 0.7 10^3/uL (0.2-0.9) 08/29/22 09:05 Eos # (Auto) 0.2 10^3/uL (0.0-0.8) 08/29/22 09:05 Baso # (Auto) 0.0 10^3/uL (0.0-0.1) 08/29/22 09:05 Nucleated RBC % (auto) 0 % 08/29/22 09:05 Nucleated RBCs # 0.0 /100WBC 08/29/22 09:05 Sodium 137 mmol/L (136-145) 08/29/22 09:05 Potassium 3.7 mmol/L (3.5-5.1) 08/29/22 09:05 Chloride 105 mmol/L (98-107) 08/29/22 09:05 Carbon Dioxide 23 mmol/L (22-29) 08/29/22 09:05 Anion Gap 12.7 (5-19) 08/29/22 09:05 BUN 6 mg/dL (6-20) 08/29/22 09:05 Creatinine 0.4 mg/dL (0.5-0.9) L 08/29/22 09:05 GFR Calculation 197.8 mL/min (90-130) H 08/29/22 09:05 Glucose 80 mg/dL (65-115) 08/29/22 09:05 Calculated Osmolality 281 mOsm/kg (285-295) L 08/29/22 09:05 Calcium 8.8 mg/dL (8.5-10.5) 08/29/22 09:05 Total Bilirubin 0.5 mg/dL (0.15-1.2) 08/29/22 09:05 AST 13 U/L (0-32) 08/29/22 09:05 ALT 11 U/L (0-33) 08/29/22 09:05 Alkaline Phosphatase 30 U/L (35-105) L 08/29/22 09:05 Total Protein 6.6 g/dL (6.6-8.7) 08/29/22 09:05 Albumin 3.8 g/dL (3.5-5.2) 08/29/22 09:05 Globulin 2.8 g/dL (1.3-4.6) 08/29/22 09:05 Ser , Semi-Qnt 60609.00 mIU/mL 08/29/22 09:05 Urine Color Yellow (Yellow) 08/29/22 09:24 Urine Appearance Clear (CLEAR) 08/29/22 09:24 Urine pH 7 (5-7) 08/29/22 09:24 Ur Specific [place] 1.015 (1.005-1.030) 08/29/22 09:24 Urine Protein Neg (Negative) 08/29/22 09:24 Urine Glucose (UA) Norm (Normal) 08/29/22 09:24 Urine Ketones Negative (Negative) 08/29/22 09:24 Urine Blood Neg (Negative) 08/29/22 09:24 Urine Nitrate Negative (Negative) 08/29/22 09:24 Urine Bilirubin Neg (Negative) 08/29/22 09:24 Urine Urobilinogen Neg mg/dL (Negative) 08/29/22 09:24 Ur Leukocyte Esterase Negative (Negative) 08/29/22 09:24 Discharge Plan Discharge Patient Disposition: Home Clinical Impression: Nausea and vomiting during Condition: Stable Prescriptions: New metoclopramide HCl 10 mg tablet 10 mg PO Q6H PRN (Reason: nausea and vomiting) Qty: 14 0RF No Action albuterol sulfate 90 mcg/actuation HFA aerosol inhaler 2 inh INHALATION Q4H PRN (Reason: shortness of breath or wheezing) Qty: 18 0RF promethazine 12.5 mg tablet 12.5 mg PO Q6H PRN (Reason: Nausea And Vomiting) sertraline 100 mg tablet 100 mg PO DAILY 28 mg iron- 800 mcg tablet 1 tab PO DAILY Discharge Orders: Discharge ED (Routine); Ordered 08/29/22 Ordered By: Jacklyn Johnson Referrals: Bess Smith DO [Primary Care Provider] - Patient Instructions: Nausea and Vomiting in (ED) Activity Restrictions/Additional Instructions: You need to return to the emergency department for uncontrollable nausea or vom iting, severe abdominal or pelvic pain, vaginal bleeding, or any other concerns you may have. Coding Level of Care Code ED Ship Wirer for Ester Whatley
[2022-08-29 08:46] VITALS: BP 123/62; PULSE 71; RESP 16; O2SAT 100
[2022-08-29] MEDS: sodium chloride 0.9% 1,000 ML 999 ML IV (09:01)
[2022-08-29] MEDS: metoclopramide 5 mg/mL SDV 2 mL IVP (09:01)
[2022-08-29] MEDS: diphenhydrAMINE 50 mg/mL SDV 1mL 25 MG IVP (09:02)
[2022-08-29 09:15] LABS: Basophils % 0.4 %; Eosinophils # 0.2 10^3/uL (0.0-0.8); Eosinophils % 1.7 %; Hematocrit 35.5 % (37.0-47.0); Lymphocytes # 2.2 10^3/uL (0.8-4.8); Lymphocytes % 20.4 %; Mean Corpuscular HGB Conc 33.8 g/dL (30.0-36.0); Mean Corpuscular Hemoglobin 31.7 pg (28.0-34.0); Mean Corpuscular Volume 93.9 fl (81-99); Mean Platelet Volume 9.3 fL (7.4-10.4); Monocytes # 0.7 10^3/uL (0.2-0.9); Monocytes % 6.1 %; Neutrophils # 7.61 10^3/uL (1.8-7.7); Neutrophils % 70.9 %; Nucleated Red Blood Cells % 0 %; Platelet Count 256 10^3/cmm (130-400); Red Blood Count 3.78 10^6/uL (4.1-5.3); Red Cell Distribution Width 11.3 % (12.1-15.1); White Blood Count 10.7 10^3/uL (4.0-10.0)
[2022-08-29 09:31] LABS: Add Urine Microscopic? NO; Charge for UA Resulting for Rev
[2022-08-29 09:44] LABS: Bilirubin Urine Neg (Negative); Blood Urine Neg (Negative); Glucose Urine UA Norm (Normal); Ketones Urine Negative (Negative); Leukocyte Esterase Urine Negative (Negative); Nitrate Urine Negative (Negative); Protein Urine Neg (Negative); Specific Gravity, Urine 1.015 (1.005-1.030); Urine Appearance Clear (CLEAR); Urine Color Yellow (Yellow); Urobilinogen Urine Neg (Negative); pH Urine 7 (5-7)
[2022-08-29 09:51] LABS: Alanine Aminotransferase 11 U/L (0-33); Albumin Level 3.8 g/dL (3.5-5.2); Alkaline Phosphatase 30 U/L (35-105); Anion Gap 12.7 (5-19); Aspartate Amino Transferase 13 U/L (0-32); Blood Urea Nitrogen 6 mg/dL (6-20); Calcium 8.8 mg/dL (8.5-10.5); Carbon Dioxide 23 mmol/L (22-29); Chloride 105 mmol/L (98-107); Globulin 2.8 g/dL (1.3-4.6); Glomerular Filtration Rate 197.8 mL/min (90-130); Glucose 80 mg/dL (65-115); Osmolality Calculated 281 mOsm/kg (285-295); Potassium 3.7 mmol/L (3.5-5.1); Sodium 137 mmol/L (136-145); Total Bilirubin 0.5 mg/dL (0.15-1.2); Total Protein 6.6 g/dL (6.6-8.7)
== END 2022-08-29 11:25 | disposition home or self-care (01) ==
PROVIDERS: Emergency Provider Physician Assistant; PCP Family Medicine
DX: O26.891 Other specified pregnancy related conditions, first trimester (principal); R11.2 Nausea with vomiting, unspecified; Z3A.00 Weeks of gestation of pregnancy not specified
CPT/HCPCS: 80053; 81003; 84702; 85025; 96361; 96374; 96375; 99284; J1200; J2765; J7030

== ENCOUNTER 2022-09-04 09:51 | Outpatient (CLI) | payer OTHER, MEDICAID, SELFPAY ==
--- NOTE | 2022-09-04 10:02 | US_ITS ---
WS: [id number] EARLY OBSTETRICAL ULTRASOUND (<14 WEEKS). 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 Cardiac activity at 160 BPM. [place]-rump length lucille sures 1.3 cm which corresponds to a gestation of 7w4d. Normal-appearing yolk sac and amnion demonstra ari. Tiny subchorionic hemorrhage. Small subchorionic hemorrhage measures 10 x 5 x 3 mm. No free fluid. Normal size ovaries with no mass. Corpus luteum cyst RIGHT ovary. US/US OB <=14 wk fetus w transvag IMPRESSION: 1. Single intrauterine gestation of 7 weeks 4 days with an EDC of 04/19/2023. 2. Normal cardiac activity.
== END 2022-09-04 09:52 | disposition home or self-care (01) ==
LOC: RAD 09:55
PROVIDERS: PCP Family Medicine; Visit Provider Family Medicine
DX: Z34.81 Encounter for supervision of other normal pregnancy, first trimester (principal); Z3A.01 Less than 8 weeks gestation of pregnancy
CPT/HCPCS: 76801; 76817

== ENCOUNTER 2022-09-13 05:57 | Emergency (ER) | payer OTHER, MEDICAID, SELFPAY ==
[2022-09-13 06:00] VITALS: BP 129/67; PULSE 99; RESP 16; TEMP 36.7; O2SAT 98; BMI 20.7
[2022-09-13 06:08] VITALS: BP 129/67; PULSE 72; RESP 16; O2SAT 98
--- NOTE | 2022-09-13 06:20 | ED_ITS ---
HPI - Female Genitourinary General: Chief complaint: Urogenital-Female Stated complaint: vag bleeding Time Seen by Provider: 09/13/22 06:13 Source: patient Mode of arrival: ambulatory History of Present Illness: 22-year-old female presents to the emergency room with complaints of intermittent vaginal bleeding. Approximately 2 weeks ago patient had a ultrasound at the time she is having some spotting and a small subchorionic h emorrhage. She had some more spotting this morning with some cramping. Patient is a G2, P0 she is approximately 9 weeks gestation. Previous ultrasounds confirmed intrauterine and previous beta-hCG was normal for gestational age. She denies dysuria urgency or frequency. MD elicited complaint: vaginal bleeding Onset (ago): hour(s) Location of symptoms: pelvis Severity: mild Consistency: intermittent Vaginal discharge: none Vaginal bleeding: scant and bright red Exacerbating factors: none Relieving factors: none Associated symptoms: Deny abdominal pain, short of breath, fevers/chills, headache(s), nausea, rash, seizures, syncope, vaginal bleeding, vaginal discharge or weakness Review of Systems Const: Denies: fever(s), chills, body aches, change in appetite, fatigue or malaise Card: Denies: chest pain or syncope Resp: Denies: dyspnea, productive cough or non-productive cough GI: Denies: abdominal pain, nausea or vomiting : Reports: vaginal bleeding; Denies: vaginal discharge Musc: Denies: back pain Skin/Breast: Denies: rash or pruritus Neuro: Denies: headache(s) [facility] ED PFSH: Medical History Acute pharyngitis Anxiety Asthma Chronic migraine without aura, intractable, with status migrainosus Surgical History H/O tympanostomy (~2001) S/P tonsillectomy (~2004) Age 5[address] Performed [address] Lombardo at [facility] Family History Mother Diabetes Hyperlipidemia Hypertension Stroke CAD (coronary artery disease) Social History Smoking and tobacco status: never smoked Alcohol intake: never Substance/Drug Use: never Physical Exam Const: GENERAL APPEARANCE: cooperative and comfortable ORIENTATION/CONSCIOU SNESS: Yes awake, Yes oriented to person, Yes oriented to place and Yes oriented to time HENMT: COMMON NORMALS: normocephalic, atraumatic and hearing grossly normal bilaterally HEAD & SCALP: normocephalic and atraumatic Resp: COMMON NORMALS: normal respiratory effort, No retractions, No use of accessory muscles and clear to auscultation bilaterally AUSCULTATION: clear to auscultation bilaterally Cardio: COMMON NORMALS: regular rate, regular rhythm and No murmurs present (Cardio) RATE: regular rate RHYTHM: regular rhythm GI: COMMON NORMALS: Soft to palpation and No hepatosplenomegaly present AUSCULTATION: Yes normoactive bowel sounds PALPATION: Yes Soft to palpation, No Tenderness to palpation present (GI), No Guarding due to palpation present (GI) and Yes No hepatosplenomegaly present : SPECULUM EXAM - VAGINA: No vaginal bleeding OB/EXTERNAL & SPECULUM: No vaginal bleeding Extremity: COMMON NORMALS: normal to inspection, capillary refill normal, no clubbing, cyanosis or edema, no calf tenderness and no pedal edema Neuro: SENSORIUM/ORIENTATION: Yes oriented to person, Yes oriented to place and Yes oriented to time Skin: COMMON NORMALS: no rashes or lesions noted GENERAL SKIN EXAM: no rashes or lesions noted Course Vital Signs: Vital signs: Vital Signs Temperature 98.0 F 09/13/22 06:00 Pulse Rate 72 09/13/22 06:08 Respiratory Rate 16 09/13/22 06:40 Blood Pressure 129/67 09/13/22 06:40 Pulse Oximetry 95 09/13/22 06:40 [facility] - Female Medical Decision Making Patient with intermittent spotting. Previous ultrasound 9 days ago confirmed intrauterine with cardiac activity. Beta-hCG has increased. Patient not having any active bleeding at this time. Avoid strenuous activity follow-up with primary insurance attorney within the next week. Return if has further bleeding or worsening cramping. Medical Records I reviewed the patient's medical records. Lab Data I reviewed the patient's lab results. 09/13/22 06:31 Laboratory Results WBC 8.0 10^3/uL (4.0-10.0) 09/13/22 06:31 RBC 4.01 10^6/uL (4.1-5.3) L 09/13/22 06:31 Hgb 12.8 g/dL (11.5-15.3) 09/13/22 06:31 Hct 37.0 % (37.0-47.0) 09/13/22 06:31 MCV 92.3 fl (81-99) 09/13/22 06:31 MCH 31.9 pg (28.0-34.0) 09/13/22 06:31 MCHC 34.6 g/dL (30.0-36.0) 09/13/22 06:31 RDW 11.3 % (12.1-15.1) L 09/13/22 06:31 Plt Count 215 10^3/cmm (130-400) 09/13/22 06:31 MPV 9.4 fL (7.4-10.4) 09/13/22 06:31 Neut % (Auto) 74.2 % 09/13/22 06:31 Lymph % (Auto) 16.7 % 09/13/22 06:31 [place] % (Auto) 7.3 % 09/13/22 06:31 Eos % (Auto) 1.1 % 09/13/22 06:31 Baso % (Auto) 0.4 % 09/13/22 06:31 Neut # (Auto) 5.93 10^3/uL (1.8-7.7) 09/13/22 06:31 Lymph # (Auto) 1.3 10^3/uL (0.8-4.8) 09/13/22 06:31 [place] # (Auto) 0.6 10^3/uL (0.2-0.9) 09/13/22 06:31 Eos # (Auto) 0.1 10^3/uL (0.0-0.8) 09/13/22 06:31 Baso # (Auto) 0.0 10^3/uL (0.0-0.1) 09/13/22 06:31 Nucleated RBC % (auto) 0 % 09/13/22 06:31 Nucleated RBCs # 0.0 /100WBC 09/13/22 06:31 HCG, Qual Positive (Negative) H 09/13/22 06:31 Ser , Semi-Qnt 403535.00 mIU/mL 09/13/22 06:31 Urine Color Yellow (Yellow) 09/13/22 06:33 Urine Appearance Sl cloudy (CLEAR) A 09/13/22 06:33 Urine pH 5 (5-7) 09/13/22 06:33 Ur Specific [place] 1.020 (1.005-1.030) 09/13/22 06:33 Urine Protein Trace (Negative) 09/13/22 06:33 Urine Glucose (UA) Norm (Normal) 09/13/22 06:33 Urine Ketones Negative (Negative) 09/13/22 06:33 Urine Blood 2+ (Negative) H 09/13/22 06:33 Urine Nitrate Negative (Negative) 09/13/22 06:33 Urine Bilirubin Neg (Negative) 09/13/22 06:33 Urine Urobilinogen Neg mg/dL (Negative) 09/13/22 06:33 Ur Leukocyte Esterase 2+ (Negative) H 09/13/22 06:33 Urine RBC 5-10 /hpf (0-2) H 09/13/22 06:33 Urine WBC 15-25 /hpf (0-5) H 09/13/22 06:33 Ur Squamous Epith Cells 40-55 /hpf (0-5) H 09/13/22 06:33 Amorphous Sediment Not Reportable 09/13/22 06:33 Urine Bacteria 2+ /hpf (NONE) H 09/13/22 06:33 Urine Mucus 1+ /hpf 09/13/22 06:33 Discharge Plan Discharge Patient Disposition: Home Clinical Impression: Subchorionic hemorrhage Condition: Stable Prescriptions: No Action albuterol sulfate 90 mcg/actuation HFA aerosol inhaler 2 inh INHALATION Q4H PRN (Reason: shortness of breath or wheezing) Qty: 18 0RF promethazine 12.5 mg tablet 12.5 mg PO Q6H PRN (Reason: Nausea And Vomiting) sertraline 100 mg tablet 100 mg PO DAILY PNV [id number] fumarate-FA [] 28 mg iron- 800 mcg tablet 1 tab PO DAILY metoclopramide HCl 10 mg tablet 10 mg PO Q6H PRN (Reason: nausea and vomiting) Qty: 14 0RF Discharge Orders: Discharge ED (Routine); Ordered 09/13/22 Ordered By: Mikhail Katz Referrals: Bess Smith DO [Primary Care Provider] - Discharge Diet: Usual diet Discharge Activity: Limit activity as instructed Patient Instructions: Opioid Safety, Pain Management Activity Restrictions/Additional Instructions: You were seen today for vaginal spotting. You previously been diagnosed subchorionic hemorrhage. Your serum quantitative beta-hCG has risen appropriately. Recommend that you follow-up with your primary insurance attorney within the next week. If you are worsening or change symptoms return to the emergency room. Stand Alone Forms: Work/School Release Coding Level of Care Code ED Floor Service Worker [place] for Ester Whatley
[2022-09-13 06:38] LABS: Basophils % 0.4 %; Eosinophils # 0.1 10^3/uL (0.0-0.8); Eosinophils % 1.1 %; Hemoglobin 12.8 g/dL (11.5-15.3); Lymphocytes # 1.3 10^3/uL (0.8-4.8); Lymphocytes % 16.7 %; Mean Corpuscular HGB Conc 34.6 g/dL (30.0-36.0); Mean Corpuscular Hemoglobin 31.9 pg (28.0-34.0); Mean Corpuscular Volume 92.3 fl (81-99); Mean Platelet Volume 9.4 fL (7.4-10.4); Monocytes # 0.6 10^3/uL (0.2-0.9); Monocytes % 7.3 %; Neutrophils # 5.93 10^3/uL (1.8-7.7); Neutrophils % 74.2 %; Nucleated Red Blood Cells % 0 %; Platelet Count 215 10^3/cmm (130-400); Red Blood Count 4.01 10^6/uL (4.1-5.3); Red Cell Distribution Width 11.3 % (12.1-15.1)
[2022-09-13 06:40] VITALS: BP 129/67; RESP 16; O2SAT 95
[2022-09-13 06:45] LABS: Add Urine Microscopic? YES; Bilirubin Urine Neg (Negative); Blood Urine 2+ (Negative); Glucose Urine UA Norm (Normal); Ketones Urine Negative (Negative); Leukocyte Esterase Urine 2+ (Negative); Nitrate Urine Negative (Negative); Protein Urine Trace (Negative); Urine Color Yellow (Yellow); Urobilinogen Urine Neg (Negative); pH Urine 5 (5-7)
[2022-09-13 06:53] LABS: Add Urine Culture? No; Bacteria Urine 2+ /hpf; Mucus Urine 1+ /hpf; Squamous Epithelial Cell Urine 40-55 /hpf (0-5); WBC Urine 15-25 /hpf (0-5)
[2022-09-13 06:58] LABS: HCG, Serum Qual Positive (Negative)
[2022-09-13 08:32] VITALS: BP 129/67; PULSE 78; RESP 16; O2SAT 95
== END 2022-09-13 08:34 | disposition home or self-care (01) ==
PROVIDERS: Emergency Provider Family Medicine; PCP Family Medicine
DX: O46.90 Antepartum hemorrhage, unspecified, unspecified trimester (principal); Z3A.00 Weeks of gestation of pregnancy not specified
CPT/HCPCS: 81001; 84702; 84703; 85025; 99283

== ENCOUNTER 2022-10-21 08:02 | Emergency (ER) | payer MEDICAID, SELFPAY ==
[2022-10-21 08:06] VITALS: BP 102/62; PULSE 96; RESP 16; TEMP 36.8; O2SAT 99; BMI 20.9
--- NOTE | 2022-10-21 08:10 | W.ED.PREGNAN ---
HPI - General: Chief complaint: Abdominal Pain Stated complaint: 14 weeks preg abd pain Time Seen by Provider: 10/21/22 08:03 Source: patient Mode of arrival: ambulatory Limitations: no limitations History of Present Illness: Patient reportedly is a female at 14 weeks gestation here for complaints of lower abdominal/pelvic pain over the past 3 days. Patient states pain initially began and was intermittent but states it has progressed and now is fairly constant. Describes it as period cramping-like . She states she does have nausea and vomiting but states she has had this ever since early and has not changed. She is reporting normal bowel movements. No fevers. She reports some slight increase in vaginal discharge that she attributes to physiologic discharge of . She has not had any new sexual partners. No vaginal bleeding. She denies dysuria, urgency, hesitancy, or hematuria. She does report urinary frequency again that she attributes to . She is not having any flank pain. Patient is being followed by OB Dr. Smith. Complaint: abdominal pain Onset (ago): day(s) Pain Consistency: constant and intermittent Location: pelvis Severity: moderate Quality: Cramping Relieving factors: none Exacerbating factors: none Vaginal discharge: none Vaginal bleeding: none Patient : Yes OB History - Current : no complications OB History - Previous Pregnancies: miscarriage care: followed by OB (Dr. Smith) Associated symptoms: Reports abdominal pain, nausea (has had since ) and vomiting (has had since ); Deny dysuria, headache(s), malaise or vaginal discharge Review of Systems Const: Denies: fever(s), chills, body aches, fatigue or malaise Card: Denies: chest pain Resp: Denies: dyspnea GI: Reports: abdominal pain, nausea (has had since ) and vomiting (has had since ); Denies: change in bowel habits, rectal pain, hematochezia or melena : Reports: urinary frequency and pelvic pain; Denies: flank pain, difficulty voiding, dysuria, urinary urgency, urinary hesitancy, vaginal odor, vaginal bleeding or vaginal discharge Musc: Denies: neck pain, back pain, extremity pain or joint pain Skin/Breast: Denies: rash Neuro: Denies: headache(s), numbness in extremities, weakness in extremities or sensory changes PFSH ED PFSH: Medical History Acute pharyngitis Anxiety Asthma Chronic migraine without aura, intractable, with status migrainosus Surgical History H/O tympanostomy (~2001) S/P tonsillectomy (~2004) Age 5[address] Performed [address] Lombardo at [facility] Family History Mother Diabetes Hyperlipidemia Hypertension Stroke CAD (coronary artery disease) Social History Smoking and tobacco status: never smoked Alcohol intake: never Substance/Drug Use: never Physical Exam Const: COMMON NORMALS: no acute distress, average body habitus, patient oriented x3, no limitations, healthy appearing, alert and well nourished Resp: COMMON NORMALS: normal respiratory effort and clear to auscultation bilaterally AUSCULTATION: clear to auscultation bilaterally Cardio: COMMON NORMALS: regular rate and regular rhythm RATE: regular rate RHYTHM: regular rhythm GI: COMMON NORMALS: Normal to inspection, nondistended, normoactive bowel sounds present, Soft to palpation, No hepatosplenomegaly present and no masses INSPECTION: Yes normal to inspection and Yes gravid abdomen PALPATION: Yes Soft to palpation, Yes Tenderness to palpation present (GI) (throughout lower abdomen/pelvis), No Guarding due to palpation present (GI), No Rigid due to palpation and Yes No hepatosplenomegaly present : COMMON NORMALS: Yes no CVA tenderness BLADDER/KIDNEY EXAM: Yes no CVA tenderness Back/Pelvis: COMMON NORMALS: no CVA tenderness, thoracic and lumbar spine normal to inspection, no thoracic nor lumbar tenderness and thoraco-lumbar ROM normal Extremity: COMMON NORMALS: normal to inspection, no clubbing, cyanosis or edema, no calf tenderness and no pedal edema GENERAL: Yes normal exam except as noted Neuro: SRINIVAS COMA SCALE: document GCS findings [place] coma scale eye opening: Spontaneous [place] coma scale verbal response: Orientated Srinivas coma scale motor response: Obey commands [place] coma scale total score: 15 COMMON NORMALS: patient oriented x3 SENSORIUM/ORIENTATION: Yes alert Skin: COMMON NORMALS: no rashes or lesions noted GENERAL SKIN EXAM: no rashes or lesions noted Course Vital Signs: Vital signs: Vital Signs Temperature 98.2 F 10/21/22 08:06 Pulse Rate 78 10/21/22 10:32 Respiratory Rate 16 10/21/22 08:06 Blood Pressure 118/65 10/21/22 10:32 Pulse Oximetry 100 10/21/22 10:32 Oxygen Delivery Me thod Room Air 10/21/22 09:29 MDM - OB/Uterine Contractions Medical Decision Making Patient appears in no acute distress. Her vital signs are stable. Blood work overall is unremarkable. Her initial UA was contaminated with 15-25 squamous cells. Lab did comment on the presence of clue cells. Repeat urinalysis via straight cath was obtained which does not show any evidence for infection. Ultrasound showing a single IUP with visualized cardiac activity with dates at 14w5d. No evidence for placental abruption or previa. Cervix was long and closed. Patient has an appointment with her OB scheduled for tomorrow. Recommend she keep this appointment for re-evaluation. Patient will be placed on Flagyl for BV in . Lab Data 10/21/22 08:55 10/21/22 08:55 Radiology Impressions Ultrasound 10/21/22 08:15 IMPRESSION: 1. Single intrauterine with visualized cardiac activity. AGA 14w5d with JESUS 04/16/2023. 2. Placenta is anterior. No evidence of abruption or previa. 3. Cervix is long and closed. 4. Normal amniotic fluid volume. Laboratory Results WBC 10.7 10^3/uL (4.0-10.0) H 10/21/22 08:55 RBC 4.03 10^6/uL (4.1-5.3) L 10/21/22 08:55 Hgb 12.7 g/dL (11.5-15.3) 10/21/22 08:55 Hct 37.2 % (37.0-47.0) 10/21/22 08:55 MCV 92.3 fl (81-99) 10/21/22 08:55 MCH 31.5 pg (28.0-34.0) 10/21/22 08:55 MCHC 34.1 g/dL (30.0-36.0) 10/21/22 08:55 RDW 12.5 % (12.1-15.1) 10/21/22 08:55 Plt Count 241 10^3/cmm (130-400) 10/21/22 08:55 MPV 9.1 fL (7.4-10.4) 10/21/22 08:55 Neut % (Auto) 76.0 % 10/21/22 08:55 Lymph % (Auto) 16.1 % 10/21/22 08:55 [place] % (Auto) 5.4 % 10/21/22 08:55 Eos % (Auto) 1.5 % 10/21/22 08:55 Baso % (Auto) 0.6 % 10/21/22 08:55 Neut # (Auto) 8.15 10^3/uL (1.8-7.7) H 10/21/22 08:55 Lymph # (Auto) 1.7 10^3/uL (0.8-4.8) 10/21/22 08:55 [place] # (Auto) 0.6 10^3/uL (0.2-0.9) 10/21/22 08:55 Eos # (Auto) 0.2 10^3/uL (0.0-0.8) 10/21/22 08:55 Baso # (Auto) 0.1 10^3/uL (0.0-0.1) 10/21/22 08:55 Nucleated RBC % (auto) 0 % 10/21/22 08:55 Nucleated RBCs # 0.0 /100WBC 10/21/22 08:55 Sodium 136 mmol/L (136-145) 10/21/22 08:55 Potassium 3.7 mmol/L (3.5-5.1) 10/21/22 08:55 Chloride 104 mmol/L (98-107) 10/21/22 08:55 Carbon Dioxide 24 mmol/L (22-29) 10/21/22 08:55 Anion Gap 11.7 (5-19) 10/21/22 08:55 BUN 7 mg/dL (6-20) 10/21/22 08:55 Creatinine 0.3 mg/dL (0.5-0.9) L 10/21/22 08:55 GFR Calculation 275.7 mL/min (90-130) H 10/21/22 08:55 Glucose 62 mg/dL (65-115) L 10/21/22 08:55 Calculated Osmolality 278 mOsm/kg (285-295) L 10/21/22 08:55 Calcium 8.9 mg/dL (8.5-10.5) 10/21/22 08:55 Total Bilirubin 0.3 mg/dL (0.15-1.2) 10/21/22 08:55 AST 12 U/L (0-32) 10/21/22 08:55 ALT 11 U/L (0-33) 10/21/22 08:55 Alkaline Phosphatase 31 U/L (35-105) L 10/21/22 08:55 Total Protein 6.2 g/dL (6.6-8.7) L 10/21/22 08:55 Albumin 3.5 g/dL (3.5-5.2) 10/21/22 08:55 Globulin 2.7 g/dL (1.3-4.6) 10/21/22 08:55 Urine Color Straw (Yellow) 10/21/22 09:28 Urine Appearance Clear (CLEAR) 10/21/22 09:28 Urine pH 7 (5-7) 10/21/22 09:28 Ur Specific [place] 1.010 (1.005-1.030) 10/21/22 09:28 Urine Protein Neg (Negative) 10/21/22 09:28 Urine Glucose (UA) Norm (Normal) 10/21/22 09:28 Urine Ketones Negative (Negative) 10/21/22 09:28 Urine Blood Neg (Negative) 10/21/22 09:28 Urine Nitrate Negative (Negative) 10/21/22 09:28 Urine Bilirubin Neg (Negative) 10/21/22 09:28 Urine Urobilinogen Norm mg/dL (Negative) 10/21/22 09:28 Ur Leukocyte Esterase Negative (Negative) 10/21/22 09:28 Urine RBC 5-10 /hpf (0-2) H 10/21/22 08:30 Urine WBC 5-10 /hpf (0-5) H 10/21/22 08:30 Ur Squamous Epith Cells 15-25 /hpf (0-5) H 10/21/22 08:30 Amorphous Sediment Not Reportable 10/21/22 08:30 Urine Bacteria 2+ /hpf (NONE) H 10/21/22 08:30 Urine Mucus Trace /hpf 10/21/22 08:30 Discharge Plan Discharge Patient Disposition: Home Clinical Impression: Discomfort during , Bacterial vaginosis in Condition: Stable Prescriptions: New metronidazole 500 mg tablet 500 mg PO BID 7 Days Qty: 14 0RF No Action albuterol sulfate 90 mcg/actuation HFA aerosol inhaler 2 inh INHALATION Q4H PRN (Reason: shortness of breath or wheezing) Qty: 18 0RF sertraline 100 mg tablet 100 mg PO DAILY PNV cmb#95-ferrous fumarate-FA [] 28 mg iron- 800 mcg tablet 1 tab PO DAILY metoclopramide HCl 10 mg tablet 10 mg PO Q6H PRN (Reason: nausea and vomiting) Qty: 14 0RF acetaminophen 325 mg Capsule 325 mg PO QID PRN (Reason: Pain) Discharge Orders: Discharge ED (Routine); Ordered 10/21/22 Ordered By: Jacklyn Johnson Referrals: Bess Smith DO [Primary Care Provider] - Activity Restrictions/Additional Instructions: Please follow-up with your OB tomorrow as scheduled. You need to return to the emergency department for severe or worsening abdominal pains, fevers, severe flank pain, generally feeling worse or unwell, or any other concerns you may have. Stand Alone Forms: Work/School Release Coding Level of Care Code ED Pipelaying Fitter for Ester Whatley
--- NOTE | 2022-10-21 08:15 | US_ITS ---
WS: [id number] ULTRASOUND OB LIMITED TECHNIQUE: Complete ultrasound. CLINICAL INFORMATION: pain COMPARISON: None. FINDINGS: Cervix measures 4.7 cm Single interuterine gestation is identified with normal cardiac activity Placenta is anterior. Placenta grade 0. Normal amniotic fluid volume. cardiac activity: 153 BPM. RAJINDER 12.6 cm AGA: 14w5d JESUS by ultrasound: 04/16/2023 Estimated weight: 104 g; 0 lbs. 4 oz. BDP: 2.8 cm = 14w6d HC: 10.4 cm = 14w6d AC: 8.7 cm = 14w6d FEMUR LENGTH: 1.5 cm = 14w3d US/US OB >= 14 weeks fetus [id number] IMPRESSION: 1. Single intrauterine with visualized cardiac activity. AGA 14w5d w ith JESUS 04/16/2023. 2. Placenta is anterior. No evidence of abruption or previa. 3. Cervix is long and closed. 4. Normal amniotic fluid volume.
[2022-10-21 08:36] VITALS: BP 124/61; PULSE 83; O2SAT 98
[2022-10-21 08:56] LABS: Add Urine Microscopic? YES; Bilirubin Urine Neg (Negative); Blood Urine Trace (Negative); Glucose Urine UA Norm (Normal); Ketones Urine Negative (Negative); Leukocyte Esterase Urine 1+ (Negative); Nitrate Urine Negative (Negative); Protein Urine Neg (Negative); Urine Appearance Hazy (CLEAR); Urine Color Yellow (Yellow); Urobilinogen Urine Norm (Negative); pH Urine 7 (5-7)
[2022-10-21 08:58] VITALS: BP 124/61; PULSE 80; O2SAT 100
[2022-10-21 09:01] LABS: Basophils # 0.1 10^3/uL (0.0-0.1); Basophils % 0.6 %; Eosinophils # 0.2 10^3/uL (0.0-0.8); Eosinophils % 1.5 %; Hematocrit 37.2 % (37.0-47.0); Hemoglobin 12.7 g/dL (11.5-15.3); Lymphocytes # 1.7 10^3/uL (0.8-4.8); Lymphocytes % 16.1 %; Mean Corpuscular HGB Conc 34.1 g/dL (30.0-36.0); Mean Corpuscular Hemoglobin 31.5 pg (28.0-34.0); Mean Corpuscular Volume 92.3 fl (81-99); Mean Platelet Volume 9.1 fL (7.4-10.4); Monocytes # 0.6 10^3/uL (0.2-0.9); Monocytes % 5.4 %; Neutrophils # 8.15 10^3/uL (1.8-7.7); Nucleated Red Blood Cells % 0 %; Platelet Count 241 10^3/cmm (130-400); Red Blood Count 4.03 10^6/uL (4.1-5.3); Red Cell Distribution Width 12.5 % (12.1-15.1); White Blood Count 10.7 10^3/uL (4.0-10.0)
[2022-10-21 09:06] LABS: Add Urine Culture? No; Bacteria Urine 2+ /hpf; Mucus Urine TRACE /hpf; Squamous Epithelial Cell Urine 15-25 /hpf (0-5)
[2022-10-21 09:20] LABS: Alanine Aminotransferase 11 U/L (0-33); Albumin Level 3.5 g/dL (3.5-5.2); Alkaline Phosphatase 31 U/L (35-105); Anion Gap 11.7 (5-19); Aspartate Amino Transferase 12 U/L (0-32); Blood Urea Nitrogen 7 mg/dL (6-20); Calcium 8.9 mg/dL (8.5-10.5); Carbon Dioxide 24 mmol/L (22-29); Chloride 104 mmol/L (98-107); Globulin 2.7 g/dL (1.3-4.6); Glomerular Filtration Rate 275.7 mL/min (90-130); Glucose 62 mg/dL (65-115); Osmolality Calculated 278 mOsm/kg (285-295); Potassium 3.7 mmol/L (3.5-5.1); Sodium 136 mmol/L (136-145); Total Bilirubin 0.3 mg/dL (0.15-1.2); Total Protein 6.2 g/dL (6.6-8.7)
[2022-10-21 09:29] VITALS: BP 110/66; PULSE 77; O2SAT 100
[2022-10-21 09:37] LABS: Add Urine Microscopic? NO; Charge for UA Resulting for Rev
[2022-10-21 09:46] LABS: Urine Appearance Clear (CLEAR); Urine Color Straw (Yellow); pH Urine 7 (5-7)
[2022-10-21 09:47] LABS: Bilirubin Urine Neg (Negative); Blood Urine Neg (Negative); Glucose Urine UA Norm (Normal); Ketones Urine Negative (Negative); Leukocyte Esterase Urine Negative (Negative); Nitrate Urine Negative (Negative); Protein Urine Neg (Negative); Urobilinogen Urine Norm (Negative)
[2022-10-21 10:32] VITALS: BP 118/65; PULSE 78; O2SAT 100
== END 2022-10-21 10:25 | disposition home or self-care (01) ==
PROVIDERS: Emergency Provider Physician Assistant; PCP Family Medicine
DX: O23.592 Infection of other part of genital tract in pregnancy, second trimester (principal); B96.89 Other specified bacterial agents as the cause of diseases classified elsewhere; Z3A.14 14 weeks gestation of pregnancy
CPT/HCPCS: 76805; 80053; 81001; 81003; 85025; 99284

== ENCOUNTER 2022-11-01 13:08 | Emergency (ER) | payer MEDICAID, SELFPAY ==
[2022-11-01 13:18] VITALS: BP 105/69; PULSE 79; RESP 15; TEMP 36.9; O2SAT 99; BMI 22.8
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
[2022-11-01 14:52] LABS: Basophils # 0.1 10^3/uL (0.0-0.1); Basophils % 0.5 %; Eosinophils # 0.1 10^3/uL (0.0-0.8); Eosinophils % 1.1 %; Hemoglobin 11.8 g/dL (11.5-15.3); Lymphocytes # 2.3 10^3/uL (0.8-4.8); Lymphocytes % 19.4 %; Mean Corpuscular HGB Conc 33.7 g/dL (30.0-36.0); Mean Corpuscular Hemoglobin 31.5 pg (28.0-34.0); Mean Corpuscular Volume 93.3 fl (81-99); Mean Platelet Volume 9.6 fL (7.4-10.4); Monocytes # 0.7 10^3/uL (0.2-0.9); Monocytes % 5.8 %; Neutrophils # 8.78 10^3/uL (1.8-7.7); Neutrophils % 72.6 %; Nucleated Red Blood Cells % 0 %; Platelet Count 212 10^3/cmm (130-400); Red Blood Count 3.75 10^6/uL (4.1-5.3); Red Cell Distribution Width 12.4 % (12.1-15.1); White Blood Count 12.1 10^3/uL (4.0-10.0)
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
[2022-11-01 15:04] LABS: Urine Appearance Clear (CLEAR); Urine Color Yellow (Yellow)
[2022-11-01 15:05] LABS: Add Urine Culture? No; Add Urine Microscopic? YES; Bilirubin Urine Neg (Negative); Blood Urine 2+ (Negative); Glucose Urine UA Norm (Normal); Ketones Urine Negative (Negative); Leukocyte Esterase Urine 1+ (Negative); Nitrate Urine Negative (Negative); Protein Urine Neg (Negative); Urobilinogen Urine Norm (Negative); pH Urine 6 (5-7)
[2022-11-01 15:12] LABS: Alanine Aminotransferase 11 U/L (0-33); Albumin Level 3.6 g/dL (3.5-5.2); Alkaline Phosphatase 32 U/L (35-105); Anion Gap 15.8 (5-19); Aspartate Amino Transferase 12 U/L (0-32); Blood Urea Nitrogen 8 mg/dL (6-20); Calcium 8.8 mg/dL (8.5-10.5); Carbon Dioxide 21 mmol/L (22-29); Chloride 102 mmol/L (98-107); Globulin 2.8 g/dL (1.3-4.6); Glomerular Filtration Rate 275.7 mL/min (90-130); Glucose 70 mg/dL (65-115); Osmolality Calculated 277 mOsm/kg (285-295); Potassium 3.8 mmol/L (3.5-5.1); Sodium 135 mmol/L (136-145); Total Bilirubin 0.3 mg/dL (0.15-1.2); Total Protein 6.4 g/dL (6.6-8.7)
[2022-11-01 15:13] VITALS: BP 118/98; PULSE 71; O2SAT 100
[2022-11-01 16:06] VITALS: BP 120/80; PULSE 73; O2SAT 99
== END 2022-11-01 16:07 | disposition home or self-care (01) ==
PROVIDERS: Emergency Provider Emergency Medicine; PCP Family Medicine
DX: O9A.212 Injury, poisoning and certain other consequences of external causes complicating pregnancy, second trimester (principal); S09.8XXA Other specified injuries of head, initial encounter; V89.2XXA Person injured in unspecified motor-vehicle accident, traffic, initial encounter; Y92.410 Unspecified street and highway as the place of occurrence of the external cause; O99.282 Endocrine, nutritional and metabolic diseases complicating pregnancy, second trimester; E86.0 Dehydration; O26.892 Other specified pregnancy related conditions, second trimester; M54.2 Cervicalgia; Z3A.15 15 weeks gestation of pregnancy
CPT/HCPCS: 36415; 70450; 72125; 80053; 81001; 85025; 87086; 99284

== ENCOUNTER 2022-11-18 08:29 | Outpatient (CLI) | payer MEDICAID, SELFPAY ==
--- NOTE | 2022-11-18 08:36 | US_ITS ---
WS: [id number] OBSTETRICAL ULTRASOUND COMPLETE HISTORY: ENCOUNTER FOR SUPERVISION OF OTHER NORMAL , FIRST T COMPARISON: 08/18/2022 Single intrauterine gestation in Cephalic presentation. Cervix is not imaged. Normal amount of amniotic fluid surrounds the fetus. Placenta: Fundal and posterior Placenta grade 0 Heart: 147 BPM. Four chambers are identified. Normal LVOT. RVOT is not adequate. Anatomy: Intracranial structures and spine are normal. kidneys, stomach and urinary bladd er are unremarkable. Abdominal wall, three-vessel cord and cord insertion site are normal. 4 extremities are present. profile: Unremarkable. Gender: Male. measurements: BPD = 4.4 cm = 19w2d; HC = 16.1 cm = 19w0d; AC = 13.4 cm = 18w6d; FL = 2.9 cm = 18w6d; EFW: 263 g. Not available. Biometry is internally concordant. AGA by ultrasound: 19w0d JESUS by ultrasound: 04/14/2023 US/US OB >= 14 weeks fetus [id number] IMPRESSION: 1. Single intrauterine gestation of 19w0d with an JESUS of 04/14/2023. Appropria te growth since the prior study. 2. Limited visualization of the cardiac outflow tracts. Recommend reevaluation of the cardiac outflow tracts and the appropriate orientation. Axial and not c oronal orientation of the outflow tracts should be submitted. Recommend short-t erm follow-up. Recommended evaluation of the cervix and cervical length. 3. Remaining anatomy is negative.
== END 2022-11-18 08:30 | disposition home or self-care (01) ==
LOC: RAD 08:30
PROVIDERS: PCP Family Medicine; Visit Provider Family Medicine
DX: Z34.82 Encounter for supervision of other normal pregnancy, second trimester (principal); Z3A.19 19 weeks gestation of pregnancy
CPT/HCPCS: 76805

== ENCOUNTER 2022-11-28 07:33 | Outpatient (CLI) | payer MEDICAID, SELFPAY ==
--- NOTE | 2022-11-28 07:41 | US_ITS ---
WS: [id number] OB ultrasound, 11/28/2022 Clinical Data: FOLLOW UP FOR OTHER SCREENING Comparison: OB ultrasound, 11/18/2022 Findings: There is a single intrauterine in a variable lie presentation. The placenta is posterior an d grade 0. There is a normal amount of amnionic fluid. The cervix measures 3.84 cm and is closed. The heart rate is 141 beats per minute. The estimated gestational age is 19 weeks 3 days with an JESUS of approximately 04/21/2023. anatomy shows a four-chamber heart with visualization of the LVOT and RVOT[place] [id number] Impression: 1. Single intrauterine in a variable lie presentation. 2. Estimated gestational age 19 weeks 3 days with an JESUS of 04/21/2023. 3. heart rate 141 beats per minute.
== END 2022-11-28 07:34 | disposition home or self-care (01) ==
PROVIDERS: PCP Family Medicine; Visit Provider Family Medicine
DX: Z36.2 Encounter for other antenatal screening follow-up (principal)
CPT/HCPCS: 76816

== ENCOUNTER 2022-12-09 11:38 | Outpatient (CLI) | payer MEDICAID, SELFPAY ==
[2022-12-09 11:51] VITALS: BP 119/57; PULSE 80
[2022-12-09 12:11] VITALS: BP 116/59; PULSE 76
[2022-12-09 12:32] VITALS: BP 113/65; PULSE 87
[2022-12-09 12:48] VITALS: BP 113/65; PULSE 87; RESP 16; TEMP 36.6; BMI 24.7
[2022-12-10 00:38] VITALS: PULSE 133; O2SAT 98
[2022-12-10 00:39] VITALS: BP 136/78; PULSE 122; TEMP 36.3
[2022-12-10 00:43] VITALS: PULSE 130; O2SAT 98
== END 2022-12-09 12:35 | disposition home or self-care (01) ==
LOC: OPOB 11:40 → OBGYN 11:41
PROVIDERS: PCP Family Medicine; Visit Provider Family Medicine
DX: O26.899 Other specified pregnancy related conditions, unspecified trimester (principal); R10.9 Unspecified abdominal pain; Z3A.00 Weeks of gestation of pregnancy not specified
CPT/HCPCS: 59025; 99211

== ENCOUNTER 2022-12-19 10:36 | Outpatient (CLI) | payer MEDICAID, SELFPAY ==
--- NOTE | 2022-12-19 10:44 | US_ITS ---
WS: [id number] RIGHT UPPER QUADRANT ULTRASOUND HISTORY: RIGHT UPPER QUADRANT PAIN COMPARISON: 12/07/2019 Liver: 15.7 cm in length. Normal size liver and echogenicity. No bile duct dilatation or mass. Portal Vein: Normal hepatopetal flow with monophasic waveform. Gallbladder: Normally distended gallbladder with no stones or wall thickening. CBD: 0.3 cm Pancreas: Normal size and echogenicity. Right kidney: 10.9 cm in length. Normal size kidney. There is mild dilatation of the central renal pe lvis. No calyceal dilatation at this time. Aorta and IVC: Unremarkable abdominal aorta and IVC. No ascites. US/US abdomen limited [id number] IMPRESSION: 1. Very minimal fluid distention of the central RIGHT renal pelvis. No calycea l dilatation. 2. Otherwise normal RIGHT upper quadrant ultrasound.
== END 2022-12-19 10:37 | disposition home or self-care (01) ==
PROVIDERS: PCP Family Medicine; Visit Provider Family Medicine
DX: R10.11 Right upper quadrant pain (principal)
CPT/HCPCS: 76705

== ENCOUNTER 2023-01-23 13:31 | Outpatient (CLI) | payer MEDICAID, SELFPAY ==
[2023-01-23] VITALS (7 sets, daily range): BP systolic 105–126; BP diastolic 55–74; PULSE 80–87; RESP 16; BMI 26.3
[2023-01-23 14:22] LABS: Bilirubin Urine Neg (Negative); Blood Urine 2+ (Negative); Glucose Urine UA Norm (Normal); Ketones Urine Negative (Negative); Leukocyte Esterase Urine 2+ (Negative); Nitrate Urine Negative (Negative); Protein Urine Neg (Negative); Urine Appearance Hazy (CLEAR); Urine Color Yellow (Yellow); Urobilinogen Urine Norm (Negative); pH Urine 6.5 (5-7)
[2023-01-23 14:23] LABS: Add Urine Culture? No; Bacteria Urine 3+ /hpf; RBC Urine 0-4 /hpf (0-2); Squamous Epithelial Cell Urine 40-55 /hpf (0-5); WBC Urine >100 /hpf (0-5)
== END 2023-01-23 16:07 | disposition home or self-care (01) ==
LOC: OPOB 13:40 → OBGYN 13:42
PROVIDERS: PCP Family Medicine; Visit Provider Family Medicine
DX: O36.8190 Decreased fetal movements, unspecified trimester, not applicable or unspecified (principal); O46.90 Antepartum hemorrhage, unspecified, unspecified trimester; Z3A.00 Weeks of gestation of pregnancy not specified
CPT/HCPCS: 59025; 81001; 87086; 99211

== ENCOUNTER 2023-02-12 06:52 | Outpatient (CLI) | payer MEDICAID, SELFPAY ==
--- NOTE | 2023-02-12 | US_ITS ---
WS: [email or web address] LIMITED OBSTETRICAL ULTRASOUND HISTORY: Growth COMPARISON: 11/28/2022, 09/04/2022 Presentation: Vertex. Cervix: Closed and normal length. Placenta: Posterior, no previa or abruption Grade: 1 HEART: FHR of 144 BPM. measurements: BPD = 8.1 cm = 32w3d; 93% HC = 29.1 cm = 32w0d; 65% AC = 26.4 cm = 30w4d; 54% FL = 6.2 cm = 32w1d; 85% RAJINDER: 12.7 cm EFW: 1752 g; 72% AGA by ultrasound: 31w6d JESUS by ultrasound: 04/10/2023 IMPRESSION: 1. Single intrauterine gestation of 31 weeks 6 days with an EDC of 04/10/2023. 2. Estimated weight at the 72nd percentile. 3. BPD at the 93rd percentile for age. Abdominal circumference at the 54th percentile.
== END 2023-02-12 06:53 | disposition home or self-care (01) ==
LOC: RAD 06:53
PROVIDERS: PCP Family Medicine; Visit Provider Family Medicine
DX: O26.843 Uterine size-date discrepancy, third trimester (principal); Z3A.31 31 weeks gestation of pregnancy
CPT/HCPCS: 76815

== ENCOUNTER 2023-02-24 11:50 | Outpatient (CLI) | payer MEDICAID, SELFPAY ==
[2023-02-24 11:50] VITALS: BMI 27.3
[2023-02-24 12:06] VITALS: BP 126/68; PULSE 83
[2023-02-24 12:14] VITALS: RESP 16
[2023-02-24 12:26] VITALS: BP 127/74; PULSE 85
[2023-02-24 12:26] LABS: Basophils # 0.1 10^3/uL (0.0-0.1); Basophils % 0.3 %; Eosinophils # 0.1 10^3/uL (0.0-0.8); Eosinophils % 0.6 %; Hematocrit 32.4 % (36-47); Lymphocytes # 1.9 10^3/uL (0.8-4.8); Lymphocytes % 12.3 %; Mean Corpuscular HGB Conc 32.1 g/dL (30-55); Mean Corpuscular Hemoglobin 28.6 pg (27-33); Monocytes % 6.3 %; Neutrophils # 12.32 10^3/uL (1.8-7.7); Neutrophils % 78.2 %; Nucleated Red Blood Cells % 0 %; Platelet Count 211 10^3/cmm (157-399); Red Blood Count 3.64 10^6/uL (3.85-5.65); Red Cell Distribution Width 11.8 % (12.1-15.1); White Blood Count 15.75 10^3/uL (3.29-11.43)
[2023-02-24 12:40] LABS: Add Urine Culture? No; Bacteria Urine 3+ /hpf; Bilirubin Urine Neg (Negative); Blood Urine 2+ (Negative); Glucose Urine UA Norm (Normal); Ketones Urine 1+ (Negative); Leukocyte Esterase Urine 2+ (Negative); Nitrate Urine Negative (Negative); Protein Urine Neg (Negative); RBC Urine 0-4 /hpf (0-2); Squamous Epithelial Cell Urine 25-40 /hpf (0-5); Urine Appearance Hazy (CLEAR); Urine Color Yellow (Yellow); Urobilinogen Urine 1 mg/dL (Negative); WBC Urine 55-80 /hpf (0-5); pH Urine 6.5 (5-7)
[2023-02-24 12:45] LABS: Alanine Aminotransferase 8 U/L (0-33); Albumin Level 3.2 g/dL (3.5-5.2); Alkaline Phosphatase 85 U/L (35-105); Anion Gap 11.3 (5-19); Aspartate Amino Transferase 15 U/L (0-32); Blood Urea Nitrogen 5 mg/dL (6-20); Calcium 8.1 mg/dL (8.5-10.5); Carbon Dioxide 21 mmol/L (22-29); Chloride 101 mmol/L (98-107); Globulin 3.1 g/dL (1.3-4.6); Glomerular Filtration Rate 275.7 mL/min (90-130); Glucose 120 mg/dL (65-115); Osmolality Calculated 268 mOsm/kg (285-295); Potassium 3.3 mmol/L (3.5-5.1); Sodium 130 mmol/L (136-145); Total Bilirubin 0.3 mg/dL (0.15-1.2); Total Protein 6.3 g/dL (6.6-8.7)
[2023-02-24 12:46] VITALS: BP 122/73; PULSE 83
[2023-02-24 12:49] LABS: Urine Creatinine 134 mg/dL (28-217); Urine Protein Random 17 mg/dL
[2023-02-24 12:51] LABS: UPRO/UCREAT Ratio 0.13 mg/mg CR
[2023-02-24 13:06] VITALS: BP 122/73; PULSE 83
== END 2023-02-24 13:25 | disposition home or self-care (01) ==
LOC: OPOB 11:55 → OBGYN 11:56
PROVIDERS: PCP Family Medicine; Visit Provider Family Medicine
DX: O26.899 Other specified pregnancy related conditions, unspecified trimester (principal); Z3A.00 Weeks of gestation of pregnancy not specified; R80.9 Proteinuria, unspecified
CPT/HCPCS: 36415; 59025; 80053; 81001; 82570; 84156; 84550; 85025; 99211

== ENCOUNTER 2023-03-11 07:21 | Outpatient (CLI) | payer MEDICAID, SELFPAY ==
--- NOTE | 2023-03-11 07:25 | US_ITS ---
WS: [email or web address] LIMITED OBSTETRICAL ULTRASOUND HISTORY: UTERINE SIZE-DATE DISCREPANCY,THIRD TRIMESTER COMPARISON: 08/18/2022, 09/04/2022, 02/12/2023 Presentation: Vertex. Cervix: Closed and normal length. Placenta: Posterior and fundal. Grade: 2 HEART: FHR of 157 BPM. measurements: BPD = 8.9 cm = 35w5d; 88% HC = 31.9 cm = 35w6d; 60% AC = 31.7 cm = 35w5d; 90% FL = 6.9 cm = 35w4d; 76% Single vertical pocket amniotic fluid: 6.2 cm EFW: 2733 g; 85% AGA by ultrasound: 35w5d JESUS by ultrasound: 04/10/2023 IMPRESSION: 1. Single intrauterine gestation of 35 weeks 5 days with an EDC of 04/10/2023. Appropriate growth si nce the first trimester ultrasound. 2. BPD at the 88th percentile and the abdominal circumference at the 90th percentile. Fetus measurin g large for gestational age. 3. Estimated weight at the 85th percentile. 4. Posterior grade 2 placenta. 5. Normal amniotic fluid.
== END 2023-03-11 07:22 | disposition home or self-care (01) ==
LOC: RAD 07:21
PROVIDERS: PCP Family Medicine; Visit Provider Family Medicine
DX: Z36.87 Encounter for antenatal screening for uncertain dates (principal)
CPT/HCPCS: 76816

== ENCOUNTER 2023-03-14 10:39 | Outpatient (CLI) | payer MEDICAID, SELFPAY ==
[2023-03-14 10:40] VITALS: BMI 28.8
[2023-03-14 10:55] VITALS: BP 129/75; PULSE 75; RESP 16; TEMP 36.5
[2023-03-14 11:11] VITALS: BP 120/73; PULSE 82
[2023-03-14 11:32] VITALS: BP 118/58; PULSE 85
[2023-03-14 11:32] LABS: Urine Color Yellow (Yellow)
[2023-03-14] MEDS: ondansetron 4 MG Tablet PO (11:32)
[2023-03-14 11:33] LABS: Bacteria Urine TRACE /hpf; Bilirubin Urine Neg (Negative); Blood Urine Neg (Negative); Glucose Urine UA Norm (Normal); Ketones Urine Negative (Negative); Leukocyte Esterase Urine Negative (Negative); Nitrate Urine Negative (Negative); Protein Urine Neg (Negative); RBC Urine RARE /hpf (0-2); Specific Gravity, Urine 1.005 (1.005-1.030); Urine Appearance SL Hazy (CLEAR); Urobilinogen Urine Norm (Negative); pH Urine 7 (5-7)
[2023-03-14 11:51] VITALS: BP 120/66; PULSE 69
[2023-03-14] MEDS: sodium chloride 0.9% 1,000 ML 999 ML IV (12:03)
--- NOTE | 2023-03-14 12:59 | PC.NURSE ---
IV STARTED IN RIGHT FOREARM WITH #20 ON THIRD ATTEMPT. 2 ATTEMPTS BY LIAM OREILLY RN.
[2023-03-14 13:16] VITALS: BP 118/65; PULSE 69
[2023-03-14 13:20] VITALS: BP 118/65; PULSE 69
--- NOTE | 2023-03-14 13:39 | PC.NURSE ---
IV DISCONTINUED WITH CATH INTACT PRIOR TO DISCHARGE.
== END 2023-03-14 13:20 | disposition home or self-care (01) ==
LOC: OPOB 10:40 → OBGYN 10:41 → OPOB 10:45 → OBGYN 10:48
PROVIDERS: PCP Family Medicine; Visit Provider Family Medicine
DX: O21.9 Vomiting of pregnancy, unspecified (principal); Z3A.00 Weeks of gestation of pregnancy not specified
CPT/HCPCS: 59025; 81001; 99211; J7030; Q0162

== ENCOUNTER 2023-03-23 21:10 | Outpatient (CLI) | payer MEDICAID, SELFPAY ==
[2023-03-23] VITALS (11 sets, daily range): BP systolic 131–139; BP diastolic 73–82; PULSE 74–82; TEMP 36.5; BMI 30.4
[2023-03-23 22:58] LABS: Urine Appearance Clear (CLEAR); Urine Color Yellow (Yellow)
[2023-03-23 22:59] LABS: Add Urine Culture? No; Amorphous Sediment Urine 1+ /hpf; Bacteria Urine 1+ /hpf; Bilirubin Urine Neg (Negative); Blood Urine Neg (Negative); Glucose Urine UA Norm (Normal); Ketones Urine 1+ (Negative); Leukocyte Esterase Urine 2+ (Negative); Nitrate Urine Negative (Negative); Protein Urine Neg (Negative); RBC Urine 0-4 /hpf (0-2); Squamous Epithelial Cell Urine 25-40 /hpf (0-5); Urobilinogen Urine Neg (Negative); pH Urine 8 (5-7)
[2023-03-24] VITALS (20 sets, daily range): BP systolic 105–140; BP diastolic 55–87; PULSE 67–92; TEMP 36.2
[2023-03-24] MEDS: lactated ringers 1,000 ML 999 ML (00:11)
[2023-03-24] MEDS: dextrose 5%-lactated ringers 1,000 ML 125 ML IV (06:33)
[2023-03-24] MEDS: acetaminophen 500 mg Tablet 1000 MG PO (08:22)
--- NOTE | 2023-03-24 12:34 | P.TNLD_ITS ---
OB L&D Triage Visit Information: Date of evaluation: 03/24/23 Reason for evaluation: other (Contractions) Comments/Additional reason(s) for visit: 23 yo F at 36w0d presenting for contractions starting at 4pm. Denies LOF, vaginal bleeding. Good movement. Reports contractions started further apart and milder pain but have gradually increased to be more painful and closer together and so decided to come in. Since presenting to L&D contractions initially were unchanged but have gradually improved in pain and spaced out to every 10-15 minutes. She has had some spotting after vaginal exam but no other change in symptoms. Evaluation: monitor accelerations: Present 15x15 Cervical dilation (cm): 1 Cervical effacement (%): 50 station: -2 Laboratory results: Laboratory Tests 03/23/23 21:57 Urine Color Yellow Urine Appearance Clear Urine pH 8 H Ur Specific Gravit y 1.010 Urine Protein Neg Urine Glucose (UA) Norm Urine Ketones 1+ H Urine Blood Neg Urine Nitrate Negative Urine Bilirubin Neg Urine Urobilinogen Neg Ur Leukocyte Archana ase 2+ H Urine RBC 0-4 H Urine WBC 5-10 H Ur Squamous Epith Cells 25-40 H Amorphous Sediment 1+ Urine Bacteria 1+ H Vital signs: Vital Signs - 24 hr 03/23/23 21:21 03/23/23 21:20 03/23/23 21:37 Temperature 97.7 F Pulse Rate 79 82 Blood Pressure 138/78 138/80 Oxygen Delivery Me thod 03/23/23 21:51 03/23/23 22:07 03/23/23 22:22 Temperature Pulse Rate 77 76 77 Blood Pressure 133/76 131/73 134/75 Oxygen Delivery Me thod 03/23/23 22:36 03/23/23 22:50 03/23/23 23:05 Temperature Pulse Rate 75 80 75 Blood Pressure 135/80 132/78 139/82 Oxygen Delivery Me thod 03/23/23 23:21 03/23/23 23:37 03/24/23 00:06 Temperature Pulse Rate 74 76 75 Blood Pressure 134/80 137/80 134/84 Oxygen Delivery Me thod 03/24/23 00:22 03/24/23 00:36 03/24/23 00:51 Temperature Pulse Rate 70 67 68 Blood Pressure 138/83 132/82 129/80 Oxygen Delivery Me thod 03/24/23 01:07 11/06/23 01:19 03/24/23 01:21 Temperature Pulse Rate 68 72 70 Blood Pressure 136/69 140/87 135/82 Oxygen Delivery Me thod 03/24/23 01:36 03/24/23 01:51 03/24/23 05:46 Temperature 97.2 F L Pulse Rate 72 69 76 Blood Pressure 139/82 136/81 131/74 Oxygen Delivery Me thod 03/24/23 05:43 03/24/23 06:01 03/24/23 06:16 Temperature Pulse Rate 71 69 Blood Pressure 111/67 105/55 Oxygen Delivery Me thod Room Air 03/24/23 06:33 03/24/23 06:48 03/24/23 07:02 Temperature Pulse Rate 71 68 69 Blood Pressure 126/77 113/64 127/82 Oxygen Delivery Me thod 03/24/23 06:32 03/24/23 09:29 03/24/23 09:44 Temperature Pulse Rate 86 92 Blood Pressure 134/63 129/55 Oxygen Delivery Me thod Room Air 03/24/23 11:54 03/23/23 22:10 Temperature Pulse Rate 79 Blood Pressure 125/70 Oxygen Delivery Me thod Room Air Final Diagnosis Final Diagnosis (1) labor in third trimester: Plan: 23yo female at 36w0d under observation for labor. Initially with SVE c/t/h and gradually changed over 4 hours to 1/50/-3 with continuing painful contractions. Admitted for observation and observed subsequently for approx 12 hours with noted improvement in her contractions and no further cervical change. FHT Category 1 throughout stay. She was given an initial dose of betamethasone 1 2 mg and GBS swab collected. Plan to discharge home with return precautions. She is to follow-up in office tomorrow as well as return to L&D for 2nd dose betamethasone 24 hours after initial dose. Status: Acute Code(s): O60.03 - labor without delivery, third trimester Coding Level of Care Code Acute Code for Chg Fwd Diagnoses labor in third trimester O60.03
[2023-03-24] MEDS: betamethasone susp 6 mg/mL 1 mL (per mL) 12 MG IM (12:44)
[2023-03-24] MEDS: ondansetron 4 MG Tablet PO (12:44)
== END 2023-03-24 13:16 | disposition home or self-care (01) ==
LOC: OPOB 21:10 → OBGYN 21:11
PROVIDERS: PCP Family Medicine; Visit Provider Family Medicine
DX: O26.899 Other specified pregnancy related conditions, unspecified trimester (principal); Z3A.00 Weeks of gestation of pregnancy not specified; R10.9 Unspecified abdominal pain
CPT/HCPCS: 36415; 59025; 81001; 87081; 96372; 99211; J0702; J7120; J7121; Q0162

== ENCOUNTER 2023-03-25 12:48 | Outpatient (CLI) | payer MEDICAID, SELFPAY ==
[2023-03-25 13:06] VITALS: BMI 30.8
[2023-03-25 13:10] VITALS: BP 132/75; PULSE 82
[2023-03-25 13:11] VITALS: TEMP 36.6
[2023-03-25 13:27] VITALS: BP 133/79; PULSE 79
[2023-03-25 13:41] VITALS: BP 131/77; PULSE 76
[2023-03-25] MEDS: betamethasone susp 6 mg/mL 1 mL (per mL) 12 MG IM (13:53)
[2023-03-25 13:54] VITALS: BP 132/79; PULSE 82
[2023-03-25 14:00] VITALS: BP 132/79; PULSE 82
== END 2023-03-25 14:00 | disposition home or self-care (01) ==
LOC: OPOB 12:52 → OBGYN 12:53
PROVIDERS: PCP Family Medicine; Visit Provider Family Medicine
DX: O26.899 Other specified pregnancy related conditions, unspecified trimester (principal); Z3A.00 Weeks of gestation of pregnancy not specified
CPT/HCPCS: 59025; 96372; 99211; J0702

== ENCOUNTER 2023-03-31 14:19 | Outpatient (CLI) | payer MEDICAID, SELFPAY ==
[2023-03-31] VITALS (15 sets, daily range): BP systolic 114–143; BP diastolic 63–88; PULSE 86–115; RESP 16–18; BMI 31.0
[2023-03-31 15:30] LABS: Add Urine Microscopic? NO; Charge for UA Resulting for Rev
[2023-03-31 15:32] LABS: Basophils % 0.3 %; Eosinophils # 0.4 10^3/uL (0.0-0.8); Eosinophils % 3.2 %; Lymphocytes # 1.8 10^3/uL (0.8-4.8); Lymphocytes % 16.2 %; Mean Corpuscular HGB Conc 30.7 g/dL (30-55); Mean Corpuscular Hemoglobin 25.6 pg (27-33); Mean Corpuscular Volume 83.6 fl (85-98); Monocytes # 1.2 10^3/uL (0.2-0.9); Monocytes % 10.5 %; Neutrophils # 7.55 10^3/uL (1.8-7.7); Neutrophils % 68.5 %; Nucleated Red Blood Cells % 0 %; Platelet Count 266 10^3/cmm (157-399); Red Blood Count 3.59 10^6/uL (3.85-5.65); Red Cell Distribution Width 12.7 % (12.1-15.1); White Blood Count 11.01 10^3/uL (3.29-11.43)
[2023-03-31 15:45] LABS: Bilirubin Urine Neg (Negative); Blood Urine Neg (Negative); Glucose Urine UA Norm (Normal); Ketones Urine Negative (Negative); Leukocyte Esterase Urine Negative (Negative); Nitrate Urine Negative (Negative); Protein Urine Neg (Negative); Sulfosalicylic Acid Urine Negative (Negative); Urine Appearance Clear (CLEAR); Urine Color Yellow (Yellow); Urobilinogen Urine Neg (Negative); pH Urine 9 (5-7)
[2023-03-31 15:50] LABS: D Dimer 1.49 ug/mLFEU (0-0.59)
[2023-03-31 15:51] LABS: Alanine Aminotransferase 8 U/L (0-33); Albumin Level 3.1 g/dL (3.5-5.2); Alkaline Phosphatase 106 U/L (35-105); Aspartate Amino Transferase 15 U/L (0-32); Blood Urea Nitrogen 8 mg/dL (6-20); Calcium 8.4 mg/dL (8.5-10.5); Carbon Dioxide 24 mmol/L (22-29); Chloride 106 mmol/L (98-107); Globulin 2.7 g/dL (1.3-4.6); Glomerular Filtration Rate 151.6 mL/min (90-130); Glucose 80 mg/dL (65-115); Osmolality Calculated 281 mOsm/kg (285-295); Sodium 137 mmol/L (136-145); Total Bilirubin 0.2 mg/dL (0.15-1.2); Total Protein 5.8 g/dL (6.6-8.7); Uric Acid 4.7 mg/dL (2.4-5.7)
[2023-03-31 16:08] LABS: Urine Creatinine 64 mg/dL (28-217); Urine Protein Random 17 mg/dL
[2023-03-31 16:11] LABS: UPRO/UCREAT Ratio 0.27 mg/mg CR
== END 2023-03-31 17:50 | disposition home or self-care (01) ==
LOC: OPOB 14:20 → OBGYN 14:22
PROVIDERS: Family Medicine; PCP Family Medicine; Visit Provider Family Medicine
DX: O36.8190 Decreased fetal movements, unspecified trimester, not applicable or unspecified (principal); O16.9 Unspecified maternal hypertension, unspecified trimester; R07.9 Chest pain, unspecified; Z3A.00 Weeks of gestation of pregnancy not specified
CPT/HCPCS: 36415; 59025; 80053; 81003; 82570; 84156; 84550; 85025; 85378; 99211

== ENCOUNTER 2023-04-01 20:59 | Outpatient (CLI) | payer MEDICAID, SELFPAY ==
[2023-04-01 20:50] VITALS: BMI 30.4
[2023-04-01 21:02] VITALS: BP 133/82; PULSE 110
[2023-04-01 21:20] VITALS: RESP 17
[2023-04-01 21:23] VITALS: BP 133/78; PULSE 92
[2023-04-01 21:43] VITALS: BP 136/77; PULSE 94
[2023-04-01 22:03] VITALS: BP 133/77; PULSE 90
[2023-04-01 22:10] VITALS: BP 133/77; PULSE 90
== END 2023-04-01 22:10 | disposition home or self-care (01) ==
LOC: OPOB 21:00 → OBGYN 21:01
PROVIDERS: PCP Family Medicine; Visit Provider Family Medicine
DX: O26.859 Spotting complicating pregnancy, unspecified trimester (principal); Z3A.00 Weeks of gestation of pregnancy not specified
CPT/HCPCS: 59025; 99211

== ENCOUNTER 2023-04-02 08:50 | Inpatient (IN) | payer MEDICAID, SELFPAY ==
[2023-04-01 21:20] VITALS: RESP 17
[2023-04-02] VITALS (43 sets, daily range): BP systolic 130–146; BP diastolic 70–89; PULSE 81–109; RESP 15–18; TEMP 36.3–36.9; O2SAT 97–100; BMI 30.4
[2023-04-02 09:28] LABS: Total Volume, Urine 2050 mL
--- NOTE | 2023-04-02 15:49 | PM.OBGYHP ---
Providers/Chief Complaint Admitting Physician: Bess Smith DO Primary Care Provider: Bess Smith DO Chief Complaint: elevated blood pressure HPI [employer] History of Present Illness Jennifer Hong is a 23 year old female at 37w2d by sure LMP c/w 1st trimestr US presenting for NST, blood pressure check, and 24 hour urine protein with PMHx depression, childhood asthma, vasovagal syncope. She is found in triage to have elevated 24 hour urine protein and mildly elevated blood pressures with new diagnosis of pre-eclampsia without severe features. She reports continuing mild contractions every 10-15 minutes, no change in vaginal discharge. She does report some spotting since being checked yesterday but has decreased and hasn't had for several hours. Reports normal movement. Denies LOF. She reports a mild chronic headache, denies vision changes, RUQ pain, increase in LE edema. care has been good and starting in the first trimester. care complicated by labor at approx 36 weeks for which she did receive 2 doses betamethasone without subsequent delivery. Present Details : 5 Para: 0 Labs Blood type OB HPI: A (+) positive Rubella: Immune RPR: Negative GBS: Negative HBsAG: Negative Other Lab Information: HCV Ab NR HIV negative Initial H/H 12.7/36.6 GC/chlam negative Pap smear 10/09/20 NILM 1hr GTT passed 131 3rd trimester H/H 11.6/32.2 CF screen negative for 32 mutations Review of Systems Const: Denies: fever(s), chills or body aches Eyes: Denies: change in vision, blurry vision, blind spots, floaters or seeing flashes Card: Reports: other (chest pressure); Denies: chest pain, palpitations, dyspnea on exertion, orthopnea or leg pain with exertion Resp: Denies: dyspnea, wheezing or pain on inspiration GI: Reports: nausea and vomiting; Denies: abdominal pain Medications/Allergies Home Medications Medication Instructions Recorded Confirmed Last Taken Type albuterol sulfate 90 mcg/actuation 2 inh inhalation Q4H PRN shortness 06/28/20 03/24/23 Unknown Rx aerosol inhaler of breath or wheezing #18 grams vit no.95-ferrous 1 tab PO DAILY 08/29/22 03/24/23 03/23/23 History fumarate 28 mg-folic acid 800 mcg tablet () sertraline 100 mg tablet 100 mg PO DAILY 08/29/22 03/24/23 03/23/23 History Allergies Allergy/AdvReac Type Severity Reaction Status Date / Time morphine Allergy ALGY-Anaphy Verified 03/24/23 00:47 laxis coconut AdvReac Mild rash and Verified 03/24/23 00:47 anaphylaxis symptoms PFSH [employer] PFSH: Medical History (Updated 04/03/23 @ 08:46 by Bess Smith DO) Acute pharyngitis Anxiety Asthma Chronic migraine without aura, intractable, with status migrainosus Surgical History (Updated 04/03/23 @ 08:37 by Bess Smith DO) H/O tympanostomy (~2001) Hx of appendectomy S/P tonsillectomy (~2004) Age 5[address] Performed by [address] Lombardo at [facility] Family History Mother Diabetes Hyperlipidemia Hypertension Stroke CAD (coronary artery disease) Social History Smoking and tobacco/nicotine status: never used tobacco/nicotine Alcohol intake: never Substance/Drug Use: never History History History 2 Term 0 0 Miscarriages/Ectopic 1 Living Children 0 Vitals/I&O/Wt Last Vital Signs Temp 97.9 F 04/02/23 15:29 Pulse 107 H 04/02/23 15:29 Resp 16 04/02/23 13:22 BP 130/77 04/02/23 15:29 Pulse Ox 97 04/02/23 15:29 Weight last 48 hrs Weight 194 lb Physical Exam Const: COMMON NORMALS: no acute distress, patient oriented x3, alert and well nourished Chest: CHEST: Yes tenderness Resp: COMMON NORMALS: normal respiratory effort and clear to auscultation bilaterally Cardio: COMMON NORMALS: regular rate, regular rhythm, S1 normal heart sound present, S2 normal heart sound present and No murmurs present (Cardio) : OTHER: gravid Extremity: NARRATIVE EXTREMITY EXAM: trace pitting LE edema Psych: COMMON NORMALS: mental status grossly normal and speech normal Data 04/03/23 03:50 04/03/23 03:50 Results Labs OB ([facility]): Obstetrics US 03/11/23 Blood Type A Positive 04/03/23 Antibody Screen Negative 04/03/23 Hct 31.1 % (36-47) L 04/03/23 Hgb 9.70 g/dL (11.27-16.99) L 04/03/23 Rho(D) Type Rh positive 04/03/23 Plt Count 245 10^3/cmm (157-399) 04/03/23 Uric Acid 5.0 mg/dL (2.4-5.7) 04/03/23 Ser , Semi-Qnt 202513.00 mIU/mL 09/13/22 HCG, Qual Positive (Negative) H 09/13/22 Urine Opiates Screen NEGATIVE ng/mL (NEGATIVE) 03/09/19 Ur Barbiturates Screen NEGATIVE ng/mL (NEGATIVE) 03/09/19 Ur Phencyclidine Scrn NEGATIVE ng/mL (NEGATIVE) 03/09/19 Ur Amphetamines Screen NEGATIVE ng/mL (NEGATIVE) 03/09/19 U Benzodiazepines Scrn NEGATIVE ng/mL (NEGATIVE) 03/09/19 Urine Cocaine Screen NEGATIVE ng/mL (NEGATIVE) 03/09/19 U Marijuana (THC) Screen POSITIVE ng/mL (NEGATIVE) H 03/09/19 Micro Urine Specimen 01/23/23 Pap Smear Interpret See note 10/09/20 A&P Assessment and plan (1) Pre-eclampsia: (2) Term : Plan 23yo at 37w2d admitted for pre-eclampsia without severe features. 24 hour urine protein is elevated along with mild range BPs. CBC, CMP reviewed from Friday. Plan for induction of labor when able. Plan to repeat CBC and CMP with start of induction. Discussed with patient monitoring for severe features. NST q4hrs, vital signs q2hr. May have diet until start of induction. Attestations Medical Necessity Statement*: Jennifer Hong's hospital stay will require greater than 2 midnights for labor and delivery and care. Coding Level of Care Code Acute Code for Chg Fwd Diagnoses Pre-eclampsia O14.90 Term Z34.90
[2023-04-03] VITALS (64 sets, daily range): BP systolic 122–167; BP diastolic 63–101; PULSE 73–141; RESP 14–16; TEMP 35.8–37.1; O2SAT 97–100
[2023-04-03 04:01] LABS: Basophils % 0.3 %; Eosinophils # 0.3 10^3/uL (0.0-0.8); Eosinophils % 2.1 %; Hematocrit 31.1 % (36-47); Lymphocytes # 2.9 10^3/uL (0.8-4.8); Mean Corpuscular HGB Conc 31.2 g/dL (30-55); Mean Corpuscular Volume 83.4 fl (85-98); Monocytes # 0.9 10^3/uL (0.2-0.9); Monocytes % 7.2 %; Neutrophils # 7.82 10^3/uL (1.8-7.7); Neutrophils % 65.6 %; Nucleated Red Blood Cells % 0 %; Platelet Count 245 10^3/cmm (157-399); Red Blood Count 3.73 10^6/uL (3.85-5.65); White Blood Count 11.92 10^3/uL (3.29-11.43)
[2023-04-03 04:30] LABS: Alanine Aminotransferase 10 U/L (0-33); Albumin Level 3.1 g/dL (3.5-5.2); Alkaline Phosphatase 120 U/L (35-105); Anion Gap 13.9 (5-19); Aspartate Amino Transferase 12 U/L (0-32); Blood Urea Nitrogen 8 mg/dL (6-20); Calcium 8.5 mg/dL (8.5-10.5); Carbon Dioxide 24 mmol/L (22-29); Chloride 105 mmol/L (98-107); Globulin 2.8 g/dL (1.3-4.6); Glomerular Filtration Rate 151.6 mL/min (90-130); Glucose 78 mg/dL (65-115); Osmolality Calculated 285 mOsm/kg (285-295); Potassium 3.9 mmol/L (3.5-5.1); Sodium 139 mmol/L (136-145); Total Bilirubin 0.2 mg/dL (0.15-1.2); Total Protein 5.9 g/dL (6.6-8.7)
[2023-04-03] MEDS: dextrose 5%-lactated ringers 1,000 ML 125 ML IV (04:43)
[2023-04-03] MEDS: ondansetron 2 mg/ML SDV 2 mL 4 MG IVP (04:44)
[2023-04-03] MEDS: acetaminophen 325 mg Tablet 650 MG PO (04:49)
[2023-04-03] MEDS: oxytocin 30 UNIT/500 ML BAG IV (05:16)
--- NOTE | 2023-04-03 07:40 | P.PN_ITS ---
[employer] Subjective Subjective: Interval history: Patient seen and examined this morning. Overnight patient with SROM with clear fluid at approx 3:30am. Pitocin initiated. She reports contractions are increasing, chest pressure she has had previously is still present but much improved. Reports continuing tension headache- no improvement thus far with tylenol. She is also having her usual nausea and vomiting this morning as well. Denies RUQ, changes in vision, LE edema. Reports normal movement, denies VB. Labor: Station: -2 Amniotic Membrane Status: Ruptured Monitor Mode : External Contraction Pattern: Regular Status: Category I Vitals/I&O/Wt Last Vital Signs Temp 97.9 F 04/03/23 05:00 Pulse 73 04/03/23 06:42 Resp 15 04/03/23 05:00 BP 137/80 04/03/23 06:42 Pulse Ox 98 04/02/23 18:47 O2 Del Method Room Air 04/03/23 03:35 Weight last 48 hrs Weight 194 lb Physical Exam Const: COMMON NORMALS: no acute distress, patient oriented x3, alert and well nourished Chest: CHEST: Yes tenderness Resp: COMMON NORMALS: normal respiratory effort and clear to auscultation bilaterally AUSCULTATION: clear to auscultation bilaterally Cardio: COMMON NORMALS: regular rate, regular rhythm, S1 normal heart sound present, S2 normal heart sound present and No murmurs present (Cardio) RATE: regular rate RHYTHM: regular rhythm HEART SOUNDS: S1 normal heart sound present and S2 normal heart sound present : OTHER: gravid Extremity: NARRATIVE EXTREMITY EXAM: No LE edema Neuro: COMMON NORMALS: patient oriented x3 SENSORIUM/ORIENTATION: Yes alert Psych: COMMON NORMALS: mental status grossly normal and speech normal SPEECH: Yes normal speech Data 04/03/23 03:50 04/03/23 03:50 A&P Assessment and plan (1) Pre-eclampsia: (2) Term : (3) Spontaneous rupture of amniotic membranes: Plan 23yo at 37w3d admitted for IOL for pre-eclampsia without severe features. 24 hour urine protein is elevated along with mild range BPs. CBC, CMP unchanged from Friday. Started on pitocin due to SROM overnight. Continuous EFM. Routine vital signs- BP monitoring. May have epidural when desired. Fentanyl protocol. Anti-emetics for nausea/vomiting. Discussed may be contributing to headache. Attestations Medical Necessity Statement*: Jennifer Hong's hospital stay will require greater than 2 midnights for labor and delivery and care. Coding Level of Care Code Acute Code for Chg Fwd Diagnoses Pre-eclampsia O14.90 Term Z34.90 Spontaneous rupture of amniotic membranes
[2023-04-03] MEDS: metoclopramide 5 mg/mL SDV 2 mL 10 MG IV (07:48)
[2023-04-03] MEDS: lactated ringers 1,000 ML 999 ML IV (10:19)
--- NOTE | 2023-04-03 10:50 | P.ANESASSM_ITS ---
Pre-Anesthetic Assessment Height/Weight: Height 1.7 m Weight 87.997 kg Temp Pulse Resp BP Pulse Ox O2 Del Method 97.0 F L 111 H 16 154/79 100 Room Air 04/03/23 07:51 04/03/23 12:44 04/03/23 11:00 04/03/23 12:44 04/03/23 11:18 04/03/23 03:35 Epidural Familial anesthetic complications: None Was Beta Li taken within 24 hours: N/A Was Clonidine taken within 24 hours: N/A Social No alcohol and No tobacco Exam alert, oriented x 3, clear to auscultation bilaterally and regular rate & rhythm Anesthetic Plan ASA status: 2 Anesthesia: Regional (specify below) Risk of > 500 ml blood loss (7ml/kg in children): No Medications/Allergies Home Medications Medication Instructions Recorded Confirmed Last Taken Type albuterol sulfate 90 mcg/actuation 2 inh inhalation Q4H PRN shortness 06/28/20 03/24/23 Unknown Rx aerosol inhaler of breath or wheezing #18 grams vit no.95-ferrous 1 tab PO DAILY 08/29/22 03/24/23 03/23/23 History fumarate 28 mg-folic acid 800 mcg tablet () sertraline 100 mg tablet 100 mg PO DAILY 08/29/22 03/24/23 03/23/23 History Allergies Allergy/AdvReac Type Severity Reaction Status Date / Time morphine Allergy ALGY-Anaphy Verified 03/24/23 00:47 laxis coconut AdvReac Mild rash and Verified 03/24/23 00:47 anaphylaxis symptoms Current Medications Generic Name Dose Route Start Last Admin Trade Name Luanq PRN Reason Stop Dose Admin Acetaminophen 650 mg 04/02/23 11:21 04/03/23 04:49 Acetaminophen 325 Mg Tablet PO 650 mg Q6H PRN Administration MILD TO MODERATE PAIN Dextrose/Lactated Ringer's 1,000 mls @ 125 mls/hr 04/02/23 11:21 04/03/23 04:43 Dextrose 5%-Lactated Ringers IV 125 mls/hr .Q8H PRN Administration per label comments Oxytocin 30 unit in 500 mls @ 1 mls/hr 04/03/23 03:45 04/03/23 09:25 Pitocin IV 4 milliunit/min .Q24H MARISSA 4 mls/hr Titration Protocol 1 MILLIUNIT/MIN Oxytocin 30 unit in 500 mls @ 1 mls/hr 04/03/23 03:45 04/03/23 08:12 Pitocin IV Not Given .Q24H MARISSA Protocol 1 MILLIUNIT/MIN Lactated Ringer's 1,000 mls @ 999 mls/hr 04/03/23 10:13 04/03/23 11:50 Lactated Ringers IV Infused .Q1H1M PRN Infusion See label comments Ropivacaine 100 mg in 50 mls @ 10 mls/hr 04/03/23 10:15 04/03/23 11:18 Naropin Syringe EPIDURAL 10 mls/hr .Q5H MARISSA Administration Ondansetron HCl 4 mg 04/02/23 11:21 04/03/23 04:44 Ondansetron 2 Mg/Ml Sdv 2 Ml IVP 4 mg Q4H PRN Administration NAUSEA AND VOMITING PFSH Anesthesia Medical History (Updated 04/03/23 @ 09:00 by Bess Smith DO) Acute pharyngitis Anxiety Asthma Chronic migraine without aura, intractable, with status migrainosus Surgical History (Updated 04/03/23 @ 08:37 by Bess Smith DO) H/O tympanostomy (~2001) Hx of appendectomy S/P tonsillectomy (~2004) Age 5[address] Performed by [address] Lombardo at [facility] Family History Mother Diabetes Hyperlipidemia Hypertension Stroke CAD (coronary artery disease) Social History Smoking and tobacco/nicotine status: never used tobacco/nicotine Alcohol intake: never Substance/Drug Use: never Female Reproductive History : 5 Data Anesthesia 04/03/23 03:50 04/03/23 03:50 Short CBC 04/03/23 Range/Units 03:50 WBC 11.92 H (3.29-11.43) 10^3/uL Hgb 9.70 L (11.27-16.99) g/dL Hct 31.1 L (36-47) % MCV 83.4 L (85-98) fl Plt Count 245 (157-399) 10^3/cmm Neut % (Auto) 65.6 % Neut # (Auto) 7.82 H (1.8-7.7) 10^3/uL BMP 04/03/23 03:50 Sodium 139 Potassium 3.9 Chloride 105 Carbon Dioxide 24 BUN 8 Creatinine 0.5 Glucose 78 Calcium 8.5 Liver Function 04/03/23 Range/Units 03:50 Total Bilirubin 0.2 (0.15-1.2) mg/dL AST 12 (0-32) U/L ALT 10 (0-33) U/L Alkaline Phosphatase 120 H (35-105) U/L Albumin 3.1 L (3.5-5.2) g/dL Blood Bank 04/03/23 03:50 Blood Type A Positive Rho(D) Type Rh positive Antibody Screen Negative Cardiac Studies: Echocardiogram Ultrasound 10/18/20
[2023-04-03] MEDS: ROPivacaine syringe 100 MG/50 ML SYRINGE 10 MG EPIDURAL (11:18)
--- NOTE | 2023-04-03 11:40 | ANES.PROC ---
Anesthesia Procedures Procedure/Date: 04/03/23 Epidural: Time Out Performed: Yes Consents Signed: Procedure Consent Consent: requested by attending/covering physician, from patient, from other, risks and benefits reviewed and patient agrees to proceed Lumbar Level: L3-L4 Epidural position: sitting Epidural procedure: sterile prep of area, 1% lidocaine to numb the area, 18 g needle, negative for paresthesia passed, neg for paresthesia, test dose given, 1.5% xylocaine 1:200k epi (5), 0.2% Ropivacaine bolus ml (5), placed PCEA, no systemic response, sterile dressing applied, L.U.D. no apparent complications and 0.2% Ropiavacaine @ mls/hr (10) Additional Comments: BUDDY at 4.5 cm, threaded to 11.5 cm
[2023-04-03] MEDS: lidocaine 2% INJ 20 mL INJECTION (12:53)
--- NOTE | 2023-04-03 13:23 | PM.DELIVERY ---
Delivery Note: Date of delivery: April 03, 2023 Pre-delivery diagnoses: Term Spontaneous Rupture of Membranes Pre-eclampsia without severe features Post-delivery diagnoses: Same plus delivery of viable male Procedure: Spontaneous Vaginal Delivery Delivering Physician: Bess Smith DO Estimated blood loss (mL): 350 Pre-Delivery Course: Admitted on 04/02/23 for induction of labor due to pre-eclampsia without severe features. Unable to start induction due to availability and monitored. At 3:23am on 04/03/23 patient with SROM with clear fluid. Pitocin low dose started subsequently and patient progressed to 4/90/-3. Epidural obtained and quickly progressed to complete. Delivery: Patient progressed to complete. Patient placed in lithotomy position. Patient pushed with adequate effort. Head delivered in LITTLE position, no nuchal cord was present. Shoulders and rest of body delivered without difficulty with epidural anesthesia. Mouth and nares bulb suctioned. Infant placed on maternal abdomen. Cord clamped and cut after 1 minute delay. Placenta spontaneously delivered spontaneously and intact. Pitocin started. Fundus was noted to be firm. The vagina and cervix were inspected and 2 vaginal sulcus first degree and 2 labial first degree lacerations were noted. Bilateral vaginal sulcus lacerations and right sided translabial first degree laceration repaired with 3-0 Vicryl suture. Fundus was again noted to be firm. Male born at 12:30pm with 8/9 weighing 3890g and measuring 20.75 in length Placenta noted to be intact with centrally inserted umbilical cord and 3 vessel cord. Complications: Maternal none none History History History 2 Term 0 0 Miscarriages/Ectopic 1 Living Children 0 Coding Level of Care Code Acute Code for Chg Fwd Diagnoses
--- NOTE | 2023-04-03 15:17 | PC.NURSE ---
Fundal massage performed by Dr. Smith. This RN at bedside.
--- NOTE | 2023-04-03 15:20 | PC.NURSE ---
Dr. Smith at bedside performing perineal repair and fundal massage. This RN at bedside.
[2023-04-03] MEDS: ibuprofen 800 mg tablet PO ×2 (16:32→23:00)
[2023-04-03] MEDS: lanolin oint 7 gm 1 APPLIC TOPICAL (17:37)
[2023-04-03] MEDS: benzocaine-menthol 78 gm Canister 1 SPRAY TOPICAL (17:37)
[2023-04-03] MEDS: docusate sodium 100 mg Capsule PO (17:37)
--- NOTE | 2023-04-03 18:51 | PC.NURSE ---
This nurse assisted pt out of bed and ambulated to bathroom. Pt became slightly dizzy while ambulating back to bed. Pt moved to room via wheelchair.
[2023-04-04 01:15] LABS: Hematocrit 24.2 % (36-47); Mean Corpuscular HGB Conc 31.8 g/dL (30-55); Mean Corpuscular Hemoglobin 26.4 pg (27-33); Mean Corpuscular Volume 82.9 fl (85-98); Mean Platelet Volume 10.5 fL (7.4-10.4); Platelet Count 236 10^3/cmm (157-399); Red Blood Count 2.92 10^6/uL (3.85-5.65); Red Cell Distribution Width 13.2 % (12.1-15.1); White Blood Count 19.28 10^3/uL (3.29-11.43)
[2023-04-04] MEDS: ondansetron 2 mg/ML SDV 2 mL 4 MG IVP (04:46)
[2023-04-04 04:52] VITALS: BP 139/81; PULSE 106; RESP 16; TEMP 36.6; O2SAT 99
--- NOTE | 2023-04-04 08:00 | ANE.PACU2 ---
Inpatient post-anesthesia follow up: Airway intact: Yes Vital signs: Temperature 98.3 F Pulse Rate 93 Respiratory Rate 18 Blood Pressure 137/80 Pulse Oximetry 99 Oxygen Delivery Me thod Room Air Oxygen Flow Rate Fraction of Inspir ed Oxygen Hydration adequate: Yes Nausea and vomiting: No Pain level: 1 Mental status: Baseline
[2023-04-04] MEDS: prenatal vitamin Capsule 1 CAP PO (08:56)
[2023-04-04] MEDS: docusate sodium 100 mg Capsule PO (08:56)
[2023-04-04] MEDS: ibuprofen 800 mg tablet PO ×2 (08:56→15:40)
[2023-04-04 10:15] VITALS: BP 136/82; PULSE 108; RESP 17; TEMP 36.6
[2023-04-04 15:44] VITALS: BP 134/83; PULSE 92; RESP 18; TEMP 36.8
--- NOTE | 2023-04-04 17:22 | PM.OBGYDC ---
Discharge Providers BIOMETRICIAN Date of Admission: 04/02/23 08:50 Date of Discharge: 04/04/23 Attending Provider at Admission: Bess Smith DO Attending Provider at Discharge: Bess Smith DO Primary Care Provider: Bess Smith DO Diagnoses at Discharge Discharge Diagnosis (1) Pre-eclampsia: Status: Acute (2) Spontaneous vaginal delivery: Status: Acute Reason for Visit Reason for Visit: elevated blood pressure Hospital Course Hospital Course Pre-Delivery Course:?? Admitted on 04/02/23 for induction of labor due to pre-eclampsia without severe features. Unable to start induction due to availability and monitored. At 3:23am on 04/03/23 patient with SROM with clear fluid. Pitocin low dose started subsequently and patient progressed to 4/90/-3. Epidural obtained and quickly progressed to complete. Delivery:?? Patient progressed to complete. Patient placed in lithotomy position. Patient pushed with adequate effort. Head delivered in LITTLE position, no nuchal cord was present. Shoulders and rest of body delivered without difficulty with epidural anesthesia. Mouth and nares bulb suctioned. placed on maternal abdomen. Cord clamped and cut after 1 minute delay. Placenta spontaneously delivered spontaneously and intact. Pitocin started. Fundus was noted to be firm. The vagina and cervix were inspected and 2 vaginal sulcus first degree and 2 labial first degree lacerations were noted. Bilateral vaginal sulcus lacerations and right sided translabial first degree laceration repaired with 3-0 Vicryl suture. Fundus was again noted to be firm. Male born at 12:30pm with 8/9 weighing 3890g and measuring 20.75 in length Placenta noted to be intact with centrally inserted umbilical cord and 3 vessel cord. Complications: Maternal none ? Infant none Hospital course: Patient underwent on 04/03/23. course was uncomplicated. Following delivery patient ambulated well, tolerated a normal diet without nausea or vomiting. Pain was well controlled on PO medications, well, no leg/calf pain, no calf/leg swelling, normal urination, passing gas and normal bowel movements. Blood pressures have improved after delivery to 130s/80s. Vaginal bleeding minimal and decreasing. labs significant for hemoglobin 7.7 from 9.7 on admission. She is started on iron supplementation. Follow-up planned for 2 and 6 weeks . Warning signs for endometritis, pre-eclampsia, DVT/PE, mastitis were reviewed, discussed additional warning signs including increased vaginal bleeding, worsening abdominal pain. Pelvic rest and activity precautions reviewed as well. She is discharged on 04/04/23 in stable condition. Information Peripartum Data: Delivery Method: Vaginal Physical Exam Const: COMMON NORMALS: no acute distress, patient oriented x3, alert and well nourished Resp: COMMON NORMALS: normal respiratory effort and clear to auscultation bilaterally AUSCULTATION: clear to auscultation bilaterally Cardio: COMMON NORMALS: regular rate, regular rhythm, S1 normal heart sound present, S2 normal heart sound present and No murmurs present (Cardio) RATE: regular rate RHYTHM: regular rhythm HEART SOUNDS: S1 normal heart sound present and S2 normal heart sound present : OTHER: gravid Extremity: NARRATIVE EXTREMITY EXAM: No LE edema Neuro: COMMON NORMALS: patient oriented x3 SENSORIUM/ORIENTATION: Yes alert Psych: COMMON NORMALS: mental status grossly normal and speech normal SPEECH: Yes normal speech History History History 2 Term 1 0 Miscarriages/Ectopic 1 Living Children 1 Discharge Data Studies Completed and Pending Laboratory Results WBC 19.28 10^3/uL (3.29-11.43) H 04/04/23 01:08 RBC 2.92 10^6/uL (3.85-5.65) L 04/04/23 01:08 Hgb 7.70 g/dL (11.27-16.99) L 04/04/23 01:08 Hct 24.2 % (36-47) L 04/04/23 01:08 MCV 82.9 fl (85-98) L 04/04/23 01:08 MCH 26.4 pg (27-33) L 04/04/23 01:08 MCHC 31.8 g/dL (30-55) 04/04/23 01:08 RDW 13.2 % (12.1-15.1) 04/04/23 01:08 Plt Count 236 10^3/cmm (157-399) 04/04/23 01:08 MPV 10.5 fL (7.4-10.4) H 04/04/23 01:08 Neut % (Auto) 65.6 % 04/03/23 03:50 Lymph % (Auto) 24.0 % 04/03/23 03:50 [place] % (Auto) 7.2 % 04/03/23 03:50 Eos % (Auto) 2.1 % 04/03/23 03:50 Baso % (Auto) 0.3 % 04/03/23 03:50 Neut # (Auto) 7.82 10^3/uL (1.8-7.7) H 04/03/23 03:50 Lymph # (Auto) 2.9 10^3/uL (0.8-4.8) 04/03/23 03:50 [place] # (Auto) 0.9 10^3/uL (0.2-0.9) 04/03/23 03:50 Eos # (Auto) 0.3 10^3/uL (0.0-0.8) 04/03/23 03:50 Baso # (Auto) 0.0 10^3/uL (0.0-0.1) 04/03/23 03:50 Nucleated RBC % (auto) 0 % 04/03/23 03:50 Nucleated RBCs # 0.0 /100WBC 04/03/23 03:50 Sodium 139 mmol/L (136-145) 04/03/23 03:50 Potassium 3.9 mmol/L (3.5-5.1) 04/03/23 03:50 Chloride 105 mmol/L (98-107) 04/03/23 03:50 Carbon Dioxide 24 mmol/L (22-29) 04/03/23 03:50 Anion Gap 13.9 (5-19) 04/03/23 03:50 BUN 8 mg/dL (6-20) 04/03/23 03:50 Creatinine 0.5 mg/dL (0.5-0.9) 04/03/23 03:50 GFR Calculation 151.6 mL/min (90-130) H 04/03/23 03:50 Glucose 78 mg/dL (65-115) 04/03/23 03:50 Calculated Osmolality 285 mOsm/kg (285-295) 04/03/23 03:50 Uric Acid 5.0 mg/dL (2.4-5.7) 04/03/23 03:50 Calcium 8.5 mg/dL (8.5-10.5) 04/03/23 03:50 Total Bilirubin 0.2 mg/dL (0.15-1.2) 04/03/23 03:50 AST 12 U/L (0-32) 04/03/23 03:50 ALT 10 U/L (0-33) 04/03/23 03:50 Alkaline Phosphatase 120 U/L (35-105) H 04/03/23 03:50 Total Protein 5.9 g/dL (6.6-8.7) L 04/03/23 03:50 Albumin 3.1 g/dL (3.5-5.2) L 04/03/23 03:50 Globulin 2.8 g/dL (1.3-4.6) 04/03/23 03:50 Urine Total Volume 2050 mL 04/02/23 08:50 Ur Total Protein 24 Hr 328.0 mg/24hr (0-150) H 04/02/23 08:50 Urine Total Protein 16.0 mg/dL (0-150) 04/02/23 08:50 Blood Type A Positive 04/03/23 03:50 Rho(D) Type Rh positive 04/03/23 03:50 Antibody Screen Negative 04/03/23 03:50 Vitals Last Vital Signs Temp 98.2 F 04/04/23 15:44 Pulse 92 04/04/23 15:44 Resp 18 04/04/23 15:44 BP 134/83 04/04/23 15:44 Pulse Ox 99 04/04/23 04:52 O2 Del Method Room Air 04/04/23 04:52 Results Labs OB ([facility]): Obstetrics US 03/11/23 Blood Type A Positive 04/03/23 Antibody Screen Negative 04/03/23 Hct 24.2 % (36-47) L 04/04/23 Hgb 7.70 g/dL (11.27-16.99) L 04/04/23 Rho(D) Type Rh positive 04/03/23 Plt Count 236 10^3/cmm (157-399) 04/04/23 Uric Acid 5.0 mg/dL (2.4-5.7) 04/03/23 Ser , Semi-Qnt 481124.00 mIU/mL 09/13/22 HCG, Qual Positive (Negative) H 09/13/22 Urine Opiates Screen NEGATIVE ng/mL (NEGATIVE) 03/09/19 Ur Barbiturates Screen NEGATIVE ng/mL (NEGATIVE) 03/09/19 Ur Phencyclidine Scrn NEGATIVE ng/mL (NEGATIVE) 03/09/19 Ur Amphetamines Screen NEGATIVE ng/mL (NEGATIVE) 03/09/19 U Benzodiazepines Scrn NEGATIVE ng/mL (NEGATIVE) 03/09/19 Urine Cocaine Screen NEGATIVE ng/mL (NEGATIVE) 03/09/19 U Marijuana (THC) Screen POSITIVE ng/mL (NEGATIVE) H 03/09/19 Micro Urine Specimen 01/23/23 Pap Smear Interpret See note 10/09/20 Discharge Plan Discharge Patient Disposition: Home Condition: Stable Prescriptions: New ibuprofen 800 mg Tablet 800 mg PO TID Qty: 90 0RF docusate sodium 100 mg Capsule 100 mg PO BID Qty: 90 0RF ferrous sulfate 325 mg (65 mg iron) tablet 325 mg PO DAILY Qty: 90 0RF Continued albuterol sulfate 90 mcg/actuation HFA aerosol inhaler 2 inh INHALATION Q4H PRN (Reason: shortness of breath or wheezing) Qty: 18 0RF sertraline 100 mg tablet 100 mg PO DAILY PNV cmb#95-ferrous fumarate-FA [] 28 mg iron- 800 mcg tablet 1 tab PO DAILY Discharge Orders: Discharge Order (Routine); Ordered 04/04/23 Ordered By: Bess Smith Referrals: Bess Smith DO [Primary Care Provider] - (Please call [facility] to schedule your 2 week and 6 week follow up with Dr. Smith) Discharge Diet: Regular Discharge Activity: Increase activity as tolerated Patient Instructions: Iron Supplements (By mouth), Ibuprofen (By mouth), Laxative, Stool Softeners (By mouth), Depression (DC), Perineal Care (DC), Expression, Collection and Storage of Breast Milk (DC), and Nipple Soreness (DC), and Breast Engorgement (DC), How to Increase Your Milk Supply (DC), and Your Diet (DC), Bleeding (DC), Vaginal Delivery (DC), Breast Care for the Mother (DC), OB Discharge Report, OB Food/Drug Interaction Guide, OB Care at Home, Opioid Safety, Abnormal Bleeding Activity Restrictions/Additional Instructions: Pelvic rest for 6 weeks. Follow-up with Dr. Smith at 2 and 6 weeks . Discharge Attestations BIOMETRICIAN Time Spent in Discharge Care*: less than 30 min Coding Level of Care Code Acute Code for Chg Fwd Diagnoses Pre-eclampsia O14.90 Spontaneous vaginal delivery O80
[2023-04-04 20:30] VITALS: BP 137/80; PULSE 93; RESP 18; TEMP 36.8
== END 2023-04-04 20:30 | disposition home or self-care (01) | DRG 807 ==
LOC: OBGYN 17:24 → OPOB 04-03 08:48 → OBGYN 04-03 17:14
PROVIDERS: Admitting Provider Family Medicine; PCP Family Medicine; Visit Provider Family Medicine
DX: O14.04 Mild to moderate pre-eclampsia, complicating childbirth (principal); Z37.0 Single live birth; O12.24 Gestational edema with proteinuria, complicating childbirth; O74.5 Spinal and epidural anesthesia-induced headache during labor and delivery; O70.0 First degree perineal laceration during delivery; Z3A.37 37 weeks gestation of pregnancy
CPT/HCPCS: 36415; 59025; 59409; 80053; 83986; 84156; 84550; 85025; 85027; 86850; 86900; 99211; J2405; J2590; J2765; J2795; J7120; J7121

== ENCOUNTER → 2023-10-10 12:51 | Outpatient (BNVA) | payer MEDICAID, SELFPAY | PROVIDERS: PCP Family Medicine; Visit Provider Registered Nurse Neonatal Intensive Care | DX: J02.9 Acute pharyngitis, unspecified (principal) | CPT/HCPCS: 87880 ==

== ENCOUNTER 2023-11-17 08:54 | Outpatient (CLI) | payer MEDICAID, SELFPAY ==
--- NOTE | 2023-11-17 08:58 | US_ITS ---
WS: [id number] RIGHT UPPER QUADRANT ULTRASOUND HISTORY: RUQ PAIN COMPARISON: 12/19/2022 Liver: 14.8 cm in length. Normal size liver and echogenicity. No bile duct dilatation or mass. Portal Vein: Normal hepatopetal flow with monophasic waveform. Gallbladder: Normally distended gallbladder with no stones or wall thickening. CBD: 0.2 cm Pancreas: Normal size and echogenicity. Right kidney: 10.4 cm in length. Normal size and echogenicity. No hydronephrosis or mass. Aorta and IVC: Unremarkable abdominal aorta and IVC. No ascites. US/US abdomen limited 13082 IMPRESSION: Normal right upper quadrant ultrasound.
== END 2023-11-17 08:55 | disposition home or self-care (01) ==
PROVIDERS: PCP Family Medicine; Visit Provider Family Medicine
DX: R10.11 Right upper quadrant pain (principal)
CPT/HCPCS: 76705

== ENCOUNTER 2023-12-21 12:42 | Emergency (ER) | payer MEDICAID, SELFPAY ==
[2023-12-21 13:11] VITALS: BP 119/68; PULSE 71; RESP 16; TEMP 36.8; O2SAT 97
--- NOTE | 2023-12-21 13:19 | W.ED.HA ---
HPI - Headache General: Chief Complaint: Headache Stated Complaint: ARREOLA 3 days Time Seen by Provider: 12/21/23 13:14 History of Present Illness: 23-year-old female comes in today for complaints of migraine headache for 3 days. Patient appears in mild to moderate pain. Patient reports migraine similar to prior headaches. Last time patient had a migraine this bad that she had to seek treatment was over 2 years. Patient denies . Review of Systems General: Reports: 10 or more systems reviewed and unremarkable except in HPI and below Neuro: Reports: headache(s) PFSH ED PFSH: Medical History Acute pharyngitis Anxiety Chronic migraine without aura, intractable, with status migrainosus Asthma Surgical History Hx of appendectomy H/O tympanostomy (~2001) S/P tonsillectomy (~2004) Age 5[address] [facility]formed by [address] Lombardo at [facility] Family History Mother Diabetes Hyperlipidemia Hypertension Stroke CAD (coronary artery disease) Social History Smoking and tobacco/nicotine status: never used tobacco/nicotine Alcohol intake: never Substance/Drug Use: never Physical Exam Const: COMMON NORMALS: alert HENMT: COMMON NORMALS: normocephalic HEAD & SCALP: normocephalic THROAT: posterior oropharynx normal Neck/C-Spine: COMMON NORMALS: no meningeal signs Resp: COMMON NORMALS: normal respiratory effort Cardio: COMMON NORMALS: regular rate and regular rhythm RATE: regular rate RHYTHM: regular rhythm GI: COMMON NORMALS: Soft to palpation and non-tender PALPATION: Yes Soft to palpation Back/Pelvis: COMMON NORMALS: thoracic and lumbar spine normal to inspection Extremity: COMMON NORMALS: full ROM Neuro: SENSORIUM/ORIENTATION: Yes alert MENINGEAL SIGNS: Yes no meningeal signs Skin: COMMON NORMALS: turgor normal GENERAL SKIN EXAM: turgor normal Course Vital Signs: Vital signs: Vital Signs Temperature 98.3 F 12/21/23 13:11 Pulse Rate 71 12/21/23 13:11 Respiratory Rate 16 12/21/23 13:11 Blood Pressure 119/68 12/21/23 13:11 Pulse Oximetry 97 12/21/23 13:11 MDM - Headache Medical Decision Making 23-year-old female comes in today for complaints of migraine headache for 3 days. No focal neurodeficits are noted. Patient moves all extremities well. Posterior pharynx is pink and moist. Lungs are clear to auscultation. Abdomen soft nontender. Vital signs are normal. Differential diagnosis migraine headache, tension headache, viral syndrome. 1430, patient reported significant improvement of migraine headache and requested to go home. Patient was discharged home with recommendations for follow-up with primary care for further instructions and treatment. No radiology studies performed this visit Discharge Plan Discharge Patient Disposition: Home Clinical Impression: Migraine Qualifiers: Migraine type: unspecified Status migrainosus presence: without status migrainosus Intractability: intractable Qualified Code(s): G43.919 - Migraine, unspecified, intractable, without status migrainosus Condition: Stable Prescriptions: No Action ibuprofen 800 mg tablet 800 mg PO Q8H PRN (Reason: pain) Qty: 60 0RF albuterol sulfate 90 mcg/actuation HFA aerosol inhaler 2 inh INHALATION Q4H PRN (Reason: shortness of breath or wheezing) Qty: 18 0RF sertraline 100 mg tablet 100 mg PO DAILY PNV cmb#95-ferrous fumarate-FA [] 28 mg iron- 800 mcg tablet 1 tab PO DAILY ibuprofen 800 mg Tablet 800 mg PO TID Qty: 90 0RF docusate sodium 100 mg Capsule 100 mg PO BID Qty: 90 0RF ferrous sulfate 325 mg (65 mg iron) tablet 325 mg PO DAILY Qty: 90 0RF Discharge Orders: Discharge ED (Routine); Ordered 12/21/23 Ordered By: Pepe Phillips Referrals: Bess Smith DO [Primary Care Provider] - Discharge Diet: Usual diet Discharge Activity: Increase activity as tolerated Patient Instructions: Migraine Headache (ED) Activity Restrictions/Additional Instructions: Home and rest. Drink plenty water and fluids. Continue with routine care. Follow-up with primary care for further instructions. Coding Level of Care Code ED [employer]idential [employer] Install[employer] for Ester Whatley
[2023-12-21] MEDS: ketorolac 30 mg/mL INJ 15 MG IVP (13:44)
[2023-12-21] MEDS: metoclopramide 5 mg/mL SDV 2 mL 10 MG IVP (13:46)
[2023-12-21] MEDS: diphenhydrAMINE 50 mg/mL SDV 1mL 25 MG IVP (13:47)
[2023-12-21] MEDS: sodium chloride 0.9% 250 ML IV (13:50)
== END 2023-12-21 14:47 | disposition home or self-care (01) ==
PROVIDERS: Emergency Provider Nurse Practitioner Family; PCP Family Medicine
DX: G43.919 Migraine, unspecified, intractable, without status migrainosus (principal)
CPT/HCPCS: 96374; 96375; 99284; J1200; J1885; J2765; J7050

== ENCOUNTER 2024-01-12 09:54 | Outpatient (CLI) | payer MEDICAID, SELFPAY ==
--- NOTE | 2024-01-12 10:00 | MR_ITS ---
WS: [id number] MRI BRAIN WITH AND WITHOUT CONTRAST HISTORY: HEADACHE, UNSPECIFIED COMPARISON: CT head 11/01/2022 TECHNIQUE: Multiplanar imaging performed through the brain with MultiHance 13 ml's IV. No acute infarcts are seen. Lawler-white matter differentiation is well preserved. Tiny subcentimeter p osterior RIGHT frontal subcortical white matter lesion. Very nonspecific. Otherwise no signal abnorma lity within the brain. Normal hippocampal formations. No susceptibility artifacts or prior lacunar infarcts. Ventricles and extra-axial spaces are normal. Clivus and pituitary gland are normal. Visualized posterior fossa and brainstem are also normal. Postcontrast images are negative for masses or vascular malformations. Dural venous sinuses are normal. Paranasal sinuses: Large RIGHT frontal sinus mucous retention cyst. Mastoid air cells: Normal. Calvarium and scalp: Normal. MR/MR head wo/w con [id number] IMPRESSION: 1. No acute infarct or enhancing mass. No hemorrhage. 2. Normal hippocampal formations. 3. No Chiari malformation. 4. No hydrocephalus.
[2024-01-12] MEDS: gadobenate dimeglumine 20 mL vial IV (10:18)
== END 2024-01-12 09:55 | disposition home or self-care (01) ==
LOC: RAD 09:55
PROVIDERS: PCP Family Medicine; Visit Provider Family Medicine
DX: R51.9 Headache, unspecified (principal); E22.1 Hyperprolactinemia
CPT/HCPCS: 70553; A9577